=== PATIENT | female | born 1965 ===

== ENCOUNTER 2018-08-10 12:36 | Inpatient (IN) | payer OTHER ==
[2018-08-10 15:00] LABS: BASO # 0.04 K/mm3 (0.0-2.0); BASO % 0.5 % (0.0-3.0); EOS # 0.2 (0.0-0.7); EOS % 2.8 % (1.5-5.0); GRAN # 5.18 (1.4-6.5); GRAN % 65.6 % (50.0-68.0); HEMOGLOBIN 11.2 g/dL (12.0-16.0); LYMPH # 1.9 (1.2-3.4); LYMPH % 23.7 % (22.0-35.0); MEAN CELL VOLUME 90.5 fl (80.0-105.0); MEAN CORPUSCULAR HEMOGLOBIN 28.8 pg (25.0-35.0); MEAN CORPUSCULAR HGB CONC 31.8 g/dl (31.0-37.0); MEAN PLATELET VOLUME 10.2 fl (7.0-11.0); MONO # 0.6 (0.1-0.6); MONO % 7.4 % (1.0-6.0); RBC 3.89 10^6/uL (3.5-6.1); RED CELL DISTRIBUTION WIDTH 12.9 % (11.5-14.5); WHITE BLOOD COUNT 7.9 10^3/uL (4.5-11.0)
[2018-08-10 15:03] LABS: INR 0.95; PARTIAL THROMBOPLASTIN TIME 40.8 Seconds (25.1-36.5); PROTHROMBIN TIME 10.8 SECONDS (9.4-12.5)
--- NOTE | 2018-08-10 15:23 | RAD ---
Date of service: 08/10/2018 PROCEDURE: CHEST RADIOGRAPH, 1 VIEW HISTORY: possible admission COMPARISON: None available. FINDINGS: LUNGS: The lungs are well inflated and clear. PLEURA: No pneumothorax or pleural effusion. CARDIOVASCULAR: The heart is normal in size. No aortic atherosclerotic calcifications present. OSSEOUS STRUCTURES: Within normal limits for the patient's age. VISUALIZED UPPER ABDOMEN: Normal. OTHER FINDINGS: None. IMPRESSION: No active pulmonary disease.
[2018-08-10 15:39] LABS: ALB/GLOB RATIO 1.1 (1.1-1.8); ALBUMIN 4.3 g/dL (3.0-4.8); CALCIUM 9.4 mg/dL (8.4-10.5)
--- NOTE | 2018-08-10 15:42 | RAD ---
Date of service: 08/10/2018 PROCEDURE: Left Foot Radiographs. HISTORY: pain COMPARISON: None. FINDINGS: BONES: There has been previous amputation of the 5th metatarsal and 5th toe. There is bony fusion and deformity of the 4th and 5th metatarsals. JOINTS: Normal. SOFT TISSUES: There is a soft tissue defect on the plantar surface of the foot. There is no adjacent bony destruction to suggest osteomyelitis OTHER FINDINGS: None. IMPRESSION: Soft tissue ulcer on the plantar aspect of the foot with no evidence of osteomyelitis
--- NOTE | 2018-08-10 15:43 | CP.PCM.CON ---
History of Present Illness - History of Present Illness History of Present Illness: Podiatry Consult Note for Dr. Singleton: 52 yo female patient with PMHx of, seen and evaluated for L plantar ulceration. Pt states she is coming to the ED today due to complaints of fever/chills and a painful, draining wound to the left plantar foot. Patient states that she has had her foot ulcer for several months and it has not gotten any better; she notes she has chronic OM. Patient states she completed IV antibiotics and is currently on Cipro. Patient signed out AMA upon last admission at [facility]. Denies any new pedal complaints. Denies N/V/F/SOB. PMHx: DM PSHx: left foot 4h digit and 5th ray amputation ALL: Vancomycin Review of Systems - Review of Systems All systems: reviewed and no additional remarkable complaints except Review of Systems: As per HPI Past Patient History - Infectious Disease Hx of Infectious Diseases: None - Tetanus Immunizations Tetanus Immunization: Unknown - Past Medical History & Family History Past Medical History?: Yes - Past Social History Smoking Status: Former Smoker - CARDIAC Hx Hypercholesterolemia: Yes Hx Hypertension: No (denies) - PULMONARY Hx Asthma: Yes Hx Chronic Obstructive Pulmonary Disease (COPD): Yes Hx Sleep Apnea: Yes - NEUROLOGICAL Hx Neurological Disorder: No - HEENT Hx HEENT Problems: No - RENAL Hx Chronic Kidney Disease: No - ENDOCRINE/METABOLIC Hx Endocrine Disorders: Yes Hx Diabetes Mellitus Type 2: Yes - HEMATOLOGICAL/ONCOLOGICAL Hx Anemia: Yes - INTEGUMENTARY Hx Dermatological Problems: No - MUSCULOSKELETAL/RHEUMATOLOGICAL Hx Musculoskeletal Disorders: Yes Hx Falls: No Hx Herniated Disk: Yes Hx Osteomyelitis: Yes (left foot) - GASTROINTESTINAL Hx Gastrointestinal Disorders: Yes Hx Gastroesophageal Reflux: Yes (GERD) - GENITOURINARY/GYNECOLOGICAL Hx Genitourinary Disorders: No - PSYCHIATRIC Hx Anxiety: Yes Hx Substance Use: Yes - SURGICAL HISTORY Hx Surgeries: Yes Hx Section: Yes (x4) Other/Comment: Toe amputation left foot 5th digit. multiple debridements left foot ulcer - ANESTHESIA Hx Anesthesia: Yes Hx Anesthesia Reactions: No Hx Malignant Hyperthermia: No Meds Allergies/Adverse Reactions: Allergies Allergy/AdvReac Type Severity Reaction Status Date / Time vancomycin Allergy RASH Verified 02/25/18 12:06 Physical Exam - Constitutional Appears: Well, Non-toxic, No Acute Distress - Head Exam Head Exam: ATRAUMATIC, NORMOCEPHALIC - Extremities Exam Additional comments: Left Lower Extremity Exam: Vasc: DP and PT pulses 1/4 bilaterally, capillary refill <3 seconds to all remaining digits, temperature gradient warm to warm, no edema present Derm: 6 cm x 4 cm x 1.2 cm wound present on the lateral aspect of the left plantar midfoot, no drainage, undermining at the proximal aspect, negative probe to bone, hyperkeratotic wound margin, no streaking or periwound erythema present. Malodor appreciated Neuro: Gross sensation intact, diminished protective sensation Ortho: previous fifth ray and 4th digit amputation on the left foot, no pain upon palpation - Neurological Exam Neurological exam: Alert, Oriented x3 - Psychiatric Exam Psychiatric exam: Normal Affect, Normal Mood Results - Vital Signs Recent Vital Signs: Last Vital Signs Temp 98.3 F 08/10/18 12:38 Pulse 81 08/10/18 15:20 Resp 18 08/10/18 15:20 BP 118/79 08/10/18 15:20 Pulse Ox 98 08/10/18 15:20 - Labs Result Diagrams: 08/10/18 14:30 08/10/18 14:30 Labs: Laboratory Results - last 24 hr 08/10/18 08/10/18 08/10/18 14:30 14:30 14:30 WBC 7.9 RBC 3.89 Hgb 11.2 L Hct 35.2 L MCV 90.5 MCH 28.8 MCHC 31.8 RDW 12.9 Plt Count 345 MPV 10.2 Gran % 65.6 Lymph % (Auto) 23.7 [place] % (Auto) 7.4 H Eos % (Auto) 2.8 Baso % (Auto) 0.5 Gran # 5.18 Lymph # (Auto) 1.9 [place] # (Auto) 0.6 Eos # (Auto) 0.2 Baso # (Auto) 0.04 PT 10.8 INR 0.95 APTT 40.8 H Sodium 137 Potassium 5.0 Chloride 103 Carbon Dioxide 25 Anion Gap 15 BUN 24 H Creatinine 1.3 H Est GFR ( Amer) 52 Est GFR (Non-Af Amer) 43 Random Glucose 383 H* Calcium 9.4 Total Bilirubin 0.3 AST 20 ALT 19 Alkaline Phosphatase 143 H Total Protein 8.2 Albumin 4.3 Globulin 3.9 Albumin/Globulin Ratio 1.1 Assessment & Plan - Assessment and Plan (Free Text) Assessment: 52 year old female seen and evaluated in ED for left foot plantar ulceration w ith chronic osteomyelitis. Patient will be admitted for observation Plan: Patient seen and evaluated VSS, absent leukocytosis L foot x-rays taken: Post operative changes. Plantar soft tissue ulcer Continue Cipro at this time, no IV Abx Wound culture taken from L plantar ulceration Thank you for the consult - Date & Time Date: 08/10/18 Time: 15:44
--- NOTE | 2018-08-10 15:48 | ED PDOC ---
Arrival/HPI - General Chief Complaint: Abnormal Skin Integrity Time Seen by Provider: 08/10/18 12:50 Historian: Patient - History of Present Illness Narrative History of Present Illness (Text): 08/10/18 14:27 52 year old female with past medical history of IDDM, HLD, Asthma, and Migraines, presents to the Emergency department for evaluation of left plantar ulceration today. Patient informs chronic left foot ulceration, for which she was evaluated by Dr. Singleton in the wound care center 3 weeks ago. During her last visit, patient was advised to see a new rickshaw driver since Dr. Singleton is leaving and was told to come to the Emergency department to find a new rickshaw driver. Patent states she was on Levaquin for 20 days and is currently now on Cipro. Patient informs intermittent fever and chills, otherwise denies any other medical complaints. Patient denies any nausea, vomiting, diarrhea, abdominal pain, chest pain, shortness of breath, headache, dizziness, neck pain, back pain or any other complaints. Patient denies taking her diabetes medication today. Patient denies checking her blood sugar daily. Symptom Onset: Gradual Symptom Course: Unchanged Activities at Onset: Light Context: Home Past Medical History - Provider Review Nursing Documentation Reviewed: Yes - Infectious Disease Hx of Infectious Diseases: None - Tetanus Immunization Tetanus Immunization: Unknown - Cardiac Hx Hypertension: No (denies) - Pulmonary Hx Asthma: Yes Hx Chronic Obstructive Pulmonary Disease (COPD): Yes Hx Sleep Apnea: Yes - Neurological Hx Neurological Disorder: No - HEENT Hx HEENT Disorder: No - Renal Hx Renal Disorder: No - Endocrine/Metabolic Hx Endocrine Disorders: Yes Hx Diabetes Mellitus Type 2: Yes - Hematological/Oncological Hx Anemia: Yes - Integumentary Hx Dermatological Disorder: No - Musculoskeletal/Rheumatological Hx Musculoskeletal Disorders: Yes Hx Falls: No Hx Herniated Disk: Yes Hx Osteomyelitis: Yes (left foot) - Gastrointestinal Hx Gastrointestinal Disorders: Yes Hx Gastroesophageal Reflux: Yes (GERD) - Genitourinary/Gynecological Hx Genitourinary Disorders: No - Psychiatric Hx Anxiety: Yes Hx Substance Use: Yes - Surgical History Hx Section: Yes (x4) Other/Comment: Toe amputation left foot 5th digit. multiple debridements left foot ulcer - Anesthesia Hx Anesthesia: Yes Hx Anesthesia Reactions: No Hx Malignant Hyperthermia: No - Suicidal Assessment Feels Threatened In Home Enviroment: No Family/Social History - Physician Review Nursing Documentation Reviewed: Yes Family/Social History: Unknown Family HX Smoking Status: Former Smoker Hx Alcohol Use: No Hx Substance Use: Yes Allergies/Home Meds Allergies/Adverse Reactions: Allergies vancomycin Allergy (Verified 02/25/18 12:06) RASH Home Medications: Home Meds Medication Instructions Recorded Confirmed Alprazolam [Xanax] 0.5 mg PO Q12 06/07/16 08/10/18 metFORMIN [glucOPHAGE] 850 mg PO BID 06/07/16 08/10/18 Gemfibrozil [Lopid] 600 mg PO DAILY 03/07/17 08/10/18 Zolpidem [Ambien] 10 mg PO HS 04/24/17 08/10/18 Acetaminophen/Butalbital/Caf 1 tab PO Q12 PRN 02/26/18 08/10/18 [Fioricet] Albuterol Sulfate [Ventolin Hfa] 2 puff IH Q4 PRN 02/26/18 07/13/18 Omeprazole 40 mg PO DAILY 02/26/18 07/13/18 Insulin Lispro [humALOG] 45 unit SC BID 07/13/18 07/13/18 Atorvastatin [Lipitor] 1 tab PO HS 08/10/18 08/10/18 Baclofen [Lioresal] 1 tab PO TID 08/10/18 08/10/18 Empagliflozin [Jardiance] 1 tab PO DAILY 08/10/18 08/10/18 Fluticasone/Vilanterol 200/25 1 puff IH DAILY 08/10/18 08/10/18 [Breo Ellipta 200-25 Mcg INH] Insulin Lispro Mix 75/25 [HumaLOG 1 unit SC DAILY 08/10/18 08/10/18 Mix 75/25] Oxycodone HCl/Acetaminophen 1 tab PO PRN PRN 08/10/18 08/10/18 [Endocet 10-325 mg Tablet] Polyethylene Glycol 3350 [Miralax] 17 g PO PRN PRN 08/10/18 08/10/18 Review of Systems - Physician Review All systems were reviewed & negative as marked: Yes - Review of Systems Constitutional: Fevers Eyes: absent: Vision Changes Respiratory: absent: SOB, Cough Cardiovascular: absent: Chest Pain, HARRELL Gastrointestinal: absent: Abdominal Pain, Diarrhea, Nausea, Vomiting Genitourinary Female: absent: Dysuria, Urine Output Changes Musculoskeletal: absent: Back Pain, Neck Pain Skin: Other (left foot ulceration) Neurological: absent: Headache, Dizziness Endocrine: absent: Diaphoresis Psychiatric: absent: Anxiety Physical Exam Vital Signs Reviewed: Yes Vital Signs Temp Pulse Resp BP Pulse Ox 08/10/18 15:20 81 18 118/79 98 08/10/18 14:36 89 18 115/78 98 08/10/18 12:38 98.3 F 96 H 18 111/73 98 Temperature: Afebrile Blood Pressure: Normal Pulse: Regular Respiratory Rate: Normal Appearance: Positive for: Well-Appearing, Non-Toxic, Comfortable Pain Distress: None Mental Status: Positive for: Alert and Oriented X 3 - Systems Exam Head: Present: Atraumatic, Normocephalic Pupils: Present: PERRL Extroacular Muscles: Present: EOMI Conjunctiva: Present: Normal Neck: Present: Normal Range of Motion Respiratory/Chest: Present: Clear to Auscultation, Good Air Exchange. No: Respiratory Distress, Accessory Muscle Use Cardiovascular: Present: Regular Rate and Rhythm, Normal S1, S2. No: Murmurs Abdomen: No: Tenderness, Distention, Peritoneal Signs Upper Extremity: Present: Normal Inspection. No: Cyanosis, Edema Lower Extremity: Present: Normal ROM, Other (2-3 cm deep open wound noted to plantar aspect of left foot.). No: Edema Neurological: Present: GCS=15, CN II-XII Intact, Speech Normal Skin: Present: Warm, Dry, Normal Color. No: Rashes Psychiatric: Present: Alert, Oriented x 3, Normal Insight, Normal Concentration Medical Decision Making ED Course and Treatment: 08/10/18 14:27 Impression: 52 year old female presents to the Emergency department for evaluation of left foot ulceration. Plan: -- EKG -- Labs -- Chest X- Ray -- Wound Culture -- X-ray of Left foot -- Reassess and disposition Prior Visits: Notes and results from previous visits were reviewed. Progress Notes: X-ray left foot : Soft tissue ulcer on the plantar aspect of the foot with no evidence of osteomyelitis. CXR : NAD, as read by PA. Labs reviewed : wbc 7.9, glucose 383, bun 24 / creat 1.3 Patient seen and evaluated by podiatry resident Dr. John, recommends admission for IV antibiotics and wound debridement tomorrow. Cipro 400 mg IV, NS bolus IV and insulin 6 units SC ordered. Case d/w Dr. Rios, agrees with plan to admit to the hospitalist service. On re-evaluation, patient is resting in bed comfortably in no acute distress. Notified of plan for admission which she agrees to. Diagnostic results d/w the patient. - Lab Interpretations Lab Results: 08/10/18 14:30 08/10/18 14:30 Lab Results 08/10/18 14:30: Sodium 137, Potassium 5.0, Chloride 103, Carbon Dioxide 25, Anion Gap 15, BUN 24 H, Creatinine 1.3 H, Est GFR ( Amer) 52, Est GFR (Non-Af Amer) 43, Random Glucose 383 H*, Calcium 9.4, Total Bilirubin 0.3, AST 20, ALT 19, Alkaline Phosphatase 143 H, Total Protein 8.2, Albumin 4.3, Globulin 3.9, Albumin/Globulin Ratio 1.1 08/10/18 14:30: PT 10.8, INR 0.95, APTT 40.8 H 08/10/18 14:30: WBC 7.9, RBC 3.89, Hgb 11.2 L, Hct 35.2 L, MCV 90.5, MCH 28.8, MCHC 31.8, RDW 12.9, Plt Count 345, MPV 10.2, Gran % 65.6, Lymph % (Auto) 23.7, [place] % (Auto) 7.4 H, Eos % (Auto) 2.8, Baso % (Auto) 0.5, Gran # 5.18, Lymph # (Auto) 1.9, [place] # (Auto) 0.6, Eos # (Auto) 0.2, Baso # (Auto) 0.04 - RAD Interpretation Radiology Orders: 08/10/18 14:29 FOOT LEFT 3 VIEWS ROUTINE [RAD] Stat 08/10/18 14:30 CHEST ONE VIEW [RAD] Stat - PA / TELEPHONE AD TAKER / Resident Statement MD/DO has reviewed & agrees with the documentation as recorded. - Scribe Statement The provider has reviewed the documentation as recorded by the Scribe Arpan Hunter. All medical record entries made by the Scribe were at my direction and personally dictated by me. I have reviewed the chart and agree that the record accurately reflects my personal performance of the history, physical exam, medical decision making, and the department course for this patient. I have also personally directed, reviewed, and agree with the discharge instructions and disposition. Disposition/Present on Arrival - Present on Arrival Any Indicators Present on Arrival: No History of DVT/PE: No History of Uncontrolled Diabetes: No Urinary Catheter: No History of Decub. Ulcer: No History Surgical Site Infection Following: None - Disposition Have Diagnosis and Disposition been Completed?: Yes Diagnosis: Diabetic foot ulcer Disposition: HOSPITALIZED Disposition Time: 16:30 Patient Plan: Admission Condition: STABLE
[2018-08-10] MEDS ORDERED: Ciprofloxacin 400mg/200ml D5W 400 MG/200 ML BAG IVPB STA (16:03)
[2018-08-10] MEDS ORDERED: Insulin Regular 1 UNITS/0.01 ML ML SC STA (16:03)
[2018-08-10] MEDS ORDERED: Sodium Chloride 0.9% 1,000 ML IV STA ×2 (16:03→18:14)
--- NOTE | 2018-08-10 16:46 | CP.PCM.HP ---
History of Present Illness - History of Present Illness History of Present Illness: Resident History & Physical for Hospitalist Service Patient is a 52 year old female with past medical history of T2DM, HLD, asthma, migraines presenting with chief complaint of left lower extremity pain due to a wound on the plantar surface of her foot. She states this wound has been present for the past two years and she has chronic pain because of this. However the pain has worsened in severity over the past several months. Patient was in [place] recently for management of this wound and was unable to continue recommended antibiotics on discharge due to lack of insurance coverage. She has been taking ciprofloxacin for 2 days which was prescribed by Dr. Singleton. Pain is constant and described as sharp and stabbing in character. She rates the pain +10/10 in severity. She states keeping the foot wrapped and elevating it helps alleviate the pain. She also admits to chills. Denies fevers, nausea, vomiting, chest pain, shortness of breath, abdominal pain, dysuria. PMH: T2DM, HLD, asthma, migraines PSH: left foot 5th ray and 4th digit amputation SHx: denies alcohol and recreational drug use. 2 cigarettes a day for approximately 20 years. Allergies: vancomycin PMD: Dr. Vallejo 12 ROS was negative except as stated in HPI Present on Admission - Present on Admission Any Indicators Present on Admission: Yes History of Uncontrolled Diabetes: Yes Review of Systems - Constitutional Constitutional: Chills. absent: Fever, Headache - EENT Eyes: absent: Change in Vision Ears: absent: Abnormal Hearing - Cardiovascular Cardiovascular: absent: Chest Pain, Diaphoresis, Dyspnea - Respiratory Respiratory: absent: Cough - Gastrointestinal Gastrointestinal: absent: Abdominal Pain, Change in Bowel Habits - Genitourinary Genitourinary: absent: Dysuria - Integumentary Integumentary: Wounds Past Patient History - Infectious Disease Hx of Infectious Diseases: None - Tetanus Immunizations Tetanus Immunization: Unknown - Past Medical History & Family History Past Medical History?: Yes - Past Social History Smoking Status: Light Smoker < 10 Cigarettes Daily - CARDIAC Hx Hypertension: No (denies) - PULMONARY Hx Asthma: Yes Hx Chronic Obstructive Pulmonary Disease (COPD): Yes Hx Sleep Apnea: Yes - NEUROLOGICAL Hx Neurological Disorder: No - HEENT Hx HEENT Problems: No - RENAL Hx Chronic Kidney Disease: No - ENDOCRINE/METABOLIC Hx Endocrine Disorders: Yes Hx Diabetes Mellitus Type 2: Yes - HEMATOLOGICAL/ONCOLOGICAL Hx Anemia: Yes - INTEGUMENTARY Hx Dermatological Problems: No - MUSCULOSKELETAL/RHEUMATOLOGICAL Hx Musculoskeletal Disorders: Yes Hx Falls: No Hx Herniated Disk: Yes Hx Osteomyelitis: Yes (left foot) - GASTROINTESTINAL Hx Gastrointestinal Disorders: Yes Hx Gastroesophageal Reflux: Yes (GERD) - GENITOURINARY/GYNECOLOGICAL Hx Genitourinary Disorders: No - PSYCHIATRIC Hx Anxiety: Yes Hx Substance Use: Yes - SURGICAL HISTORY Hx Section: Yes (x4) Other/Comment: Toe amputation left foot 5th digit. multiple debridements left foot ulcer - ANESTHESIA Hx Anesthesia: Yes Hx Anesthesia Reactions: No Hx Malignant Hyperthermia: No Meds Allergies/Adverse Reactions: Allergies Allergy/AdvReac Type Severity Reaction Status Date / Time vancomycin Allergy RASH Verified 02/25/18 12:06 Physical Exam - Constitutional Appears: Non-toxic, No Acute Distress - Head Exam Head Exam: ATRAUMATIC, NORMOCEPHALIC - Eye Exam Eye Exam: EOMI, Normal appearance, PERRL - ENT Exam ENT Exam: Mucous Membranes Moist, Normal Exam - Neck Exam Neck exam: Positive for: Normal Inspection. Negative for: Lymphadenopathy, Tenderness - Respiratory Exam Respiratory Exam: Clear to Auscultation Bilateral, NORMAL BREATHING PATTERN. absent: Rales, Rhonchi, Wheezes, Respiratory Distress - Cardiovascular Exam Cardiovascular Exam: REGULAR RHYTHM, +S1, +S2 - GI/Abdominal Exam GI & Abdominal Exam: Normal Bowel Sounds, Soft. absent: Tenderness - Extremities Exam Extremities exam: Negative for: pedal edema Additional comments: 6 cm by 4 cm stage 3 wound on plantar surface of LLE Left 5th ray and 4th digit amputation Erythema surrounding wound No drainage +2/4 pulses - Neurological Exam Neurological exam: Alert, CN II-XII Intact, Oriented x3 - Skin Skin Exam: Intact, Normal Color, Warm Results - Vital Signs Recent Vital Signs: Last Vital Signs Temp 98.3 F 08/10/18 12:38 Pulse 81 08/10/18 15:20 Resp 18 08/10/18 15:20 BP 118/79 08/10/18 15:20 Pulse Ox 98 08/10/18 15:20 - Labs Result Diagrams: 08/10/18 14:30 08/10/18 14:30 Labs: Laboratory Results - last 24 hr 08/10/18 08/10/18 08/10/18 14:30 14:30 14:30 WBC 7.9 RBC 3.89 Hgb 11.2 L Hct 35.2 L MCV 90.5 MCH 28.8 MCHC 31.8 RDW 12.9 Plt Count 345 MPV 10.2 Gran % 65.6 Lymph % (Auto) 23.7 [place] % (Auto) 7.4 H Eos % (Auto) 2.8 Baso % (Auto) 0.5 Gran # 5.18 Lymph # (Auto) 1.9 [place] # (Auto) 0.6 Eos # (Auto) 0.2 Baso # (Auto) 0.04 PT 10.8 INR 0.95 APTT 40.8 H Sodium 137 Potassium 5.0 Chloride 103 Carbon Dioxide 25 Anion Gap 15 BUN 24 H Creatinine 1.3 H Est GFR ( Amer) 52 Est GFR (Non-Af Amer) 43 Random Glucose 383 H* Calcium 9.4 Total Bilirubin 0.3 AST 20 ALT 19 Alkaline Phosphatase 143 H Total Protein 8.2 Albumin 4.3 Globulin 3.9 Albumin/Globulin Ratio 1.1 Assessment & Plan - Assessment and Plan (Free Text) Assessment: Patient is a 52 year old female with past medical history of T2DM, HLD, asthma, migraines presenting with chief complaint of left lower extremity pain due to a wound on the plantar surface of her foot. Plan: LLE wound - Foot x-ray shows soft tissue defect on plantar surface, no adjacent bony sean truction to suggest osteomyelitis - Afebrile, no leukocytosis - Zosyn 3.375 gm IV Q8H - Zyvox 600 mg IV Q12 - NS @ 100 ccs/hr - Percocet 1 tab Q4H PRN - Followup wound and blood cultures - Podiatry consulted. Appreciate recs. - ID consulted. Appreciate recs. - PT eval T2DM - glucose on admission 383 - Hgba1c from 04/26 was 12.9 - Humalog 20 units SC BID - ISS HLD - Continue Lipitor 10 mg PO HS, Lopid 600 mg PO daily Asthma - Continue albuterol Case discussed with attending Dr. Padmini Claros PGY-1 - Date & Time Date: 08/10/18 Time: 18:00
[2018-08-10] MEDS ORDERED: Albuterol HFA 90 mcg/actuation (8 g) IH PRN (18:02)
[2018-08-10] MEDS ORDERED: Dextrose 50% SYRINGE Inj (50 ml) IV PRN (18:05)
[2018-08-10] MEDS ORDERED: Albuterol 0.083% Inhal Sol (2.5 mg/3 mL) UD IH PRN ×2 (18:28→18:29)
[2018-08-10] MEDS: Piperacillin/Tazobact 3.375 gm 100 ML IVPB SCH ×2 (20:13→21:59)
[2018-08-10] MEDS: Oxycodone/Acetaminophen 5/325 mg Tab PO PRN (20:13)
[2018-08-10] MEDS: Insulin Lispro 1 UNITS/0.01 ML SC SCH (20:45)
[2018-08-10] MEDS: Insulin Reg-LOW-Coverage SC SCH (21:45)
[2018-08-10] MEDS ORDERED: Linezolid 600 mg in D5W 300 ml 600 MG/300 ML BAG IVPB SCH (22:00)
[2018-08-10] MEDS ORDERED: Influenza Vaccine 60 mcg/0.5 mL SYR (4YR UP) IM ONE (22:44)
[2018-08-10] MEDS ORDERED: Pneumococcal 23-Valent Vaccine IM ONE (22:44)
[2018-08-11 00:12] VITALS: BMI 26.1
--- NOTE | 2018-08-11 03:31 | CP.PCM.PCO ---
Physician Communication Note - Physician Communication Note Physician Communication Note: Chart reviewed. Noted MRSA and E. coli (resist cipro) on Jun 2018 culture.
[2018-08-11 04:52] LABS: BASO # 0.01 K/mm3 (0.0-2.0); BASO % 0.2 % (0.0-3.0); EOS # 0.1 (0.0-0.7); GRAN # 5.36 (1.4-6.5); GRAN % 81.4 % (50.0-68.0); HEMOGLOBIN 10.5 g/dL (12.0-16.0); LYMPH # 0.5 (1.2-3.4); LYMPH % 8.2 % (22.0-35.0); MEAN CELL VOLUME 90.9 fl (80.0-105.0); MEAN CORPUSCULAR HEMOGLOBIN 28.9 pg (25.0-35.0); MEAN CORPUSCULAR HGB CONC 31.8 g/dl (31.0-37.0); MEAN PLATELET VOLUME 10.2 fl (7.0-11.0); MONO # 0.5 (0.1-0.6); MONO % 8.2 % (1.0-6.0); RBC 3.63 10^6/uL (3.5-6.1); RED CELL DISTRIBUTION WIDTH 12.8 % (11.5-14.5); WHITE BLOOD COUNT 6.6 10^3/uL (4.5-11.0)
[2018-08-11 05:35] LABS: ALBUMIN 3.5 g/dL (3.0-4.8); CALCIUM 9.1 mg/dL (8.4-10.5)
[2018-08-11] MEDS: Pantoprazole 40 mg EC Tab PO SCH (08:21)
[2018-08-11] MEDS: Insulin Reg-LOW-Coverage SC SCH (08:21)
--- NOTE | 2018-08-11 09:29 | CARD ---
APPROVED REPORT Date of service: 08/10/2018 EKG Measurement Heart [id number] <Conclusion> Normal sinus rhythm PRWP Septal infarct, age undetermined
[2018-08-11] MEDS: [UNRECOGNIZED DRUG - OTHER] IH SCH (09:46)
[2018-08-11] MEDS: Insulin Lispro 1 UNITS/0.01 ML SC SCH ×4 (09:46→18:08)
--- NOTE | 2018-08-11 09:55 | CP.PCM.PN ---
Subjective - Date & Time of Evaluation Date of Evaluation: 08/11/18 Time of Evaluation: 07:30 - Subjective Subjective: Resident Progress Note for Hospitalist Service Patient examined at bedside. No acute events overnight. Patient states that her LLE pain is well controlled. Denies any other complaints at this time. Objective - Vital Signs/Intake and Output Vital Signs (last 24 hours): Temp Pulse Resp BP Pulse Ox 97.8 F 78 18 126/81 99 08/11/18 06:00 08/11/18 06:00 08/11/18 06:00 08/11/18 06:00 08/11/18 06:00 Intake and Output: 08/11/18 08/11/18 06:59 18:59 Intake Total 850 Balance 850 - Medications Medications: Current Medications Acetaminophen (Tylenol 325mg Tab) 650 mg PO Q6H PRN PRN Reason: Fever >100.4 F Albuterol Sulfate (Albuterol 0.083% Inhal Loly (2.5 Mg/3 Ml) Ud) 2.5 mg IH [id number] PRN PRN Reason: Shortness of Breath Alprazolam (Xanax) 0.5 mg PO Q12 [facility]; Protocol Last Admin: 08/11/18 09:47 Dose: 0.5 mg Atorvastatin Calcium (Lipitor) 10 mg PO HS [facility] Last Admin: 08/10/18 21:47 Dose: Not Given Dextrose (Dextrose 50% Inj) 0 ml IV STAT PRN; Protocol PRN Reason: Hypoglycemia Protocol Gemfibrozil (Lopid) 600 mg PO DAILY [facility] Last Admin: 08/11/18 09:47 Dose: 600 mg Heparin Sodium (Porcine) (Heparin) 5,000 units SC Q12 [facility]; Protocol Last Admin: 08/11/18 09:46 Dose: Not Given Dextrose (Dextrose 5% In Water 1000 Ml) 1,000 mls @ 0 mls/hr IV .Q0M PRN; Protocol PRN Reason: Hypoglycemia Protocol Insulin Human Lispro (Humalog) 25 units SC BID [facility] Insulin Human Regular (Humulin R High) 0 units SC ACHS [facility]; Protocol Non-Formulary Medication (Fluticasone/Vilanterol 200/25 [Breo Ellipta 200-25 Mcg Inh]) 1 puff IH DAILY [facility] Last Admin: 08/11/18 09:46 Dose: Not Given Oxycodone/Acetaminophen (Percocet 5/325 Mg Tab) 1 tab PO Q4H PRN PRN Reason: Pain, severe (8-10) Stop: 08/13/18 18:16 Last Admin: 08/10/18 20:13 Dose: 1 tab Pantoprazole Sodium (Protonix Ec Tab) 40 mg PO ACB [facility] Last Admin: 08/11/18 08:21 Dose: 40 mg Zolpidem Tartrate (Ambien) 5 mg PO HS [facility] Last Admin: 08/10/18 21:52 Dose: 5 mg - Labs Labs: 08/11/18 04:20 08/11/18 04:20 PT 10.8 SECONDS (9.4-12.5) 08/10/18 14:30 INR 0.95 08/10/18 14:30 APTT 40.8 Seconds (25.1-36.5) H 08/10/18 14:30 - Additional Findings Additional findings: - Constitutional Appears: Non-toxic, No Acute Distress - Head Exam Head Exam: ATRAUMATIC, NORMOCEPHALIC - Eye Exam Eye Exam: EOMI, Normal appearance, PERRL - ENT Exam ENT Exam: Mucous Membranes Moist, Normal Exam - Neck Exam Neck exam: Positive for: Normal Inspection. Negative for: Lymphadenopathy, Tenderness - Respiratory Exam Respiratory Exam: Clear to Auscultation Bilateral, NORMAL BREATHING PATTERN. absent: Rales, Rhonchi, Wheezes, Respiratory Distress - Cardiovascular Exam Cardiovascular Exam: REGULAR RHYTHM, +S1, +S2 - GI/Abdominal Exam GI & Abdominal Exam: Normal Bowel Sounds, Soft. absent: Tenderness - Extremities Exam Extremities exam: Negative for: pedal edema Additional comments: 6 cm by 4 cm stage 3 wound on plantar surface of LLE Left 5th ray and 4th digit amputation Erythema surrounding wound No drainage +1/4 pulses - Neurological Exam Neurological exam: Alert, CN II-XII Intact, Oriented x3 - Skin Skin Exam: Intact, Normal Color, Warm Assessment and Plan - Assessment and Plan (Free Text) Assessment: Patient is a 52 year old female with past medical history of T2DM, HLD, asthma, migraines presenting with chief complaint of left lower extremity pain due to a wound on the plantar surface of her foot. Plan: LLE wound - s/p wound debridement - Foot x-ray shows soft tissue defect on plantar surface, no adjacent bony destruction to suggest osteomyelitis - ESR 114, CRP 15.90 - Afebrile, no leukocytosis - Zosyn 3.375 gm IV Q8H - Zyvox 600 mg IV Q12 - NS @ 100 ccs/hr - Percocet 1 tab Q4H PRN - Followup wound and blood cultures - Podiatry consulted. Appreciate recs. - ID consulted. Appreciate recs. - PT eval T2DM - Hgba1c 11.7 - Humalog 9 units SC TID - Levemir 26 units SC HS - ISS HLD - Continue Lipitor 10 mg PO HS, Lopid 600 mg PO daily Asthma - Continue albuterol Case discussed with attending Dr. Padmini Claros PGY-1
[2018-08-11] MEDS: Insulin Reg-HIGH-Coverage SC SCH ×3 (11:51→22:41)
[2018-08-11] MEDS: Oxycodone/Acetaminophen 5/325 mg Tab PO PRN ×2 (12:42→18:40)
--- NOTE | 2018-08-11 14:15 | CP.PCM.PN ---
Subjective - Date & Time of Evaluation Date of Evaluation: 08/11/18 Time of Evaluation: 14:01 - Subjective Subjective: Podiatry Consult Note for Dr. Singleton: 52 yo female patient with PMHx of, seen and evaluated for L plantar ulceration. Patient is seen resting comfortably, and states her chills have resolved. Patient denies any complaints of pain at this time. Patient denies any F/N/V/SOB/chills Objective - Vital Signs/Intake and Output Vital Signs (last 24 hours): Temp Pulse Resp BP Pulse Ox 97.8 F 78 18 126/81 99 08/11/18 06:00 08/11/18 06:00 08/11/18 06:00 08/11/18 06:00 08/11/18 06:00 Intake and Output: 08/11/18 08/11/18 06:59 18:59 Intake Total 850 Balance 850 - Medications Medications: Current Medications Acetaminophen (Tylenol 325mg Tab) 650 mg PO Q6H PRN PRN Reason: Fever >100.4 F Albuterol Sulfate (Albuterol 0.083% Inhal Loly (2.5 Mg/3 Ml) Ud) 2.5 mg IH [id number] PRN PRN Reason: Shortness of Breath Alprazolam (Xanax) 0.5 mg PO Q12 [facility]; Protocol Last Admin: 08/11/18 09:47 Dose: 0.5 mg Atorvastatin Calcium (Lipitor) 10 mg PO HS [facility] Last Admin: 08/10/18 21:47 Dose: Not Given Dextrose (Dextrose 50% Inj) 0 ml IV STAT PRN; Protocol PRN Reason: Hypoglycemia Protocol Gemfibrozil (Lopid) 600 mg PO DAILY [facility] Last Admin: 08/11/18 09:47 Dose: 600 mg Heparin Sodium (Porcine) (Heparin) 5,000 units SC Q12 [facility]; Protocol Last Admin: 08/11/18 09:46 Dose: Not Given Dextrose (Dextrose 5% In Water 1000 Ml) 1,000 mls @ 0 mls/hr IV .Q0M PRN; Protocol PRN Reason: Hypoglycemia Protocol Insulin Human Lispro (Humalog) 25 units SC BID [facility] Last Admin: 08/11/18 11:50 Dose: Not Given Insulin Human Regular (Humulin R High) 0 units SC ACHS [facility]; Protocol Last Admin: 08/11/18 11:51 Dose: Not Given Non-Formulary Medication (Fluticasone/Vilanterol 200/25 [Breo Ellipta 200-25 Mcg Inh]) 1 puff IH DAILY [facility] Last Admin: 08/11/18 09:46 Dose: Not Given Oxycodone/Acetaminophen (Percocet 5/325 Mg Tab) 1 tab PO Q4H PRN PRN Reason: Pain, severe (8-10) Stop: 08/13/18 18:16 Last Admin: 08/11/18 12:42 Dose: 1 tab Pantoprazole Sodium (Protonix Ec Tab) 40 mg PO ACB [facility] Last Admin: 08/11/18 08:21 Dose: 40 mg Zolpidem Tartrate (Ambien) 5 mg PO HS [facility] Last Admin: 08/10/18 21:52 Dose: 5 mg - Labs Labs: 08/11/18 04:20 08/11/18 04:20 PT 10.8 SECONDS (9.4-12.5) 08/10/18 14:30 INR 0.95 08/10/18 14:30 APTT 40.8 Seconds (25.1-36.5) H 08/10/18 14:30 - Constitutional Appears: Well, Non-toxic, No Acute Distress - Head Exam Head Exam: ATRAUMATIC, NORMOCEPHALIC - Extremities Exam Additional comments: Left Lower Extremity Exam: Vasc: DP and PT pulses 1/4 bilaterally, capillary refill <3 seconds to all remaining digits, temperature gradient warm to warm, no edema present Derm: 6 cm x 4 cm x 1.2 cm wound present on the lateral aspect of the left plantar midfoot, no drainage, undermining at the proximal aspect, negative probe to bone, hyperkeratotic wound margin, no streaking or periwound erythema present. Malodor appreciated Neuro: Gross sensation intact, diminished protective sensation Ortho: 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 Plan: Patient seen and evaluated Chart, labs and vitals were reviewed- afebrile, absent leukocytosis ESR- 114 L foot x-rays taken: Post operative changes. Plantar soft tissue ulcer Continue IV Abx Wound Culture- Pending Wound debrided with a #15 sterile blade, patient tolerated well Wound cleased with saline and dressed with xeroform, [facility]ry will continue to follow the patient while in house
--- NOTE | 2018-08-11 19:04 | CP.PCM.CON ---
History of Present Illness - History of Present Illness History of Present Illness: Infectious Disease Consultation: August 11, 2018 52 year old female with past medical history of T2DM, HLD, asthma, migraines presenting with chief complaint of left lower extremity pain due to a wound on the plantar surface of her foot. She states this wound has been present for the past two years and she has chronic pain because of this. However the pain has worsened in severity over the past several months. Patient was in [place] recently for management of this wound and was unable to continue recommended antibiotics on discharge due to lack of insurance coverage. She has been taking ciprofloxacin for 2 days which was prescribed by Dr. Singleton. Pain is constant and described as sharp and stabbing in character. She rates the pain +10/10 in severity. She states keeping the foot wrapped and elevating it helps alleviate the pain. She also admits to chills. Denies fevers, nausea, vomiting, chest pain, shortness of breath, abdominal pain, dysuria. Cultures showing Gram negative rods and gram positive cocci. E. Coli and MRSA in June 2018 cultures. The patient has a Vancomycin allergy. PMHx: DM, HLD, asthma, migraines, left foot ulceration PSHx: left foot 5th ray and 4th digit amputation Allergies: Vancomycin Social Hx: No tobacco, EtOH, or illicit drug use Active Medications Acetaminophen (Tylenol 325mg Tab) 650 mg PO Q6H PRN PRN Reason: Fever >100.4 F Albuterol Sulfate (Albuterol 0.083% Inhal Loly (2.5 Mg/3 Ml) Ud) 2.5 mg IH Q4HRE SP PRN PRN Reason: Shortness of Breath Alprazolam (Xanax) 0.5 mg PO Q12 [facility]; Protocol Last Admin: 08/11/18 09:47 Dose: 0.5 mg Atorvastatin Calcium (Lipitor) 10 mg PO HS [facility] Last Admin: 08/10/18 21:47 Dose: Not Given Dextrose (Dextrose 50% Inj) 0 ml IV STAT PRN; Protocol PRN Reason: Hypoglycemia Protocol Gemfibrozil (Lopid) 600 mg PO DAILY [facility] Last Admin: 08/11/18 09:47 Dose: 600 mg Heparin Sodium (Porcine) (Heparin) 5,000 units SC Q12 [facility]; Protocol Last Admin: 08/11/18 09:46 Dose: Not Given Dextrose (Dextrose 5% In Water 1000 Ml) 1,000 mls @ 0 mls/hr IV .Q0M PRN; Protocol PRN Reason: Hypoglycemia Protocol Piperacillin Sod/Tazobactam Sod (Zosyn 3.375 In Ns 100ml) 100 mls @ 25 mls/hr IVPB Q8 [facility]; Protocol Linezolid (Zyvox 600mg/300ml D5w) 600 mg in 300 mls @ 200 mls/hr IVPB Q12 [facility]; Protocol Stop: 08/11/18 23:29 Insulin Detemir (Levemir) 26 unit SC HS [facility] Insulin Human Lispro (Humalog) 9 units SC TID [facility] Last Admin: 08/11/18 18:08 Dose: Not Given Insulin Human Regular (Humulin R High) 0 units SC ACHS [facility]; Protocol Last Admin: 08/11/18 16:45 Dose: Not Given Non-Formulary Medication (Fluticasone/Vilanterol 200/25 [Breo Ellipta 200-25 Mcg Inh]) 1 puff IH DAILY [facility] Last Admin: 08/11/18 09:46 Dose: Not Given Oxycodone/Acetaminophen (Percocet 5/325 Mg Tab) 1 tab PO Q4H PRN PRN Reason: Pain, severe (8-10) Stop: 08/13/18 18:16 Last Admin: 08/11/18 18:40 Dose: 1 tab Pantoprazole Sodium (Protonix Ec Tab) 40 mg PO ACB [facility] Last Admin: 08/11/18 08:21 Dose: 40 mg Zolpidem Tartrate (Ambien) 5 mg PO HS [facility] Last Admin: 08/10/18 21:52 Dose: 5 mg Family Hx: No given history ROS: No fevers, chills, nausea, vomiting, diarrhea, headaches, dizziness, chest pain, abdominal pain, melena, hematuria, hematemesis, hematochezia, depression, anxiety Past Patient History - Infectious Disease Hx of Infectious Diseases: None - Tetanus Immunizations Tetanus Immunization: Unknown - Past Medical History & Family History Past Medical History?: Yes - Past Social History Smoking Status: Light Smoker < 10 Cigarettes Daily - CARDIAC Hx Cardiac Disorders: Yes Hx Hypercholesterolemia: Yes Hx Hypertension: No (denies) - PULMONARY Hx Chronic Obstructive Pulmonary Disease (COPD): Yes - NEUROLOGICAL Hx Neurological Disorder: No - HEENT Hx HEENT Problems: No - RENAL Hx Chronic Kidney Disease: No - ENDOCRINE/METABOLIC Hx Diabetes Mellitus Type 1: Yes (dx 20 yrs go) Hx Diabetes Mellitus Type 2: Yes - HEMATOLOGICAL/ONCOLOGICAL Hx Blood Disorders: Yes Hx Anemia: Yes (blood transfusions x 3) - INTEGUMENTARY Hx Dermatological Problems: Yes Other/Comment: callous to bunyon of left foot, dry skin left foot, 5th toe amputated dry brown skin to site, thick toenails, calloused x2 to ball of right foot, dry skin to foot and thick hard nails, 2cm x 3cm deep draining wound to bottom of left foot - MUSCULOSKELETAL/RHEUMATOLOGICAL Hx Falls: No - GASTROINTESTINAL Hx Gastrointestinal Disorders: Yes Hx Gastroesophageal Reflux: Yes (GERD) - GENITOURINARY/GYNECOLOGICAL Hx Genitourinary Disorders: No - PSYCHIATRIC Hx Substance Use: No - SURGICAL HISTORY Hx Surgeries: Yes Other/Comment: Toe amputation left foot 5th digit. multiple debridements left foot ulcer, picc line x 3, c sections x4 - ANESTHESIA Hx Anesthesia: Yes Hx Anesthesia Reactions: No Hx Malignant Hyperthermia: No Meds Allergies/Adverse Reactions: Allergies Allergy/AdvReac Type Severity Reaction Status Date / Time vancomycin Allergy RASH Verified 02/25/18 12:06 - Medications Medications: Current Medications Acetaminophen (Tylenol 325mg Tab) 650 mg PO Q6H PRN PRN Reason: Fever >100.4 F Albuterol Sulfate (Albuterol 0.083% Inhal Loly (2.5 Mg/3 Ml) Ud) 2.5 mg IH [id number] PRN PRN Reason: Shortness of Breath Alprazolam (Xanax) 0.5 mg PO Q12 [facility]; Protocol Last Admin: 08/11/18 09:47 Dose: 0.5 mg Atorvastatin Calcium (Lipitor) 10 mg PO HS [facility] Last Admin: 08/10/18 21:47 Dose: Not Given Dextrose (Dextrose 50% Inj) 0 ml IV STAT PRN; Protocol PRN Reason: Hypoglycemia Protocol Gemfibrozil (Lopid) 600 mg PO DAILY [facility] Last Admin: 08/11/18 09:47 Dose: 600 mg Heparin Sodium (Porcine) (Heparin) 5,000 units SC Q12 [facility]; Protocol Last Admin: 08/11/18 09:46 Dose: Not Given Dextrose (Dextrose 5% In Water 1000 Ml) 1,000 mls @ 0 mls/hr IV .Q0M PRN; Protocol PRN Reason: Hypoglycemia Protocol Piperacillin Sod/Tazobactam Sod (Zosyn 3.375 In Ns 100ml) 100 mls @ 25 mls/hr IVPB Q8 [facility]; Protocol Linezolid (Zyvox 600mg/300ml D5w) 600 mg in 300 mls @ 200 mls/hr IVPB Q12 [facility]; Protocol Stop: 08/11/18 23:29 Insulin Detemir (Levemir) 26 unit SC HS [facility] Insulin Human Lispro (Humalog) 9 units SC TID [facility] Last Admin: 08/11/18 18:08 Dose: Not Given Insulin Human Regular (Humulin R High) 0 units SC ACHS [facility]; Protocol Last Admin: 08/11/18 16:45 Dose: Not Given Non-Formulary Medication (Fluticasone/Vilanterol 200/25 [Breo Ellipta 200-25 Mcg Inh]) 1 puff IH DAILY [facility] Last Admin: 08/11/18 09:46 Dose: Not Given Oxycodone/Acetaminophen (Percocet 5/325 Mg Tab) 1 tab PO Q4H PRN PRN Reason: Pain, severe (8-10) Stop: 08/13/18 18:16 Last Admin: 08/11/18 18:40 Dose: 1 tab Pantoprazole Sodium (Protonix Ec Tab) 40 mg PO ACB [facility] Last Admin: 08/11/18 08:21 Dose: 40 mg Zolpidem Tartrate (Ambien) 5 mg PO [facility] Last Admin: 08/10/18 21:52 Dose: 5 mg Physical Exam - Constitutional Appears: Non-toxic, No Acute Distress - Head Exam Head Exam: ATRAUMATIC, NORMOCEPHALIC - Eye Exam Eye Exam: EOMI, PERRL Pupil Exam: NORMAL ACCOMODATION, PERRL - ENT Exam ENT Exam: Mucous Membranes Moist, Normal External Ear Exam, TM's Normal Bilaterally - Neck Exam Neck exam: Positive for: Full Rom, Normal Inspection - Respiratory Exam Respiratory Exam: Clear to Auscultation Bilateral, NORMAL BREATHING PATTERN. absent: Rales, Rhonchi, Wheezes - Cardiovascular Exam Cardiovascular Exam: REGULAR RHYTHM, RRR, +S1, +S2 - GI/Abdominal Exam GI & Abdominal Exam: Normal Bowel Sounds, Soft. absent: Distended, Tenderness - Extremities Exam Additional comments: 6 cm by 4 cm stage 3 wound on plantar surface of LLE Left 5th ray and 4th digit amputation Erythema surrounding wound No drainage +2/4 pulses - Neurological Exam Neurological exam: Alert, CN II-XII Intact, Oriented x3 - Psychiatric Exam Psychiatric exam: Normal Affect, Normal Mood - Skin Skin Exam: Intact, Normal Color Results - Vital Signs Recent Vital Signs: Last Vital Signs Temp 98 F 08/11/18 14:00 Pulse 79 08/11/18 14:00 Resp 18 08/11/18 14:00 BP 136/77 08/11/18 14:00 Pulse Ox 100 08/11/18 14:00 - Labs Result Diagrams: 08/11/18 04:20 08/11/18 04:20 Labs: Laboratory Results - last 24 hr 08/10/18 08/10/18 08/10/18 20:39 21:52 21:52 WBC RBC Hgb Hct MCV MCH MCHC RDW Plt Count MPV Gran % Lymph % (Auto) Jones % (Auto) Eos % (Auto) Baso % (Auto) Gran # Lymph # (Auto) Jones # (Auto) Eos # (Auto) Baso # (Auto) ESR 114 H Sodium Potassium Chloride Carbon Dioxide Anion Gap BUN Creatinine Est GFR ( Amer) Est GFR (Non-Af Amer) POC Glucose (mg/dL) 232 H Random Glucose Hemoglobin A1c Calcium Phosphorus Magnesium Total Bilirubin AST ALT Alkaline Phosphatase C-Reactive Protein 15.90 H Total Protein Albumin Globulin Albumin/Globulin Ratio 08/11/18 08/11/18 08/11/18 04:00 04:20 04:20 WBC 6.6 RBC 3.63 Hgb 10.5 L Hct 33.0 L MCV 90.9 MCH 28.9 MCHC 31.8 RDW 12.8 Plt Count 273 MPV 10.2 Gran % 81.4 H Lymph % (Auto) 8.2 L Jones % (Auto) 8.2 H Eos % (Auto) 2.0 Baso % (Auto) 0.2 Gran # 5.36 Lymph # (Auto) 0.5 L Jones # (Auto) 0.5 Eos # (Auto) 0.1 Baso # (Auto) 0.01 ESR Sodium 137 Potassium 4.7 Chloride 104 Carbon Dioxide 26 Anion Gap 12 BUN 21 Creatinine 1.2 Est GFR ( Amer) 57 Est GFR (Non-Af Amer) 47 POC Glucose (mg/dL) Random Glucose 401 H* Hemoglobin A1c 11.7 H Calcium 9.1 Phosphorus 4.2 Magnesium 2.1 Total Bilirubin 0.3 AST 13 L D ALT 18 Alkaline Phosphatase 129 H C-Reactive Protein Total Protein 7.0 Albumin 3.5 Globulin 3.5 Albumin/Globulin Ratio 1.0 L 08/11/18 08/11/18 08/11/18 06:00 11:07 16:01 WBC RBC Hgb Hct MCV MCH MCHC RDW Plt Count MPV Gran % Lymph % (Auto) Jones % (Auto) Eos % (Auto) Baso % (Auto) Gran # Lymph # (Auto) Jones # (Auto) Eos # (Auto) Baso # (Auto) ESR Sodium Potassium Chloride Carbon Dioxide Anion Gap BUN Creatinine Est GFR ( Amer) Est GFR (Non-Af Amer) POC Glucose (mg/dL) 343 H 143 H 138 H Random Glucose Hemoglobin A1c Calcium Phosphorus Magnesium Total Bilirubin AST ALT Alkaline Phosphatase C-Reactive Protein Total Protein Albumin Globulin Albumin/Globulin Ratio Assessment & Plan - Assessment and Plan (Free Text) Assessment: 52 yo female with left lower extremity pain on plantar service of her foot. History of E. coli and MRSA. Started on Zosyn and Zyvox due to Vancomycin allergies. Wound care as per Podiatry. Check ESR. Supportive care Thank you for allowing me to participate in the care of the patient, we will follow with you.
[2018-08-11] MEDS ORDERED: Insulin Detemir 100 units/ml Vial (Levemir) SC SCH (22:00)
[2018-08-11] MEDS ORDERED: Linezolid 600 mg in D5W 300 ml 600 MG/300 ML BAG IVPB SCH (22:00)
--- NOTE | 2018-08-11 22:11 | US ---
PROCEDURE: Lower extremity ROBERTO CARLOS exam HISTORY: Peripheral vascular disease with pain and ulceration. Diabetes. Previous smoker PHYSICIAN(S): Gerardo Law MD. FINDINGS: The resting ROBERTO CARLOS's are normal: right, 1.01and left, 1.10 The brachial systolic pressures are symmetric. The high thigh pressures and waveforms are relatively normal. The calf PVR waveforms augment normally. No significant gradients are noted across the thighs. The ankle and metatarsal waveforms are relatively normal and symmetric. No significant pressure gradients are noted across the lower legs. IMPRESSION: 1. Normal ROBERTO CARLOS and PVR examination at rest.
[2018-08-11] MEDS: Piperacillin/Tazobact 3.375 gm 100 ML IVPB SCH (22:31)
[2018-08-12 04:50] LABS: BASO # 0.02 K/mm3 (0.0-2.0); BASO % 0.5 % (0.0-3.0); EOS # 0.3 (0.0-0.7); EOS % 6.7 % (1.5-5.0); GRAN # 1.77 (1.4-6.5); GRAN % 45.5 % (50.0-68.0); HEMOGLOBIN 9.6 g/dL (12.0-16.0); LYMPH # 1.5 (1.2-3.4); LYMPH % 38.3 % (22.0-35.0); MEAN CELL VOLUME 90.4 fl (80.0-105.0); MEAN CORPUSCULAR HEMOGLOBIN 28.8 pg (25.0-35.0); MEAN CORPUSCULAR HGB CONC 31.9 g/dl (31.0-37.0); MEAN PLATELET VOLUME 9.9 fl (7.0-11.0); MONO # 0.4 (0.1-0.6); RBC 3.33 10^6/uL (3.5-6.1)
[2018-08-12 05:16] LABS: WHITE BLOOD COUNT 3.9 10^3/uL (4.5-11.0)
[2018-08-12] MEDS: Piperacillin/Tazobact 3.375 gm 100 ML IVPB SCH ×2 (05:48→15:00)
[2018-08-12 05:54] LABS: ALBUMIN 3.5 g/dL (3.0-4.8); ALT/SGPT 20 U/L (7-56); AST/SGOT 17 U/L (14-36); BLOOD UREA NITROGEN 26 mg/dL (7-21); GFR NON-AFRICAN AMERICAN 52
[2018-08-12] MEDS: Insulin Reg-HIGH-Coverage SC SCH ×4 (08:00→23:34)
[2018-08-12] MEDS: Pantoprazole 40 mg EC Tab PO SCH (09:55)
[2018-08-12] MEDS ORDERED: Linezolid 600 mg in D5W 300 ml 600 MG/300 ML BAG IVPB SCH ×2 (10:00→22:00)
[2018-08-12] MEDS: Insulin Lispro 1 UNITS/0.01 ML SC SCH (10:31)
[2018-08-12] MEDS: [UNRECOGNIZED DRUG - OTHER] IH SCH (10:32)
--- NOTE | 2018-08-12 11:11 | CP.PCM.PN ---
<Chrissie Johnevgeny - Last Filed: 08/12/18 11:08> Subjective - Date & Time of Evaluation Date of Evaluation: 08/12/18 Time of Evaluation: 11:08 - Subjective Subjective: Podiatry Consult Note for Dr. Singleton: 52 yo female patient with PMHx of, seen and evaluated for L plantar ulceration. Patient is seen resting comfortably, and states her chills have resolved. Patient denies any complaints of pain at this time. Patient denies any F/N/ V/SOB/chills Objective - Vital Signs/Intake and Output Vital Signs (last 24 hours): Temp Pulse Resp BP Pulse Ox 98.2 F 69 20 103/68 97 08/12/18 06:00 08/12/18 06:00 08/12/18 06:00 08/12/18 06:00 08/12/18 06:00 Intake and Output: 08/12/18 08/12/18 06:59 18:59 Intake Total 360 Balance 360 - Medications Medications: Current Medications Acetaminophen (Tylenol 325mg Tab) 650 mg PO Q6H PRN PRN Reason: Fever >100.4 F Albuterol Sulfate (Albuterol 0.083% Inhal Loly (2.5 Mg/3 Ml) Ud) 2.5 mg IH [id number] PRN PRN Reason: Shortness of Breath Alprazolam (Xanax) 0.5 mg PO Q12 [facility]; Protocol Last Admin: 08/12/18 10:28 Dose: 0.5 mg Atorvastatin Calcium (Lipitor) 10 mg PO HS [facility] Last Admin: 08/11/18 22:33 Dose: 10 mg Dextrose (Dextrose 50% Inj) 0 ml IV STAT PRN; Protocol PRN Reason: Hypoglycemia Protocol Gemfibrozil (Lopid) 600 mg PO DAILY [facility] Last Admin: 08/12/18 10:27 Dose: 600 mg Heparin Sodium (Porcine) (Heparin) 5,000 units SC Q12 [facility]; Protocol Last Admin: 08/12/18 10:28 Dose: 5,000 units Dextrose (Dextrose 5% In Water 1000 Ml) 1,000 mls @ 0 mls/hr IV .Q0M PRN; Protocol PRN Reason: Hypoglycemia Protocol Piperacillin Sod/Tazobactam Sod (Zosyn 3.375 In Ns 100ml) 100 mls @ 25 mls/hr IVPB Q8 [facility]; Protocol Last Admin: 08/12/18 05:48 Dose: 25 mls/hr Linezolid (Zyvox 600mg/300ml D5w) 600 mg in 300 mls @ 200 mls/hr IVPB Q12 [facility]; Protocol Stop: 08/12/18 11:29 Last Admin: 08/12/18 10:28 Dose: 200 mls/hr Insulin Detemir (Levemir) 26 unit SC HS [facility] Last Admin: 08/11/18 22:46 Dose: 26 unit Insulin Human Lispro (Humalog) 9 units SC TID [facility] Last Admin: 08/12/18 10:31 Dose: 9 u Insulin Human Regular (Humulin R High) 0 units SC ACHS [facility]; Protocol Last Admin: 08/12/18 08:00 Dose: 4 u Non-Formulary Medication (Fluticasone/Vilanterol 200/25 [Breo Ellipta 200-25 Mcg Inh]) 1 puff IH DAILY [facility] Last Admin: 08/12/18 10:32 Dose: Not Given Oxycodone/Acetaminophen (Percocet 5/325 Mg Tab) 1 tab PO Q4H PRN PRN Reason: Pain, severe (8-10) Stop: 08/13/18 18:16 Last Admin: 08/11/18 18:40 Dose: 1 tab Pantoprazole Sodium (Protonix Ec Tab) 40 mg PO ACB [facility] Last Admin: 08/12/18 09:55 Dose: 40 mg Zolpidem Tartrate (Ambien) 5 mg PO [facility] Last Admin: 08/11/18 22:34 Dose: 5 mg - Labs Labs: 08/12/18 04:15 08/12/18 04:15 PT 10.8 SECONDS (9.4-12.5) 08/10/18 14:30 INR 0.95 08/10/18 14:30 APTT 40.8 Seconds (25.1-36.5) H 08/10/18 14:30 - Constitutional Appears: Well, Non-toxic, No Acute Distress - Head Exam Head Exam: ATRAUMATIC, NORMOCEPHALIC - Extremities Exam Additional comments: Left Lower Extremity Exam: Sanguinous Strike-through present to dressing Vasc: DP and PT pulses 1/4 bilaterally, capillary refill <3 seconds to all remaining digits, temperature gradient warm to warm, no edema present Derm: 6 cm x 4 cm x 1.2 cm wound present on the lateral aspect of the left plantar midfoot, no drainage, undermining at the proximal aspect, negative probe to bone, no streaking or periwound erythema present, no malodor Neuro: Gross sensation intact, diminished protective sensation Ortho: 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 Plan: Patient seen and evaluated Chart, labs and vitals were reviewed- afebrile, absent leukocytosis ESR- 88 () from 114 upon arrival, CRP Pending L foot x-rays taken: Post operative changes. Plantar soft tissue ulcer Continue IV Abx as per Infectious Disease Wound Culture- Gram Neg Rods, Gram Positive Cocci Wound cleased with saline and dressed with xeroform, DSD Podiatry will continue to follow the patient while in house <Dmitriy Singleton - Last Filed: 08/13/18 09:35> Objective - Vital Signs/Intake and Output Vital Signs (last 24 hours): Temp Pulse Resp BP Pulse Ox 98.2 F 66 20 107/73 99 08/13/18 06:00 08/13/18 06:00 08/13/18 06:00 08/13/18 06:00 08/13/18 06:00 Intake and Output: 08/13/18 08/13/18 06:59 18:59 Intake Total 800 Balance 800 - Medications Medications: Current Medications Acetaminophen (Tylenol 325mg Tab) 650 mg PO Q6H PRN PRN Reason: Fever >100.4 F Albuterol Sulfate (Albuterol 0.083% Inhal Loly (2.5 Mg/3 Ml) Ud) 2.5 mg IH [id number] PRN PRN Reason: Shortness of Breath Alprazolam (Xanax) 0.5 mg PO Q12 [facility]; Protocol Last Admin: 08/12/18 22:51 Dose: 0.5 mg Atorvastatin Calcium (Lipitor) 10 mg PO HS [facility] Last Admin: 08/11/18 22:33 Dose: 10 mg Dextrose (Dextrose 50% Inj) 0 ml IV STAT PRN; Protocol PRN Reason: Hypoglycemia Protocol Gemfibrozil (Lopid) 600 mg PO DAILY [facility] Last Admin: 08/12/18 10:27 Dose: 600 mg Heparin Sodium (Porcine) (Heparin) 5,000 units SC Q12 [facility]; Protocol Last Admin: 08/12/18 22:50 Dose: Not Given Dextrose (Dextrose 5% In Water 1000 Ml) 1,000 mls @ 0 mls/hr IV .Q0M PRN; Protocol PRN Reason: Hypoglycemia Protocol Piperacillin Sod/Tazobactam Sod (Zosyn 3.375 In Ns 100ml) 100 mls @ 25 mls/hr IVPB Q8 [facility]; Protocol Last Admin: 08/13/18 04:59 Dose: 25 mls/hr Insulin Human Lispro (Humalog) 26 units SC BID [facility] Insulin Human Regular (Humulin R High) 0 units SC ACHS [facility]; Protocol Last Admin: 08/13/18 08:19 Dose: 10 u Non-Formulary Medication (Fluticasone/Vilanterol 200/25 [Breo Ellipta 200-25 Mcg Inh]) 1 puff IH DAILY [facility] Last Admin: 08/12/18 10:32 Dose: Not Given Oxycodone/Acetaminophen (Percocet 5/325 Mg Tab) 1 tab PO Q4H PRN PRN Reason: Pain, severe (8-10) Stop: 08/13/18 18:16 Last Admin: 08/12/18 21:20 Dose: 1 tab Pantoprazole Sodium (Protonix Ec Tab) 40 mg PO ACB [facility] Last Admin: 08/13/18 08:19 Dose: 40 mg Zolpidem Tartrate (Ambien) 5 mg PO HS [facility] Last Admin: 08/12/18 22:50 Dose: 5 mg - Labs Labs: 08/13/18 05:30 08/13/18 05:30 PT 10.8 SECONDS (9.4-12.5) 08/10/18 14:30 INR 0.95 08/10/18 14:30 APTT 40.8 Seconds (25.1-36.5) H 08/10/18 14:30 Assessment and Plan - Assessment and Plan (Free Text) Plan: patient seen at bedside . Patient has history of Om diagnosed by MRI which she declined iv antibiotics by refusing sub acute care and amd out patient infusion . She was treated with 6 weeks of oral Cipro . Agree with a darrin findings and apprecite consult I&D Dr Oakley /Dr Dmitriy Singleton 08/12/18
--- NOTE | 2018-08-12 14:10 | CP.PCM.PN ---
Subjective - Date & Time of Evaluation Date of Evaluation: 08/12/18 Time of Evaluation: 13:30 - Subjective Subjective: Infectious Disease Follow Up: August 12, 2018 52 year old female with past medical history of T2DM, HLD, asthma, migraines presenting with chief complaint of left lower extremity pain due to a wound on the plantar surface of her foot. She states this wound has been present for the past two years and she has chronic pain because of this. However the pain has worsened in severity over the past several months. Patient was in [place] recently for management of this wound and was unable to continue recommended antibiotics on discharge due to lack of insurance coverage. She has been taking ciprofloxacin for 2 days which was prescribed by Dr. Singleton. Pain is constant and described as sharp and stabbing in character. She rates the pain +10/10 in severity. She states keeping the foot wrapped and elevating it helps alleviate the pain. She also admits to chills. Denies fevers, nausea, vomiting, chest pain , shortness of breath, abdominal pain, dysuria. Cultures showing Gram negative rods and gram positive cocci. E. Coli and MRSA in June 2018 cultures. Current cultures growing the same organisms of E. Coli and MRSA. The patient has a Vancomycin allergy. Objective - Vital Signs/Intake and Output Vital Signs (last 24 hours): Temp Pulse Resp BP Pulse Ox 98.2 F 69 20 103/68 97 08/12/18 06:00 08/12/18 06:00 08/12/18 06:00 08/12/18 06:00 08/12/18 06:00 Intake and Output: 08/12/18 08/12/18 06:59 18:59 Intake Total 360 Balance 360 - Medications Medications: Current Medications Acetaminophen (Tylenol 325mg Tab) 650 mg PO Q6H PRN PRN Reason: Fever >100.4 F Albuterol Sulfate (Albuterol 0.083% Inhal Loly (2.5 Mg/3 Ml) Ud) 2.5 mg IH [id number] PRN PRN Reason: Shortness of Breath Alprazolam (Xanax) 0.5 mg PO Q12 [facility]; Protocol Last Admin: 08/12/18 10:28 Dose: 0.5 mg Atorvastatin Calcium (Lipitor) 10 mg PO HS [facility] Last Admin: 08/11/18 22:33 Dose: 10 mg Dextrose (Dextrose 50% Inj) 0 ml IV STAT PRN; Protocol PRN Reason: Hypoglycemia Protocol Gemfibrozil (Lopid) 600 mg PO DAILY [facility] Last Admin: 08/12/18 10:27 Dose: 600 mg Heparin Sodium (Porcine) (Heparin) 5,000 units SC Q12 [facility]; Protocol Last Admin: 08/12/18 10:28 Dose: 5,000 units Dextrose (Dextrose 5% In Water 1000 Ml) 1,000 mls @ 0 mls/hr IV .Q0M PRN; Protocol PRN Reason: Hypoglycemia Protocol Piperacillin Sod/Tazobactam Sod (Zosyn 3.375 In Ns 100ml) 100 mls @ 25 mls/hr IVPB Q8 [facility]; Protocol Last Admin: 08/12/18 05:48 Dose: 25 mls/hr Insulin Human Regular (Humulin R High) 0 units SC ACHS [facility]; Protocol Last Admin: 08/12/18 13:33 Dose: 10 u Non-Formulary Medication (Fluticasone/Vilanterol 200/25 [Breo Ellipta 200-25 Mcg Inh]) 1 puff IH DAILY [facility] Last Admin: 08/12/18 10:32 Dose: Not Given Oxycodone/Acetaminophen (Percocet 5/325 Mg Tab) 1 tab PO Q4H PRN PRN Reason: Pain, severe (8-10) Stop: 08/13/18 18:16 Last Admin: 08/11/18 18:40 Dose: 1 tab Pantoprazole Sodium (Protonix Ec Tab) 40 mg PO ACB [facility] Last Admin: 08/12/18 09:55 Dose: 40 mg Zolpidem Tartrate (Ambien) 5 mg PO HS [facility] Last Admin: 08/11/18 22:34 Dose: 5 mg - Labs Labs: 08/12/18 04:15 08/12/18 04:15 PT 10.8 SECONDS (9.4-12.5) 08/10/18 14:30 INR 0.95 08/10/18 14:30 APTT 40.8 Seconds (25.1-36.5) H 08/10/18 14:30 - Constitutional Appears: Non-toxic, No Acute Distress, Chronically Ill - Head Exam Head Exam: ATRAUMATIC, NORMOCEPHALIC - Eye Exam Eye Exam: EOMI, PERRL Pupil Exam: NORMAL ACCOMODATION, PERRL - ENT Exam ENT Exam: Mucous Membranes Moist, Normal External Ear Exam, TM's Normal Bilaterally - Neck Exam Neck Exam: Full ROM, Normal Inspection - Respiratory Exam Respiratory Exam: Clear to Ausculation Bilateral, NORMAL BREATHING PATTERN. absent: Rales, Rhonchi, Wheezes - Cardiovascular Exam Cardiovascular Exam: REGULAR RHYTHM, RRR, +S1, +S2 - GI/Abdominal Exam GI & Abdominal Exam: Soft, Normal Bowel Sounds. absent: Distended, Tenderness - Extremities Exam Additional comments: 6 cm by 4 cm stage 3 wound on plantar surface of LLE Left 5th ray and 4th digit amputation Erythema surrounding wound No drainage +2/4 pulses - Neurological Exam Neurological Exam: Alert, Awake, CN II-XII Intact, Oriented x3 - Psychiatric Exam Psychiatric exam: Normal Affect, Normal Mood - Skin Skin Exam: Intact, Normal Color Assessment and Plan - Assessment and Plan (Free Text) Assessment: 52 yo female with left lower extremity pain on plantar service of her foot. History of E. coli and MRSA. Started on Zosyn and Zyvox due to Vancomycin allergies. Wound care as per Podiatry. Check ESR. Cultures again showing E. coli and MRSA. Patient states that she is feeling better now. ESR of 111 and now to 88. She will need a minimum of 2 weeks equivalent of IV antibiotic unless Podiatry feels it is osteomyelitis. If podiatry feels the patient has an active osteomyelitis, the patient would need a 6 week equivalent. Supportive care Thank you for allowing me to participate in the care of the patient, we will follow with you.
[2018-08-12] MEDS: Oxycodone/Acetaminophen 5/325 mg Tab PO PRN ×2 (14:28→21:20)
--- NOTE | 2018-08-12 15:18 | CP.PCM.PN ---
Subjective - Date & Time of Evaluation Date of Evaluation: 08/12/18 Time of Evaluation: 07:30 - Subjective Subjective: Resident Progress Note for Hospitalist Service Patient examined at bedside. States that her foot pain is well managed after debridement. Rates the severity level +0/10. Denies fever, chills, chest pain, shortness of breath, abdominal pain, dysuria. Objective - Vital Signs/Intake and Output Vital Signs (last 24 hours): Temp Pulse Resp BP Pulse Ox 97.9 F 69 18 158/78 H 100 08/12/18 14:00 08/12/18 14:00 08/12/18 14:00 08/12/18 14:00 08/12/18 14:00 Intake and Output: 08/12/18 08/12/18 06:59 18:59 Intake Total 360 Balance 360 - Medications Medications: Current Medications Acetaminophen (Tylenol 325mg Tab) 650 mg PO Q6H PRN PRN Reason: Fever >100.4 F Albuterol Sulfate (Albuterol 0.083% Inhal Loly (2.5 Mg/3 Ml) Ud) 2.5 mg IH Q4 [facility] PRN PRN Reason: Shortness of Breath Alprazolam (Xanax) 0.5 mg PO Q12 [facility]; Protocol Last Admin: 08/12/18 10:28 Dose: 0.5 mg Atorvastatin Calcium (Lipitor) 10 mg PO HS [facility] Last Admin: 08/11/18 22:33 Dose: 10 mg Dextrose (Dextrose 50% Inj) 0 ml IV STAT PRN; Protocol PRN Reason: Hypoglycemia Protocol Gemfibrozil (Lopid) 600 mg PO DAILY [facility] Last Admin: 08/12/18 10:27 Dose: 600 mg Heparin Sodium (Porcine) (Heparin) 5,000 units SC Q12 [facility]; Protocol Last Admin: 08/12/18 10:28 Dose: 5,000 units Dextrose (Dextrose 5% In Water 1000 Ml) 1,000 mls @ 0 mls/hr IV .Q0M PRN; Protocol PRN Reason: Hypoglycemia Protocol Piperacillin Sod/Tazobactam Sod (Zosyn 3.375 In Ns 100ml) 100 mls @ 25 mls/hr IVPB Q8 [facility]; Protocol Last Admin: 08/12/18 05:48 Dose: 25 mls/hr Insulin Human Regular (Humulin R High) 0 units SC ACHS [facility]; Protocol Last Admin: 08/12/18 13:33 Dose: 10 u Non-Formulary Medication (Fluticasone/Vilanterol 200/25 [Breo Ellipta 200-25 Mcg Inh]) 1 puff IH DAILY [facility] Last Admin: 08/12/18 10:32 Dose: Not Given Oxycodone/Acetaminophen (Percocet 5/325 Mg Tab) 1 tab PO Q4H PRN PRN Reason: Pain, severe (8-10) Stop: 08/13/18 18:16 Last Admin: 08/12/18 14:28 Dose: 1 tab Pantoprazole Sodium (Protonix Ec Tab) 40 mg PO ACB [facility] Last Admin: 08/12/18 09:55 Dose: 40 mg Zolpidem Tartrate (Ambien) 5 mg PO HS [facility] Last Admin: 08/11/18 22:34 Dose: 5 mg - Labs Labs: 08/12/18 04:15 08/12/18 04:15 PT 10.8 SECONDS (9.4-12.5) 08/10/18 14:30 INR 0.95 08/10/18 14:30 APTT 40.8 Seconds (25.1-36.5) H 08/10/18 14:30 - Additional Findings Additional findings: - Constitutional Appears: Non-toxic, No Acute Distress - Head Exam Head Exam: ATRAUMATIC, NORMOCEPHALIC - Eye Exam Eye Exam: EOMI, Normal appearance - ENT Exam ENT Exam: Mucous Membranes Moist, Normal Exam - Neck Exam Neck exam: Positive for: Normal Inspection. Negative for: Lymphadenopathy, Tenderness - Respiratory Exam Respiratory Exam: Clear to Auscultation Bilateral, NORMAL BREATHING PATTERN. absent: Rales, Rhonchi, Wheezes, Respiratory Distress - Cardiovascular Exam Cardiovascular Exam: REGULAR RHYTHM, +S1, +S2 - GI/Abdominal Exam GI & Abdominal Exam: Normal Bowel Sounds, Soft. absent: Tenderness - Extremities Exam Extremities exam: Negative for: pedal edema Additional comments: 6 cm by 4 cm stage 3 wound on plantar surface of LLE Left 5th ray and 4th digit amputation Erythema surrounding wound No drainage +1/4 pulses - Neurological Exam Neurological exam: Alert, CN II-XII Intact, Oriented x3 - Skin Skin Exam: Intact, Normal Color, Warm Assessment and Plan - Assessment and Plan (Free Text) Assessment: Patient is a 52 year old female with past medical history of T2DM, HLD, asthma, migraines presenting with chief complaint of left lower extremity pain due to a wound on the plantar surface of her foot. Plan: LLE wound - s/p wound debridement - Foot x-ray shows soft tissue defect on plantar surface, no adjacent bony destruction to suggest osteomyelitis - ESR 114, CRP 15.90 - Afebrile, no leukocytosis - Zosyn 3.375 gm IV Q8H - Zyvox 600 mg IV Q12 - NS @ 100 ccs/hr - Percocet 1 tab Q4H PRN - Followup wound and blood cultures - Podiatry consulted. Appreciate recs. - ID consulted. Appreciate recs. - PT eval T2DM - Hgba1c 11.7 - Humalog 26 units SC BID - ISS HLD - Continue Lipitor 10 mg PO HS, Lopid 600 mg PO daily Asthma - Continue albuterol Case discussed with attending Dr. Padmini Claros PGY-1
[2018-08-13] MEDS: Piperacillin/Tazobact 3.375 gm 100 ML IVPB SCH ×4 (00:47→22:02)
[2018-08-13 06:58] LABS: BASO # 0.05 K/mm3 (0.0-2.0); BASO % 1.2 % (0.0-3.0); EOS # 0.3 (0.0-0.7); EOS % 6.4 % (1.5-5.0); GRAN # 1.82 (1.4-6.5); GRAN % 44.8 % (50.0-68.0); HEMOGLOBIN 9.9 g/dL (12.0-16.0); LYMPH # 1.5 (1.2-3.4); LYMPH % 36.1 % (22.0-35.0); MEAN CELL VOLUME 89.9 fl (80.0-105.0); MEAN CORPUSCULAR HEMOGLOBIN 28.4 pg (25.0-35.0); MEAN CORPUSCULAR HGB CONC 31.6 g/dl (31.0-37.0); MEAN PLATELET VOLUME 10.3 fl (7.0-11.0); MONO # 0.5 (0.1-0.6); MONO % 11.5 % (1.0-6.0); RBC 3.48 10^6/uL (3.5-6.1); RED CELL DISTRIBUTION WIDTH 12.9 % (11.5-14.5); WHITE BLOOD COUNT 4.1 10^3/uL (4.5-11.0)
[2018-08-13 07:27] LABS: ALBUMIN 3.5 g/dL (3.0-4.8); ALT/SGPT 17 U/L (7-56); AST/SGOT 20 U/L (14-36); BLOOD UREA NITROGEN 26 mg/dL (7-21); CALCIUM 8.9 mg/dL (8.4-10.5); GFR NON-AFRICAN AMERICAN 52
[2018-08-13] MEDS: Insulin Reg-HIGH-Coverage SC SCH (08:19)
[2018-08-13] MEDS: Pantoprazole 40 mg EC Tab PO SCH (08:19)
[2018-08-13] MEDS ORDERED: Insulin Lispro 1 UNITS/0.01 ML SC SCH (10:00)
[2018-08-13] MEDS: [UNRECOGNIZED DRUG - OTHER] IH SCH (10:43)
[2018-08-13] MEDS: Oxycodone/Acetaminophen 5/325 mg Tab PO PRN ×2 (10:50→16:03)
[2018-08-13] MEDS ORDERED: Insulin Reg-MEDIUM-Coverage SC SCH (11:30)
--- NOTE | 2018-08-13 12:21 | CP.PCM.PN ---
<Valentin Rojas - Last Filed: 08/13/18 13:24> Subjective - Date & Time of Evaluation Date of Evaluation: 08/13/18 Time of Evaluation: 07:45 - Subjective Subjective: Valentin Rojas PGY-1 Progress Note for Hospitalist Service Patient seen and evaluated at bedside. No acute events reported overnight. Patient denies foot pain, headaches, chest pain, palpitations, blurry vision. Lunch fasting sugars were in 50's. Objective - Vital Signs/Intake and Output Vital Signs (last 24 hours): Temp Pulse Resp BP Pulse Ox 98.2 F 66 20 107/73 99 08/13/18 06:00 08/13/18 06:00 08/13/18 06:00 08/13/18 06:00 08/13/18 06:00 Intake and Output: 08/13/18 08/13/18 06:59 18:59 Intake Total 800 Balance 800 - Medications Medications: Current Medications Acetaminophen (Tylenol 325mg Tab) 650 mg PO Q6H PRN PRN Reason: Fever >100.4 F Albuterol Sulfate (Albuterol 0.083% Inhal Loly (2.5 Mg/3 Ml) Ud) 2.5 mg IH [id number] PRN PRN Reason: Shortness of Breath Alprazolam (Xanax) 0.5 mg PO Q12 [facility]; Protocol Last Admin: 08/13/18 10:41 Dose: 0.5 mg Atorvastatin Calcium (Lipitor) 10 mg PO HS [facility] Last Admin: 08/11/18 22:33 Dose: 10 mg Dextrose (Dextrose 50% Inj) 0 ml IV STAT PRN; Protocol PRN Reason: Hypoglycemia Protocol Gemfibrozil (Lopid) 600 mg PO DAILY [facility] Last Admin: 08/13/18 10:41 Dose: 600 mg Heparin Sodium (Porcine) (Heparin) 5,000 units SC Q12 [facility]; Protocol Last Admin: 08/13/18 10:41 Dose: 5,000 units Dextrose (Dextrose 5% In Water 1000 Ml) 1,000 mls @ 0 mls/hr IV .Q0M PRN; Protocol PRN Reason: Hypoglycemia Protocol Piperacillin Sod/Tazobactam Sod (Zosyn 3.375 In Ns 100ml) 100 mls @ 25 mls/hr IVPB Q8 [facility]; Protocol Last Admin: 08/13/18 04:59 Dose: 25 mls/hr Insulin Human Regular (Humulin R Med) 0 units SC ACHS [facility]; Protocol Non-Formulary Medication (Fluticasone/Vilanterol 200/25 [Breo Ellipta 200-25 Mcg Inh]) 1 puff IH DAILY [facility] Last Admin: 08/13/18 10:43 Dose: Not Given Oxycodone/Acetaminophen (Percocet 5/325 Mg Tab) 1 tab PO Q4H PRN PRN Reason: Pain, severe (8-10) Stop: 08/13/18 18:16 Last Admin: 08/13/18 10:50 Dose: 1 tab Pantoprazole Sodium (Protonix Ec Tab) 40 mg PO ACB [facility] Last Admin: 08/13/18 08:19 Dose: 40 mg Zolpidem Tartrate (Ambien) 5 mg PO HS [facility] Last Admin: 08/12/18 22:50 Dose: 5 mg - Labs Labs: 08/13/18 05:30 08/13/18 05:30 PT 10.8 SECONDS (9.4-12.5) 08/10/18 14:30 INR 0.95 08/10/18 14:30 APTT 40.8 Seconds (25.1-36.5) H 08/10/18 14:30 - Additional Findings Additional findings: - Constitutional Appears: Non-toxic, No Acute Distress - Head Exam Head Exam: ATRAUMATIC, NORMOCEPHALIC - Eye Exam Eye Exam: EOMI, Normal appearance - ENT Exam ENT Exam: Mucous Membranes Moist, Normal Exam - Neck Exam Neck exam: Positive for: Normal Inspection. Negative for: Lymphadenopathy, Tenderness - Respiratory Exam Respiratory Exam: Clear to Auscultation Bilateral, NORMAL BREATHING PATTERN. absent: Rales, Rhonchi, Wheezes, Respiratory Distress - Cardiovascular Exam Cardiovascular Exam: REGULAR RHYTHM, +S1, +S2 - GI/Abdominal Exam GI & Abdominal Exam: Normal Bowel Sounds, Soft. absent: Tenderness - Extremities Exam Extremities exam: Negative for: pedal edema Additional comments: 6 cm by 4 cm stage 3 wound on plantar surface of LLE. 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 Plan: LLE wound - s/p wound debridement - Foot x-ray shows soft tissue defect on plantar surface, no adjacent bony destruction to suggest osteomyelitis - ESR 114, CRP 15.90 - Afebrile, no leukocytosis - Zosyn 3.375 gm IV Q8H - Zyvox 600 mg IV Q12 - NS @ 100 ccs/hr - Percocet 1 tab Q4H PRN - Final wound culture + for E coli and MRSA - Prelim blood cultures neg x2 after 48 hours - Podiatry consulted Dr. Singleton: Patient has history of OM diagnosed by MRI which she declined iv antibiotics by refusing sub acute care and out-patient infusion. - ID consulted- Dr. Oakley: patient will need a minimum of 2 weeks equivalent of IV antibiotic unless Podiatry feels it is osteomyelitis. If podiatry feels the patient has an active osteomyelitis, the patient would need a 6 week equivalent. Awaiting ID approval of continued Zyvox. L foot x-rays taken: Post operative changes. Plantar soft tissue ulcer - PT eval T2DM - Hgba1c 11.7 - Humalog moderate ISS - Humulin 70/30 30 mg BID held due to low FS at lunchtime. Will consider restarting tomorrow AM depending on POC glucose levels rest of day HLD - Continue Lipitor 10 mg PO HS, Lopid 600 mg PO daily Asthma - Continue albuterol DVT ppx: Heparin SC Patient seen, case reviewed and plan approved by Dr. Naylor. Valentin Rojas, PGY-1 <Maricarmen Naylor - Last Filed: 08/13/18 15:00> Objective - Vital Signs/Intake and Output Vital Signs (last 24 hours): Temp Pulse Resp BP Pulse Ox 98.2 F 66 20 107/73 99 08/13/18 06:00 08/13/18 06:00 08/13/18 06:00 08/13/18 06:00 08/13/18 06:00 Intake and Output: 08/13/18 08/13/18 06:59 18:59 Intake Total 800 Balance 800 - Medications Medications: Current Medications Albuterol Sulfate (Albuterol 0.083% Inhal Loly (2.5 Mg/3 Ml) Ud) 2.5 mg IH Q4H RESP PRN PRN Reason: Shortness of Breath Alprazolam (Xanax) 0.5 mg PO Q12 [facility]; Protocol Last Admin: 08/13/18 10:41 Dose: 0.5 mg Atorvastatin Calcium (Lipitor) 10 mg PO HS [facility] Last Admin: 08/11/18 22:33 Dose: 10 mg Dextrose (Dextrose 50% Inj) 0 ml IV STAT PRN; Protocol PRN Reason: Hypoglycemia Protocol Gemfibrozil (Lopid) 600 mg PO DAILY [facility] Last Admin: 08/13/18 10:41 Dose: 600 mg Heparin Sodium (Porcine) (Heparin) 5,000 units SC Q12 [facility]; Protocol Last Admin: 08/13/18 10:41 Dose: 5,000 units Dextrose (Dextrose 5% In Water 1000 Ml) 1,000 mls @ 0 mls/hr IV .Q0M PRN; Protocol PRN Reason: Hypoglycemia Protocol Piperacillin Sod/Tazobactam Sod (Zosyn 3.375 In Ns 100ml) 100 mls @ 25 mls/hr IVPB Q8 [facility]; Protocol Last Admin: 08/13/18 04:59 Dose: 25 mls/hr Linezolid (Zyvox 600mg/300ml D5w) 600 mg in 300 mls @ 200 mls/hr IVPB Q12 [facility]; Protocol Stop: 08/13/18 15:14 Last Admin: 08/13/18 14:16 Dose: 200 mls/hr Insulin Human Lispro (Humalog Med) 0 units SC ACHS [facility]; Protocol Non-Formulary Medication (Fluticasone/Vilanterol 200/25 [Breo Ellipta 200-25 Mcg Inh]) 1 puff IH DAILY [facility] Last Admin: 08/13/18 10:43 Dose: Not Given Oxycodone/Acetaminophen (Percocet 5/325 Mg Tab) 1 tab PO Q4H PRN PRN Reason: Pain, severe (8-10) Stop: 08/13/18 18:16 Last Admin: 08/13/18 10:50 Dose: 1 tab Pantoprazole Sodium (Protonix Ec Tab) 40 mg PO ACB [facility] Last Admin: 08/13/18 08:19 Dose: 40 mg Zolpidem Tartrate (Ambien) 5 mg PO HS [facility] Last Admin: 08/12/18 22:50 Dose: 5 mg - Labs Labs: 08/13/18 05:30 08/13/18 05:30 PT 10.8 SECONDS (9.4-12.5) 08/10/18 14:30 INR 0.95 08/10/18 14:30 APTT 40.8 Seconds (25.1-36.5) H 08/10/18 14:30 Attending/Attestation - Attestation I have personally seen and examined this patient.: Yes I have fully participated in the care of the patient.: Yes I have reviewed all pertinent clinical information, including history, physical exam and plan: Yes Notes (Text): 08/13/18 14:52 52 year old female with past medical history of diabetes and dyslipidemia who presented with complaint of left foot pain and wound. She was seen by podiatry and is s/p debridement. Wound culture is growing E Coli and MRSA. She is on on zosyn and zyvox (has vancomycin allergy). ID and podiatry are following. Patient may need at least 2-6 weeks of antibiotics as per ID. Patient is on insulin ss and humulin 70/30 bid for diabetes. Will hold pm dose due to hypoglycemia this afternoon. Maricarmen Naylor MD Hospitalist.
--- NOTE | 2018-08-13 12:46 | CP.PCM.PN ---
Subjective - Date & Time of Evaluation Date of Evaluation: 08/13/18 Time of Evaluation: 12:00 - Subjective Subjective: Infectious Disease Follow Up: August 13, 2018 52 year old female with past medical history of T2DM, HLD, asthma, migraines presenting with chief complaint of left lower extremity pain due to a wound on the plantar surface of her foot. She states this wound has been present for the past two years and she has chronic pain because of this. However the pain has worsened in severity over the past several months. Patient was in [place] recently for management of this wound and was unable to continue recommended antibiotics on discharge due to lack of insurance coverage. She has been taking ciprofloxacin for 2 days which was prescribed by Dr. Singleton. Pain is constant and described as sharp and stabbing in character. She rates the pain +10/10 in severity. She states keeping the foot wrapped and elevating it helps alleviate the pain. She also admits to chills. Denies fevers, nausea, vomiting, chest pain , shortness of breath, abdominal pain, dysuria. Cultures showing Gram negative rods and gram positive cocci. E. Coli and MRSA in June 2018 cultures. Current cultures growing the same organisms of E. Coli and MRSA. The patient has a Vancomycin allergy. Patient is stating that she is homeless. Clinically she is not stating any pain or distress. She appears comfortable. Objective - Vital Signs/Intake and Output Vital Signs (last 24 hours): Temp Pulse Resp BP Pulse Ox 98.2 F 66 20 107/73 99 08/13/18 06:00 08/13/18 06:00 08/13/18 06:00 08/13/18 06:00 08/13/18 06:00 Intake and Output: 08/13/18 08/13/18 06:59 18:59 Intake Total 800 Balance 800 - Medications Medications: Current Medications Acetaminophen (Tylenol 325mg Tab) 650 mg PO Q6H PRN PRN Reason: Fever >100.4 F Albuterol Sulfate (Albuterol 0.083% Inhal Loly (2.5 Mg/3 Ml) Ud) 2.5 mg IH [id number] PRN PRN Reason: Shortness of Breath Alprazolam (Xanax) 0.5 mg PO Q12 [facility]; Protocol Last Admin: 08/13/18 10:41 Dose: 0.5 mg Atorvastatin Calcium (Lipitor) 10 mg PO HS [facility] Last Admin: 08/11/18 22:33 Dose: 10 mg Dextrose (Dextrose 50% Inj) 0 ml IV STAT PRN; Protocol PRN Reason: Hypoglycemia Protocol Gemfibrozil (Lopid) 600 mg PO DAILY [facility] Last Admin: 08/13/18 10:41 Dose: 600 mg Heparin Sodium (Porcine) (Heparin) 5,000 units SC Q12 [facility]; Protocol Last Admin: 08/13/18 10:41 Dose: 5,000 units Dextrose (Dextrose 5% In Water 1000 Ml) 1,000 mls @ 0 mls/hr IV .Q0M PRN; Protocol PRN Reason: Hypoglycemia Protocol Piperacillin Sod/Tazobactam Sod (Zosyn 3.375 In Ns 100ml) 100 mls @ 25 mls/hr IVPB Q8 [facility]; Protocol Last Admin: 08/13/18 04:59 Dose: 25 mls/hr Insulin Human Lispro (Humalog Med) 0 units SC ACHS [facility]; Protocol Non-Formulary Medication (Fluticasone/Vilanterol 200/25 [Breo Ellipta 200-25 Mcg Inh]) 1 puff IH DAILY [facility] Last Admin: 08/13/18 10:43 Dose: Not Given Oxycodone/Acetaminophen (Percocet 5/325 Mg Tab) 1 tab PO Q4H PRN PRN Reason: Pain, severe (8-10) Stop: 08/13/18 18:16 Last Admin: 08/13/18 10:50 Dose: 1 tab Pantoprazole Sodium (Protonix Ec Tab) 40 mg PO ACB [facility] Last Admin: 08/13/18 08:19 Dose: 40 mg Zolpidem Tartrate (Ambien) 5 mg PO HS [facility] Last Admin: 08/12/18 22:50 Dose: 5 mg - Labs Labs: 08/13/18 05:30 08/13/18 05:30 PT 10.8 SECONDS (9.4-12.5) 08/10/18 14:30 INR 0.95 08/10/18 14:30 APTT 40.8 Seconds (25.1-36.5) H 08/10/18 14:30 - Constitutional Appears: Non-toxic, No Acute Distress, Chronically Ill - Head Exam Head Exam: ATRAUMATIC, NORMOCEPHALIC - Eye Exam Eye Exam: EOMI, PERRL Pupil Exam: NORMAL ACCOMODATION, PERRL - ENT Exam ENT Exam: Mucous Membranes Moist, Normal External Ear Exam, TM's Normal Bilaterally - Neck Exam Neck Exam: Full ROM, Normal Inspection - Respiratory Exam Respiratory Exam: Clear to Ausculation Bilateral, NORMAL BREATHING PATTERN. absent: Rales, Rhonchi, Wheezes - Cardiovascular Exam Cardiovascular Exam: REGULAR RHYTHM, RRR, +S1, +S2 - GI/Abdominal Exam GI & Abdominal Exam: Soft, Normal Bowel Sounds. 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 Assessment and Plan - Assessment and Plan (Free Text) Assessment: 52 yo female with left lower extremity pain on plantar service of her foot. History of E. coli and MRSA. Started on Zosyn and Zyvox due to Vancomycin allergies. Wound care as per Podiatry. Check ESR. Cultures again showing E. coli and MRSA. Patient making no complaint currently. ESR of 111 and now to 88. She will need a minimum of 2 weeks equivalent of IV antibiotic unless Podiatry feels it is osteomyelitis. If podiatry feels the patient has an active osteomyelitis, the p atient would need a 6 week equivalent. Supportive care Thank you for allowing me to participate in the care of the patient, we will follow with you.
[2018-08-13] MEDS ORDERED: Linezolid 600 mg in D5W 300 ml 600 MG/300 ML BAG IVPB SCH (13:45)
[2018-08-13] MEDS: Insulin Lispro (humaLOG) MEDIUM Coverage SC SCH ×2 (17:31→22:29)
[2018-08-13] MEDS ORDERED: Insulin Human NPH/Reg 70/30 Vial(3 ml) SC SCH (18:00)
[2018-08-14] MEDS: Piperacillin/Tazobact 3.375 gm 100 ML IVPB SCH ×3 (05:55→23:17)
[2018-08-14] MEDS ORDERED: Insulin Human NPH/Reg 70/30 Vial(3 ml) SC SCH (06:00)
[2018-08-14 07:02] LABS: BASO # 0.04 K/mm3 (0.0-2.0); BASO % 0.9 % (0.0-3.0); EOS # 0.3 (0.0-0.7); EOS % 5.7 % (1.5-5.0); GRAN # 2.22 (1.4-6.5); GRAN % 49.1 % (50.0-68.0); LYMPH # 1.4 (1.2-3.4); LYMPH % 31.1 % (22.0-35.0); MEAN CELL VOLUME 89.4 fl (80.0-105.0); MEAN CORPUSCULAR HEMOGLOBIN 28.5 pg (25.0-35.0); MEAN CORPUSCULAR HGB CONC 31.9 g/dl (31.0-37.0); MEAN PLATELET VOLUME 10.1 fl (7.0-11.0); MONO # 0.6 (0.1-0.6); MONO % 13.2 % (1.0-6.0); RBC 4.17 10^6/uL (3.5-6.1); RED CELL DISTRIBUTION WIDTH 12.9 % (11.5-14.5); WHITE BLOOD COUNT 4.5 10^3/uL (4.5-11.0)
[2018-08-14 07:19] LABS: HEMOGLOBIN 11.9 g/dL (12.0-16.0)
[2018-08-14 07:27] LABS: ALBUMIN 4.1 g/dL (3.0-4.8); ALT/SGPT 22 U/L (7-56); AST/SGOT 22 U/L (14-36); BLOOD UREA NITROGEN 22 mg/dL (7-21); CALCIUM 9.7 mg/dL (8.4-10.5); GFR NON-AFRICAN AMERICAN 52
[2018-08-14] MEDS ORDERED: Insulin Lispro (humaLOG) MIX 75/25(10 ml) SC SCH (08:00)
[2018-08-14] MEDS ORDERED: Sod Polystyrene Sulf 15 gm/60 ml Susp PO ONE (08:15)
[2018-08-14] MEDS: Insulin Lispro (humaLOG) MEDIUM Coverage SC SCH ×4 (08:30→22:30)
[2018-08-14] MEDS: Pantoprazole 40 mg EC Tab PO SCH (08:30)
[2018-08-14] MEDS: [UNRECOGNIZED DRUG - OTHER] IH SCH (10:00)
[2018-08-14] MEDS ORDERED: Linezolid 600 mg in D5W 300 ml 600 MG/300 ML BAG IVPB SCH (10:00)
[2018-08-14] MEDS: Oxycodone/Acetaminophen 5/325 mg Tab PO PRN ×2 (11:38→23:09)
--- NOTE | 2018-08-14 13:51 | CP.PCM.PN ---
<Valentin Rojas - Last Filed: 08/14/18 13:48> Subjective - Date & Time of Evaluation Date of Evaluation: 08/14/18 Time of Evaluation: 08:15 - Subjective Subjective: Valentin Rojas PGY-1 Progress Note for Hospitalist Service Patient seen and evaluated at bedside. Patient sitting comfortably in chair. Reports minor headaches. Denies chest pain, palpitations, shortness of breath, blurry vision and leg pain. Objective - Vital Signs/Intake and Output Vital Signs (last 24 hours): Temp Pulse Resp BP Pulse Ox 97.6 F 64 20 124/70 100 08/14/18 06:00 08/14/18 06:00 08/14/18 06:00 08/14/18 06:00 08/14/18 06:00 Intake and Output: 08/14/18 08/14/18 06:59 18:59 Intake Total 660 Balance 660 - Medications Medications: Current Medications Albuterol Sulfate (Albuterol 0.083% Inhal Loly (2.5 Mg/3 Ml) Ud) 2.5 mg IH [id number] PRN PRN Reason: Shortness of Breath Alprazolam (Xanax) 0.5 mg PO Q12 [facility]; Protocol Last Admin: 08/14/18 09:57 Dose: 0.5 mg Atorvastatin Calcium (Lipitor) 10 mg PO HS [facility] Last Admin: 08/13/18 22:30 Dose: Not Given Dextrose (Dextrose 50% Inj) 0 ml IV STAT PRN; Protocol PRN Reason: Hypoglycemia Protocol Gemfibrozil (Lopid) 600 mg PO DAILY [facility] Last Admin: 08/14/18 09:53 Dose: 600 mg Heparin Sodium (Porcine) (Heparin) 5,000 units SC Q12 [facility]; Protocol Last Admin: 08/14/18 09:52 Dose: 5,000 units Dextrose (Dextrose 5% In Water 1000 Ml) 1,000 mls @ 0 mls/hr IV .Q0M PRN; Protocol PRN Reason: Hypoglycemia Protocol Piperacillin Sod/Tazobactam Sod (Zosyn 3.375 In Ns 100ml) 100 mls @ 25 mls/hr IVPB Q8 [facility]; Protocol Last Admin: 08/14/18 05:55 Dose: 25 mls/hr Insulin Human Lispro (Humalog Med) 0 units SC ACHS [facility]; Protocol Last Admin: 08/14/18 12:31 Dose: 7 units Insulin Lispro Protam/Lispro Human (Humalog Mix 75/25) 15 units SC BIDWM [facility] Non-Formulary Medication (Fluticasone/Vilanterol 200/25 [Breo Ellipta 200-25 Mcg Inh]) 1 puff IH DAILY [facility] Last Admin: 08/13/18 10:43 Dose: Not Given Oxycodone/Acetaminophen (Percocet 5/325 Mg Tab) 1 tab PO Q6H PRN PRN Reason: Pain, severe (8-10) Stop: 08/17/18 11:12 Last Admin: 08/14/18 11:38 Dose: 1 tab Pantoprazole Sodium (Protonix Ec Tab) 40 mg PO ACB [facility] Last Admin: 08/14/18 08:30 Dose: 40 mg Zolpidem Tartrate (Ambien) 5 mg PO HS [facility] Last Admin: 08/13/18 21:46 Dose: 5 mg - Labs Labs: 08/14/18 06:20 08/14/18 06:20 PT 10.8 SECONDS (9.4-12.5) 08/10/18 14:30 INR 0.95 08/10/18 14:30 APTT 40.8 Seconds (25.1-36.5) H 08/10/18 14:30 - Additional Findings Additional findings: - Constitutional Appears: Non-toxic, No Acute Distress - Head Exam Head Exam: ATRAUMATIC, NORMOCEPHALIC - Eye Exam Eye Exam: EOMI, Normal appearance - ENT Exam ENT Exam: Mucous Membranes Moist, Normal Exam - Neck Exam Neck exam: Positive for: Normal Inspection. Negative for: Lymphadenopathy, Tenderness - Respiratory Exam Respiratory Exam: Clear to Auscultation Bilateral, NORMAL BREATHING PATTERN. absent: Rales, Rhonchi, Wheezes, Respiratory Distress - Cardiovascular Exam Cardiovascular Exam: REGULAR RHYTHM, +S1, +S2 - GI/Abdominal Exam GI & Abdominal Exam: Normal Bowel Sounds, Soft. absent: Tenderness - Extremities Exam Extremities exam: Negative for: pedal edema Additional comments: 6 cm by 4 cm stage 3 wound on plantar surface of LLE. 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 Plan: LLE wound - s/p wound debridement - Foot x-ray shows soft tissue defect on plantar surface, no adjacent bony destruction to suggest osteomyelitis - ESR 114, CRP 15.90 - Afebrile, no leukocytosis - Zosyn 3.375 gm IV Q8H , Zyvox 600 mg IV Q12 currently, but will await podiatry input before proceeding to oral ABx - NS @ 100 ccs/hr - Percocet 1 tab Q6H PRN - Final wound culture + for E coli and MRSA - Prelim blood cultures neg x2 after 3 days - Podiatry consulted Dr. Singleton: Patient has ? history of OM diagnosed by MRI which she declined iv antibiotics by refusing sub acute care and out-patient infusion. Last MRI was performed 03/09 that was inconclusive. - ID consulted- Dr. Oakley: patient will need a minimum of 2 weeks equivalent of IV antibiotic unless Podiatry feels it is osteomyelitis. If not, can change Zyvox to PO formulation along with Keflex 500 mg TID. L foot x-rays taken: Post operative changes. Plantar soft tissue ulcer - PT eval T2DM - Hgba1c 11.7 - Humalog moderate ISS - Increased Humulin 75/25 to 15 units BID due to sugars in 300s. Continue to monitor Hyperkalemia -5.3 - Kayexalate 15 gm given - continue to monitor in AM lab HLD - Continue Lipitor 10 mg PO HS, Lopid 600 mg PO daily Asthma - Continue albuterol DVT ppx: Heparin SC Dispo: Patient is essentially homeless. SW input and recs appreciated in light of possible change to PO ABx. Patient seen, case reviewed and plan approved by Dr. Naylor. Valentin Rojas, PGY-1 <Maricarmen Naylor - Last Filed: 08/14/18 14:43> Objective - Vital Signs/Intake and Output Vital Signs (last 24 hours): Temp Pulse Resp BP Pulse Ox 97.6 F 64 20 124/70 100 08/14/18 06:00 08/14/18 06:00 08/14/18 06:00 08/14/18 06:00 08/14/18 06:00 Intake and Output: 08/14/18 08/14/18 06:59 18:59 Intake Total 660 Balance 660 - Medications Medications: Current Medications Albuterol Sulfate (Albuterol 0.083% Inhal Loly (2.5 Mg/3 Ml) Ud) 2.5 mg IH [id number] PRN PRN Reason: Shortness of Breath Alprazolam (Xanax) 0.5 mg PO Q12 [facility]; Protocol Last Admin: 08/14/18 09:57 Dose: 0.5 mg Atorvastatin Calcium (Lipitor) 10 mg PO HS [facility] Last Admin: 08/13/18 22:30 Dose: Not Given Dextrose (Dextrose 50% Inj) 0 ml IV STAT PRN; Protocol PRN Reason: Hypoglycemia Protocol Gemfibrozil (Lopid) 600 mg PO DAILY [facility] Last Admin: 08/14/18 09:53 Dose: 600 mg Heparin Sodium (Porcine) (Heparin) 5,000 units SC Q12 [facility]; Protocol Last Admin: 08/14/18 09:52 Dose: 5,000 units Dextrose (Dextrose 5% In Water 1000 Ml) 1,000 mls @ 0 mls/hr IV .Q0M PRN; Protocol PRN Reason: Hypoglycemia Protocol Piperacillin Sod/Tazobactam Sod (Zosyn 3.375 In Ns 100ml) 100 mls @ 25 mls/hr IVPB Q8 [facility]; Protocol Last Admin: 08/14/18 05:55 Dose: 25 mls/hr Insulin Human Lispro (Humalog Med) 0 units SC ACHS [facility]; Protocol Last Admin: 08/14/18 12:31 Dose: 7 units Insulin Lispro Protam/Lispro Human (Humalog Mix 75/25) 15 units SC BIDWM [facility] Non-Formulary Medication (Fluticasone/Vilanterol 200/25 [Breo Ellipta 200-25 Mcg Inh]) 1 puff IH DAILY [facility] Last Admin: 08/14/18 10:00 Dose: Not Given Oxycodone/Acetaminophen (Percocet 5/325 Mg Tab) 1 tab PO Q6H PRN PRN Reason: Pain, severe (8-10) Stop: 08/17/18 11:12 Last Admin: 08/14/18 11:38 Dose: 1 tab Pantoprazole Sodium (Protonix Ec Tab) 40 mg PO ACB [facility] Last Admin: 08/14/18 08:30 Dose: 40 mg Zolpidem Tartrate (Ambien) 5 mg PO HS [facility] Last Admin: 08/13/18 21:46 Dose: 5 mg - Labs Labs: 08/14/18 06:20 08/14/18 06:20 PT 10.8 SECONDS (9.4-12.5) 08/10/18 14:30 INR 0.95 08/10/18 14:30 APTT 40.8 Seconds (25.1-36.5) H 08/10/18 14:30 Attending/Attestation - Attestation I have personally seen and examined this patient.: Yes I have fully participated in the care of the patient.: Yes I have reviewed all pertinent clinical information, including history, physical exam and plan: Yes Notes (Text): 08/14/18 14:42 52 year old female with past medical history of diabetes and dyslipidemia who presented with complaint of left foot pain and wound. She was seen by podiatry and is s/p debridement. Wound culture is growing E Coli and MRSA. She is on on zosyn and zyvox (has vancomycin allergy). ID and podiatry are following. Will clarify with ID and podiatry regarding duration of iv antibiotics needed vs transitioning to po as patient is essentially homeless. structural steel worker apprentice input appreciated as well. Patient is on insulin ss and humulog 75/25 bid for diabetes. Maricarmen Naylor MD Hospitalist.
--- NOTE | 2018-08-14 14:39 | CP.PCM.PN ---
Subjective - Date & Time of Evaluation Date of Evaluation: 08/14/18 Time of Evaluation: 14:32 - Subjective Subjective: Podiatry Consult Note for Dr. Singleton: 52 yo female patient seen and evaluated for L plantar ulceration. Patient is seen resting comfortably in bed, NAD, Patient states that she have pressure pain with ambulation at the ulcer site. Patient denies any other pedal complaint at this time. Patient denies any overnight F/N/V/SOB/chills Objective - Vital Signs/Intake and Output Vital Signs (last 24 hours): Temp Pulse Resp BP Pulse Ox 97.6 F 64 20 124/70 100 08/14/18 06:00 08/14/18 06:00 08/14/18 06:00 08/14/18 06:00 08/14/18 06:00 Intake and Output: 08/14/18 08/14/18 06:59 18:59 Intake Total 660 Balance 660 - Medications Medications: Current Medications Albuterol Sulfate (Albuterol 0.083% Inhal Loly (2.5 Mg/3 Ml) Ud) 2.5 mg IH [id number] PRN PRN Reason: Shortness of Breath Alprazolam (Xanax) 0.5 mg PO Q12 [facility]; Protocol Last Admin: 08/14/18 09:57 Dose: 0.5 mg Atorvastatin Calcium (Lipitor) 10 mg PO HS [facility] Last Admin: 08/13/18 22:30 Dose: Not Given Dextrose (Dextrose 50% Inj) 0 ml IV STAT PRN; Protocol PRN Reason: Hypoglycemia Protocol Gemfibrozil (Lopid) 600 mg PO DAILY [facility] Last Admin: 08/14/18 09:53 Dose: 600 mg Heparin Sodium (Porcine) (Heparin) 5,000 units SC Q12 [facility]; Protocol Last Admin: 08/14/18 09:52 Dose: 5,000 units Dextrose (Dextrose 5% In Water 1000 Ml) 1,000 mls @ 0 mls/hr IV .Q0M PRN; Protocol PRN Reason: Hypoglycemia Protocol Piperacillin Sod/Tazobactam Sod (Zosyn 3.375 In Ns 100ml) 100 mls @ 25 mls/hr IVPB Q8 [facility]; Protocol Last Admin: 08/14/18 05:55 Dose: 25 mls/hr Insulin Human Lispro (Humalog Med) 0 units SC ACHS [facility]; Protocol Last Admin: 08/14/18 12:31 Dose: 7 units Insulin Lispro Protam/Lispro Human (Humalog Mix 75/25) 15 units SC BIDWM [facility] Non-Formulary Medication (Fluticasone/Vilanterol 200/25 [Breo Ellipta 200-25 Mcg Inh]) 1 puff IH DAILY [facility] Last Admin: 08/14/18 10:00 Dose: Not Given Oxycodone/Acetaminophen (Percocet 5/325 Mg Tab) 1 tab PO Q6H PRN PRN Reason: Pain, severe (8-10) Stop: 08/17/18 11:12 Last Admin: 08/14/18 11:38 Dose: 1 tab Pantoprazole Sodium (Protonix Ec Tab) 40 mg PO ACB [facility] Last Admin: 08/14/18 08:30 Dose: 40 mg Zolpidem Tartrate (Ambien) 5 mg PO HS [facility] Last Admin: 08/13/18 21:46 Dose: 5 mg - Labs Labs: 08/14/18 06:20 08/14/18 06:20 PT 10.8 SECONDS (9.4-12.5) 08/10/18 14:30 INR 0.95 08/10/18 14:30 APTT 40.8 Seconds (25.1-36.5) H 08/10/18 14:30 - Constitutional Appears: Well, Non-toxic, No Acute Distress - Head Exam Head Exam: ATRAUMATIC, NORMOCEPHALIC - Extremities Exam Additional comments: Left Lower Extremity Exam: Sanguinous Strike-through present to dressing Vasc: DP/PT pulses 1/4 , capillary refill <3 seconds to all remaining digits, temperature gradient warm to cool, no edema present Neuro: Gross sensation intact, diminished protective sensation Derm: 5 cm x 3 cm x 0.8 cm wound present on the lateral aspect of the left plantar midfoot, no drainage, undermining at the proximal aspect, negative probe to bone, no streaking or periwound erythema present, no malodor. 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 Plan: Patient seen and evaluated at the Bed side Plan reviewed with attending Dr. Singleton Chart, labs and vitals were reviewed- afebrile, absent leukocytosis ESR- 88 () from 114 upon arrival, CRP Pending L foot x-rays taken: Post operative changes. Plantar soft tissue ulcer ID consult: Patient will need a minimum of 2 weeks equivalent of IV antibiotic unless Podiatry feels it is osteomyelitis. If podiatry feels the patient has an active osteomyelitis, the patient would need a 6 week equivalent. Continue IV Abx as per Infectious Disease Wound Culture- Eschrechia Coli and MRSA ROBERTO CARLOS/PVR: WNL Wound cleased with saline and dressed with xeroform, DSD Podiatry will continue to follow up the patient while in house
--- NOTE | 2018-08-14 16:08 | CP.PCM.PN ---
Subjective - Date & Time of Evaluation Date of Evaluation: 08/14/18 Time of Evaluation: 14:15 - Subjective Subjective: Infectious Disease Follow Up: August 14, 2018 52 year old female with past medical history of T2DM, HLD, asthma, migraines presenting with chief complaint of left lower extremity pain due to a wound on the plantar surface of her foot. She states this wound has been present for the past two years and she has chronic pain because of this. However the pain has worsened in severity over the past several months. Patient was in [place] recently for management of this wound and was unable to continue recommended antibiotics on discharge due to lack of insurance coverage. She has been taking ciprofloxacin for 2 days which was prescribed by Dr. Singleton. Pain is constant and described as sharp and stabbing in character. She rates the pain +10/10 in severity. She states keeping the foot wrapped and elevating it helps alleviate the pain. She also admits to chills. Denies fevers, nausea, vomiting, chest pain , shortness of breath, abdominal pain, dysuria. Cultures showing Gram negative rods and gram positive cocci. E. Coli and MRSA in June 2018 cultures. Current cultures growing the same organisms of E. Coli and MRSA. The patient has a Vancomycin allergy. Patient is stating that she is homeless. Clinically she is not stating any pain or distress. She appears comfortable. Objective - Vital Signs/Intake and Output Vital Signs (last 24 hours): Temp Pulse Resp BP Pulse Ox 98.0 F 75 20 135/81 100 08/14/18 14:00 08/14/18 14:00 08/14/18 14:00 08/14/18 14:00 08/14/18 14:00 Intake and Output: 08/14/18 08/14/18 06:59 18:59 Intake Total 660 Balance 660 - Medications Medications: Current Medications Albuterol Sulfate (Albuterol 0.083% Inhal Loly (2.5 Mg/3 Ml) Ud) 2.5 mg IH [id number] PRN PRN Reason: Shortness of Breath Alprazolam (Xanax) 0.5 mg PO Q12 [facility]; Protocol Last Admin: 08/14/18 09:57 Dose: 0.5 mg Atorvastatin Calcium (Lipitor) 10 mg PO HS [facility] Last Admin: 08/13/18 22:30 Dose: Not Given Dextrose (Dextrose 50% Inj) 0 ml IV STAT PRN; Protocol PRN Reason: Hypoglycemia Protocol Gemfibrozil (Lopid) 600 mg PO DAILY [facility] Last Admin: 08/14/18 09:53 Dose: 600 mg Heparin Sodium (Porcine) (Heparin) 5,000 units SC Q12 [facility]; Protocol Last Admin: 08/14/18 09:52 Dose: 5,000 units Dextrose (Dextrose 5% In Water 1000 Ml) 1,000 mls @ 0 mls/hr IV .Q0M PRN; Protocol PRN Reason: Hypoglycemia Protocol Piperacillin Sod/Tazobactam Sod (Zosyn 3.375 In Ns 100ml) 100 mls @ 25 mls/hr IVPB Q8 [facility]; Protocol Last Admin: 08/14/18 05:55 Dose: 25 mls/hr Insulin Human Lispro (Humalog Med) 0 units SC ACHS [facility]; Protocol Last Admin: 08/14/18 12:31 Dose: 7 units Insulin Lispro Protam/Lispro Human (Humalog Mix 75/25) 15 units SC BIDWM [facility] Non-Formulary Medication (Fluticasone/Vilanterol 200/25 [Breo Ellipta 200-25 Mcg Inh]) 1 puff IH DAILY [facility] Last Admin: 08/14/18 10:00 Dose: Not Given Oxycodone/Acetaminophen (Percocet 5/325 Mg Tab) 1 tab PO Q6H PRN PRN Reason: Pain, severe (8-10) Stop: 08/17/18 11:12 Last Admin: 08/14/18 11:38 Dose: 1 tab Pantoprazole Sodium (Protonix Ec Tab) 40 mg PO ACB [facility] Last Admin: 08/14/18 08:30 Dose: 40 mg Zolpidem Tartrate (Ambien) 5 mg PO HS [facility] Last Admin: 08/13/18 21:46 Dose: 5 mg - Labs Labs: 08/14/18 06:20 08/14/18 06:20 PT 10.8 SECONDS (9.4-12.5) 08/10/18 14:30 INR 0.95 08/10/18 14:30 APTT 40.8 Seconds (25.1-36.5) H 08/10/18 14:30 - Constitutional Appears: Non-toxic, No Acute Distress, Chronically Ill - Head Exam Head Exam: ATRAUMATIC, NORMOCEPHALIC - Eye Exam Eye Exam: EOMI, PERRL Pupil Exam: NORMAL ACCOMODATION, PERRL - ENT Exam ENT Exam: Mucous Membranes Moist, Normal External Ear Exam, TM's Normal Bilaterally - Neck Exam Neck Exam: Full ROM, Normal Inspection - Respiratory Exam Respiratory Exam: Clear to Ausculation Bilateral, NORMAL BREATHING PATTERN. absent: Rales, Rhonchi, Wheezes - Cardiovascular Exam Cardiovascular Exam: REGULAR RHYTHM, RRR, +S1, +S2 - GI/Abdominal Exam GI & Abdominal Exam: Soft, Normal Bowel Sounds. absent: Distended, Tenderness - Extremities Exam Additional comments: 6 cm by 4 cm stage 3 wound on plantar surface of LLE Left 5th ray and 4th digit amputation Erythema surrounding wound No drainage +2/4 pulses - Neurological Exam Neurological Exam: Alert, Awake, CN II-XII Intact, Oriented x3 - Psychiatric Exam Psychiatric exam: Normal Affect, Normal Mood - Skin Additional comments: As above Assessment and Plan - Assessment and Plan (Free Text) Assessment: 52 yo female with left lower extremity pain on plantar service of her foot. History of E. coli and MRSA. Started on Zosyn and Zyvox due to Vancomycin allergies. Wound care as per Podiatry. Check ESR. Cultures again showing E. coli and MRSA. Patient making no complaint currently. ESR of 111 and now to 88. She will need a minimum of 2 weeks equivalent of IV antibiotic unless Podiatry feels it is osteomyelitis. If podiatry feels the patient has an active osteomyelitis, the patient would need a 6 week equivalent. Supportive care. Podiatry stating that the patient does not fulfull criteria for osteomyelitis. However, there are concerns given an ESR of 111 to start with. While Zyvox has good bioavailability IV or PO and can be given up to 6 weeks for the possibility of osteomyelitis. Oral treatment with Keflex 500mg QID for treatment of the E. coli for proper treatment. Thank you for allowing me to participate in the care of the patient, we will follow with you.
[2018-08-14] MEDS: Insulin Lispro (humaLOG) MIX 75/25(10 ml) SC SCH (17:14)
[2018-08-14] MEDS: Linezolid 600 mg in D5W 300 ml 600 MG/300 ML BAG IVPB SCH (23:10)
[2018-08-15] MEDS ORDERED: Piperacillin/Tazobact 3.375 gm 100 ML IVPB SCH (06:00)
[2018-08-15] MEDS: Pantoprazole 40 mg EC Tab PO SCH (06:36)
--- NOTE | 2018-08-15 06:50 | CP.PCM.PN ---
<ClarosTejalamparo L - Last Filed: 08/15/18 17:29> Subjective - Date & Time of Evaluation Date of Evaluation: 08/15/18 Time of Evaluation: 06:50 - Subjective Subjective: Resident Progress Note for Hospitalist Service Patient examined at bedside. No acute events overnight. States that her pain is well controlled at this time. Denies headache, dizziness, chest pain, shortness of breath, abdominal pain, changes in bowel movements, dysuria. Objective - Vital Signs/Intake and Output Vital Signs (last 24 hours): Temp Pulse Resp BP Pulse Ox 98.0 F 75 20 135/81 100 08/14/18 14:00 08/14/18 14:00 08/14/18 14:00 08/14/18 14:00 08/14/18 14:00 Intake and Output: 08/14/18 08/15/18 18:59 06:59 Intake Total 620 Balance 620 - Medications Medications: Current Medications Albuterol Sulfate (Albuterol 0.083% Inhal Loly (2.5 Mg/3 Ml) Ud) 2.5 mg IH [id number] PRN PRN Reason: Shortness of Breath Alprazolam (Xanax) 0.5 mg PO Q12 [facility]; Protocol Last Admin: 08/14/18 23:08 Dose: 0.5 mg Atorvastatin Calcium (Lipitor) 10 mg PO HS [facility] Last Admin: 08/14/18 23:08 Dose: 10 mg Dextrose (Dextrose 50% Inj) 0 ml IV STAT PRN; Protocol PRN Reason: Hypoglycemia Protocol Gemfibrozil (Lopid) 600 mg PO DAILY [facility] Last Admin: 08/14/18 09:53 Dose: 600 mg Heparin Sodium (Porcine) (Heparin) 5,000 units SC Q12 [facility]; Protocol Last Admin: 08/14/18 22:42 Dose: Not Given Dextrose (Dextrose 5% In Water 1000 Ml) 1,000 mls @ 0 mls/hr IV .Q0M PRN; Prot ocol PRN Reason: Hypoglycemia Protocol Linezolid (Zyvox 600mg/300ml D5w) 600 mg in 300 mls @ 200 mls/hr IVPB Q12 [facility]; Protocol Last Admin: 08/14/18 23:10 Dose: 200 mls/hr Piperacillin Sod/Tazobactam Sod (Zosyn 3.375 In Ns 100ml) 100 mls @ 25 mls/hr IVPB Q8 [facility]; Protocol Last Admin: 08/15/18 06:27 Dose: 25 mls/hr Insulin Human Lispro (Humalog Med) 0 units SC ACHS [facility]; Protocol Last Admin: 08/14/18 22:30 Dose: Not Given Insulin Lispro Protam/Lispro Human (Humalog Mix 75/25) 15 units SC BIDWM [facility] Last Admin: 08/14/18 17:14 Dose: 15 u Non-Formulary Medication (Fluticasone/Vilanterol 200/25 [Breo Ellipta 200-25 Mcg Inh]) 1 puff IH DAILY [facility] Last Admin: 08/14/18 10:00 Dose: Not Given Oxycodone/Acetaminophen (Percocet 5/325 Mg Tab) 1 tab PO Q6H PRN PRN Reason: Pain, severe (8-10) Stop: 08/17/18 11:12 Last Admin: 08/14/18 23:09 Dose: 1 tab Pantoprazole Sodium (Protonix Ec Tab) 40 mg PO ACB [facility] Last Admin: 08/15/18 06:36 Dose: 40 mg Zolpidem Tartrate (Ambien) 5 mg PO HS [facility] Last Admin: 08/14/18 23:08 Dose: 5 mg - Labs Labs: 08/14/18 06:20 08/14/18 06:20 PT 10.8 SECONDS (9.4-12.5) 08/10/18 14:30 INR 0.95 08/10/18 14:30 APTT 40.8 Seconds (25.1-36.5) H 08/10/18 14:30 - Additional Findings Additional findings: - Constitutional Appears: Non-toxic, No Acute Distress - Head Exam Head Exam: ATRAUMATIC, NORMOCEPHALIC - Eye Exam Eye Exam: EOMI, Normal appearance - ENT Exam ENT Exam: Mucous Membranes Moist, Normal Exam - Neck Exam Neck exam: Positive for: Normal Inspection. Negative for: Lymphadenopathy, Tenderness - Respiratory Exam Respiratory Exam: Clear to Auscultation Bilateral, NORMAL BREATHING PATTERN. absent: Rales, Rhonchi, Wheezes, Respiratory Distress - Cardiovascular Exam Cardiovascular Exam: REGULAR RHYTHM, +S1, +S2 - GI/Abdominal Exam GI & Abdominal Exam: Normal Bowel Sounds, Soft. absent: Tenderness - Extremities Exam Extremities exam: Negative for: pedal edema Additional comments: 6 cm by 4 cm stage 3 wound on plantar surface of LLE. Loose wrapping of surrounding bandage Left 5th ray and 4th digit amputation Erythema surrounding wound No drainage appreciated +2/4 pulses - Neurological Exam Neurological exam: Alert, Oriented x3 - Skin Skin Exam: Normal Color, Warm Assessment and Plan - Assessment and Plan (Free Text) Assessment: Patient is a 52 year old female with past medical history of T2DM, HLD, asthma, migraines presenting with chief complaint of left lower extremity pain due to a chronic wound on the plantar surface of her L foot. Plan: LLE wound - s/p wound debridement - Foot x-ray shows soft tissue defect on plantar surface, no adjacent bony destruction to suggest osteomyelitis - ESR 114, CRP 15.90 - Afebrile, no leukocytosis - Zosyn 3.375 gm IV Q8H , Zyvox 600 mg IV Q12 currently, but will await podiatry input before proceeding to oral ABx - NS @ 100 ccs/hr - Percocet 1 tab Q6H PRN - Final wound culture + for E coli and MRSA - Prelim blood cultures neg x2 after 4 days - Podiatry consulted Dr. Singleton: Patient has ? history of OM diagnosed by MRI which she declined iv antibiotics by refusing sub acute care and out-patient infusion. Last MRI was performed 03/09 that was inconclusive. - ID consulted- Dr. Oakley: patient will need a minimum of 2 weeks equivalent of IV antibiotic unless Podiatry feels it is osteomyelitis. If not, can change Zyvox to PO formulation along with Keflex 500 mg TID. L foot x-rays taken: Post operative changes. Plantar soft tissue ulcer - PT eval T2DM - Hgba1c 11.7 - Humalog moderate ISS - Increased Humulin 75/25 to 18 units BID due to sugars in 200s. Continue to monitor. Hyperkalemia- resolved - Kayexalate 15 gm given - continue to monitor in AM lab HLD - Continue Lipitor 10 mg PO HS, Lopid 600 mg PO daily Asthma - Continue albuterol DVT ppx - Heparin SC Dispo: Patient is essentially homeless. SW input and recs appreciated in light of possible change to PO abx. Patient seen, case reviewed and plan approved by Dr. Cyndy Claros, PGY-1 <Maricarmen Naylor - Last Filed: 08/15/18 17:36> Objective - Vital Signs/Intake and Output Vital Signs (last 24 hours): Temp Pulse Resp BP Pulse Ox 97.9 F 67 20 139/93 H 100 08/15/18 14:00 08/15/18 14:00 08/15/18 14:00 08/15/18 14:00 08/15/18 14:00 - Medications Medications: Current Medications Albuterol Sulfate (Albuterol 0.083% Inhal Loly (2.5 Mg/3 Ml) Ud) 2.5 mg IH [id number] PRN PRN Reason: Shortness of Breath Alprazolam (Xanax) 0.5 mg PO Q12 [facility]; Protocol Last Admin: 08/15/18 11:18 Dose: 0.5 mg Atorvastatin Calcium (Lipitor) 10 mg PO HS [facility] Last Admin: 08/14/18 23:08 Dose: 10 mg Dextrose (Dextrose 50% Inj) 0 ml IV STAT PRN; Protocol PRN Reason: Hypoglycemia Protocol Gemfibrozil (Lopid) 600 mg PO DAILY [facility] Last Admin: 08/15/18 11:19 Dose: 600 mg Heparin Sodium (Porcine) (Heparin) 5,000 units SC Q12 [facility]; Protocol Last Admin: 08/15/18 11:13 Dose: Not Given Dextrose (Dextrose 5% In Water 1000 Ml) 1,000 mls @ 0 mls/hr IV .Q0M PRN; Protocol PRN Reason: Hypoglycemia Protocol Linezolid (Zyvox 600mg/300ml D5w) 600 mg in 300 mls @ 200 mls/hr IVPB Q12 [facility]; Protocol Last Admin: 08/15/18 11:17 Dose: 200 mls/hr Piperacillin Sod/Tazobactam Sod (Zosyn 3.375 In Ns 100ml) 100 mls @ 25 mls/hr IVPB Q8 [facility]; Protocol Last Admin: 08/15/18 14:59 Dose: 25 mls/hr Insulin Human Lispro (Humalog Med) 0 units SC ACHS [facility]; Protocol Last Admin: 08/15/18 17:12 Dose: 3 units Insulin Lispro Protam/Lispro Human (Humalog Mix 75/25) 18 units SC BIDWM [facility] Non-Formulary Medication (Fluticasone/Vilanterol 200/25 [Breo Ellipta 200-25 Mcg Inh]) 1 puff IH DAILY [facility] Last Admin: 08/15/18 11:13 Dose: Not Given Oxycodone/Acetaminophen (Percocet 5/325 Mg Tab) 1 tab PO Q6H PRN PRN Reason: Pain, severe (8-10) Stop: 08/17/18 11:12 Last Admin: 08/15/18 15:18 Dose: 1 tab Pantoprazole Sodium (Protonix Ec Tab) 40 mg PO ACB [facility] Last Admin: 08/15/18 06:36 Dose: 40 mg Zolpidem Tartrate (Ambien) 5 mg PO HS [facility] Last Admin: 08/14/18 23:08 Dose: 5 mg - Labs Labs: 08/15/18 06:00 08/15/18 06:00 PT 10.8 SECONDS (9.4-12.5) 08/10/18 14:30 INR 0.95 08/10/18 14:30 APTT 40.8 Seconds (25.1-36.5) H 08/10/18 14:30 Attending/Attestation - Attestation I have personally seen and examined this patient.: Yes I have fully participated in the care of the patient.: Yes I have reviewed all pertinent clinical information, including history, physical exam and plan: Yes Notes (Text): 08/15/18 17:34 52 year old female with past medical history of diabetes, chronic osteomyelitis and dyslipidemia who presented with complaint of left foot pain and wound. She was seen by podiatry and is s/p debridement. Wound culture is growing E Coli and MRSA. She is on on zosyn and zyvox (has vancomycin allergy). ID and podiatry are following. Will clarify with ID and podiatry regarding duration of iv antibiotics needed vs transitioning to po as patient is essentially homeless. MRI is ordered by podiatry however patient is insistent this was done earlier this week. I am unable to find recent study done. Will clarify with radiology and podiatry. Patient is on insulin ss and humulog 75/25 bid for diabetes. Maricarmen Naylor MD Hospitalist.
[2018-08-15 07:04] LABS: BASO # 0.09 K/mm3 (0.0-2.0); BASO % 1.7 % (0.0-3.0); EOS # 0.3 (0.0-0.7); EOS % 5.4 % (1.5-5.0); GRAN # 2.39 (1.4-6.5); GRAN % 44.5 % (50.0-68.0); HEMOGLOBIN 11.8 g/dL (12.0-16.0); LYMPH % 36.8 % (22.0-35.0); MEAN CORPUSCULAR HEMOGLOBIN 28.8 pg (25.0-35.0); MEAN CORPUSCULAR HGB CONC 31.6 g/dl (31.0-37.0); MEAN PLATELET VOLUME 10.1 fl (7.0-11.0); MONO # 0.6 (0.1-0.6); MONO % 11.6 % (1.0-6.0); RBC 4.1 10^6/uL (3.5-6.1); RED CELL DISTRIBUTION WIDTH 12.7 % (11.5-14.5); WHITE BLOOD COUNT 5.4 10^3/uL (4.5-11.0)
[2018-08-15 07:41] LABS: CALCIUM 9.4 mg/dL (8.4-10.5)
[2018-08-15] MEDS: Insulin Lispro (humaLOG) MEDIUM Coverage SC SCH ×3 (08:48→17:12)
[2018-08-15] MEDS: Insulin Lispro (humaLOG) MIX 75/25(10 ml) SC SCH ×2 (08:48→17:13)
--- NOTE | 2018-08-15 11:07 | CP.PCM.PN ---
Subjective - Date & Time of Evaluation Date of Evaluation: 08/15/18 Time of Evaluation: 11:03 - Subjective Subjective: Podiatry Consult Note for Dr. Singleton: 52 y/o female patient seen and evaluated for L plantar ulceration. Patient is seen resting comfortably in bed, NAD, Patient states that she have pressure pain with ambulation at the ulcer site. Patient denies any other pedal complaint at this time. Patient denies any overnight F/N/V/SOB/chills Objective - Vital Signs/Intake and Output Vital Signs (last 24 hours): Temp Pulse Resp BP Pulse Ox 97.6 F 61 18 111/66 99 08/15/18 06:00 08/15/18 06:00 08/15/18 06:00 08/15/18 06:00 08/15/18 06:00 - Medications Medications: Current Medications Albuterol Sulfate (Albuterol 0.083% Inhal Loly (2.5 Mg/3 Ml) Ud) 2.5 mg IH [id number] PRN PRN Reason: Shortness of Breath Alprazolam (Xanax) 0.5 mg PO Q12 [facility]; Protocol Last Admin: 08/14/18 23:08 Dose: 0.5 mg Atorvastatin Calcium (Lipitor) 10 mg PO HS [facility] Last Admin: 08/14/18 23:08 Dose: 10 mg Dextrose (Dextrose 50% Inj) 0 ml IV STAT PRN; Protocol PRN Reason: Hypoglycemia Protocol Gemfibrozil (Lopid) 600 mg PO DAILY [facility] Last Admin: 08/14/18 09:53 Dose: 600 mg Heparin Sodium (Porcine) (Heparin) 5,000 units SC Q12 [facility]; Protocol Last Admin: 08/14/18 22:42 Dose: Not Given Dextrose (Dextrose 5% In Water 1000 Ml) 1,000 mls @ 0 mls/hr IV .Q0M PRN; Protocol PRN Reason: Hypoglycemia Protocol Linezolid (Zyvox 600mg/300ml D5w) 600 mg in 300 mls @ 200 mls/hr IVPB Q12 [facility]; Protocol Last Admin: 08/14/18 23:10 Dose: 200 mls/hr Piperacillin Sod/Tazobactam Sod (Zosyn 3.375 In Ns 100ml) 100 mls @ 25 mls/hr IVPB Q8 [facility]; Protocol Last Admin: 08/15/18 06:27 Dose: 25 mls/hr Insulin Human Lispro (Humalog Med) 0 units SC ACHS [facility]; Protocol Last Admin: 08/15/18 08:48 Dose: 3 units Insulin Lispro Protam/Lispro Human (Humalog Mix 75/25) 15 units SC BIDWM [facility] Last Admin: 08/15/18 08:48 Dose: 15 u Non-Formulary Medication (Fluticasone/Vilanterol 200/25 [Breo Ellipta 200-25 Mcg Inh]) 1 puff IH DAILY [facility] Last Admin: 08/14/18 10:00 Dose: Not Given Oxycodone/Acetaminophen (Percocet 5/325 Mg Tab) 1 tab PO Q6H PRN PRN Reason: Pain, severe (8-10) Stop: 08/17/18 11:12 Last Admin: 08/14/18 23:09 Dose: 1 tab Pantoprazole Sodium (Protonix Ec Tab) 40 mg PO ACB [facility] Last Admin: 08/15/18 06:36 Dose: 40 mg Zolpidem Tartrate (Ambien) 5 mg PO HS [facility] Last Admin: 08/14/18 23:08 Dose: 5 mg - Labs Labs: 08/15/18 06:00 08/15/18 06:00 PT 10.8 SECONDS (9.4-12.5) 08/10/18 14:30 INR 0.95 08/10/18 14:30 APTT 40.8 Seconds (25.1-36.5) H 08/10/18 14:30 - Constitutional Appears: Well, Non-toxic, No Acute Distress - Head Exam Head Exam: ATRAUMATIC, NORMOCEPHALIC - Extremities Exam Additional comments: Left Lower Extremity Exam: Sanguinous Strike-through present to dressing Vasc: DP/PT pulses 1/4 , capillary refill <3 seconds to all remaining digits, temperature gradient warm to cool, no edema present Neuro: Gross sensation intact, diminished protective sensation Derm: 5 cm x 3 cm x 0.8 cm wound present on the lateral aspect of the left plantar midfoot, no drainage, undermining at the proximal aspect, negative probe to bone, no streaking or periwound erythema present, no malodor. 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 Plan: Patient seen and evaluated at the Bed side Plan reviewed with attending Dr. Singleton Chart, labs and vitals were reviewed- afebrile, absent leukocytosis ESR- 88 () from 114 upon arrival, CRP Pending L foot x-rays taken: Post operative changes. Plantar soft tissue ulcer ID consult: Patient will need a minimum of 2 weeks equivalent of IV antibiotic unless Podiatry feels it is osteomyelitis. If podiatry feels the patient has an active osteomyelitis, the patient would need a 6 week equivalent. Continue IV Abx as per Infectious Disease Wound Culture- Eschrechia Coli and MRSA ROBERTO CARLOS/PVR: WNL Ordered surgical shoe for the left foot. Patient to ambulates all the times in the surgical shoe. Wound dressed with xeroform, DSD Podiatry will continue to follow up the patient while in house
[2018-08-15] MEDS: [UNRECOGNIZED DRUG - OTHER] IH SCH (11:13)
[2018-08-15] MEDS: Linezolid 600 mg in D5W 300 ml 600 MG/300 ML BAG IVPB SCH ×2 (11:17→22:32)
--- NOTE | 2018-08-15 13:53 | CP.PCM.PN ---
Subjective - Date & Time of Evaluation Date of Evaluation: 08/15/18 Time of Evaluation: 11:45 - Subjective Subjective: Infectious Disease Follow Up: August 15, 2018 52 year old female with past medical history of T2DM, HLD, asthma, migraines presenting with chief complaint of left lower extremity pain due to a wound on the plantar surface of her foot. She states this wound has been present for the past two years and she has chronic pain because of this. However the pain has worsened in severity over the past several months. Patient was in [place] recently for management of this wound and was unable to continue recommended antibiotics on discharge due to lack of insurance coverage. She has been taking ciprofloxacin for 2 days which was prescribed by Dr. Singleton. Pain is constant and described as sharp and stabbing in character. She rates the pain +10/10 in severity. She states keeping the foot wrapped and elevating it helps alleviate the pain. She also admits to chills. Denies fevers, nausea, vomiting, chest pain , shortness of breath, abdominal pain, dysuria. Cultures showing Gram negative rods and gram positive cocci. E. Coli and MRSA in June 2018 cultures. Current cultures growing the same organisms of E. Coli and MRSA. The patient has a Vancomycin allergy. Patient is stating that she is homeless. Clinically she is not stating any pain or distress. She appears comfortable. Objective - Vital Signs/Intake and Output Vital Signs (last 24 hours): Temp Pulse Resp BP Pulse Ox 97.6 F 61 18 111/66 99 08/15/18 06:00 08/15/18 06:00 08/15/18 06:00 08/15/18 06:00 08/15/18 06:00 - Medications Medications: Current Medications Albuterol Sulfate (Albuterol 0.083% Inhal Loly (2.5 Mg/3 Ml) Ud) 2.5 mg IH [id number] PRN PRN Reason: Shortness of Breath Alprazolam (Xanax) 0.5 mg PO Q12 [facility]; Protocol Last Admin: 08/15/18 11:18 Dose: 0.5 mg Atorvastatin Calcium (Lipitor) 10 mg PO HS [facility] Last Admin: 08/14/18 23:08 Dose: 10 mg Dextrose (Dextrose 50% Inj) 0 ml IV STAT PRN; Protocol PRN Reason: Hypoglycemia Protocol Gemfibrozil (Lopid) 600 mg PO DAILY [facility] Last Admin: 08/15/18 11:19 Dose: 600 mg Heparin Sodium (Porcine) (Heparin) 5,000 units SC Q12 [facility]; Protocol Last Admin: 08/15/18 11:13 Dose: Not Given Dextrose (Dextrose 5% In Water 1000 Ml) 1,000 mls @ 0 mls/hr IV .Q0M PRN; Protocol PRN Reason: Hypoglycemia Protocol Linezolid (Zyvox 600mg/300ml D5w) 600 mg in 300 mls @ 200 mls/hr IVPB Q12 [facility]; Protocol Last Admin: 08/15/18 11:17 Dose: 200 mls/hr Piperacillin Sod/Tazobactam Sod (Zosyn 3.375 In Ns 100ml) 100 mls @ 25 mls/hr IVPB Q8 [facility]; Protocol Last Admin: 08/15/18 06:27 Dose: 25 mls/hr Piperacillin Sod/Tazobactam Sod (Zosyn 3.375 In Ns 100ml) 100 mls @ 25 mls/hr IVPB Q8 [facility]; Protocol Insulin Human Lispro (Humalog Med) 0 units SC ACHS [facility]; Protocol Last Admin: 08/15/18 12:31 Dose: 7 units Insulin Lispro Protam/Lispro Human (Humalog Mix 75/25) 15 units SC BIDWM [facility] Last Admin: 08/15/18 08:48 Dose: 15 u Non-Formulary Medication (Fluticasone/Vilanterol 200/25 [Breo Ellipta 200-25 Mcg Inh]) 1 puff IH DAILY [facility] Last Admin: 08/15/18 11:13 Dose: Not Given Oxycodone/Acetaminophen (Percocet 5/325 Mg Tab) 1 tab PO Q6H PRN PRN Reason: Pain, severe (8-10) Stop: 08/17/18 11:12 Last Admin: 08/14/18 23:09 Dose: 1 tab Pantoprazole Sodium (Protonix Ec Tab) 40 mg PO ACB [facility] Last Admin: 08/15/18 06:36 Dose: 40 mg Zolpidem Tartrate (Ambien) 5 mg PO HS [facility] Last Admin: 08/14/18 23:08 Dose: 5 mg - Labs Labs: 08/15/18 06:00 08/15/18 06:00 PT 10.8 SECONDS (9.4-12.5) 08/10/18 14:30 INR 0.95 08/10/18 14:30 APTT 40.8 Seconds (25.1-36.5) H 08/10/18 14:30 - Constitutional Appears: Non-toxic, No Acute Distress, Chronically Ill - Head Exam Head Exam: ATRAUMATIC, NORMOCEPHALIC - Eye Exam Eye Exam: EOMI, PERRL Pupil Exam: NORMAL ACCOMODATION, PERRL - ENT Exam ENT Exam: Mucous Membranes Moist, Normal External Ear Exam, TM's Normal Bilaterally - Neck Exam Neck Exam: Full ROM, Normal Inspection - Respiratory Exam Respiratory Exam: Clear to Ausculation Bilateral, NORMAL BREATHING PATTERN. absent: Rales, Rhonchi, Wheezes - Cardiovascular Exam Cardiovascular Exam: REGULAR RHYTHM, RRR, +S1, +S2 - GI/Abdominal Exam GI & Abdominal Exam: Soft, Normal Bowel Sounds. absent: Distended, Tenderness - Extremities Exam Additional comments: 6 cm by 4 cm stage 3 wound on plantar surface of LLE Left 5th ray and 4th digit amputation Erythema surrounding wound No drainage +2/4 pulses - Neurological Exam Neurological Exam: Alert, Awake, CN II-XII Intact, Oriented x3 - Psychiatric Exam Psychiatric exam: Normal Affect, Normal Mood - Skin Additional comments: As above Assessment and Plan - Assessment and Plan (Free Text) Assessment: 52 yo female with left lower extremity pain on plantar service of her foot. History of E. coli and MRSA. Started on Zosyn and Zyvox due to Vancomycin allergies. Wound care as per Podiatry. Check ESR. Cultures again showing E. coli and MRSA. Patient making no complaint currently. ESR of 111 and now to 88. She will need a minimum of 2 weeks equivalent of IV antibiotic unless Podiatry feels it is osteomyelitis. If podiatry feels the patient has an active osteomyelitis, the patient would need a 6 week equivalent. Supportive care. Podiatry stating that the patient does not fulfull criteria for osteomyelitis. However, there are concerns given an ESR of 111 to start with. While Zyvox has good bioavailability IV or PO and can be given up to 6 weeks for the possibility of osteomyelitis. Oral treatment with Keflex 500mg QID for treatment of the E. coli for proper treatment. Maintain on Zosyn and Zyvox while in hospital. Thank you for allowing me to participate in the care of the patient, we will follow with you.
[2018-08-15] MEDS: Piperacillin/Tazobact 3.375 gm 100 ML IVPB SCH ×2 (14:59→22:31)
[2018-08-15] MEDS: Oxycodone/Acetaminophen 5/325 mg Tab PO PRN ×2 (15:18→22:18)
[2018-08-15] MEDS ORDERED: Insulin Lispro (humaLOG) MIX 75/25(10 ml) SC SCH (17:27)
[2018-08-16] MEDS: Insulin Lispro (humaLOG) MEDIUM Coverage SC SCH ×5 (00:19→23:10)
[2018-08-16] MEDS: Piperacillin/Tazobact 3.375 gm 100 ML IVPB SCH ×3 (06:04→22:06)
--- NOTE | 2018-08-16 07:19 | CP.PCM.PN ---
<Valeria Claros L - Last Filed: 08/16/18 15:14> Subjective - Date & Time of Evaluation Date of Evaluation: 08/16/18 Time of Evaluation: 08:00 - Subjective Subjective: Resident Progress Note for Hospitalist Service Patient examined at bedside. No acute events overnight. States she has had several episodes of loose watery bowel movements overnight. Patient states her pain is well managed. Denies headache, dizziness, chest pain, shortness of breath, abdominal pain, hematochezia. Objective - Vital Signs/Intake and Output Vital Signs (last 24 hours): Temp Pulse Resp BP Pulse Ox 98.8 F 65 18 110/72 99 08/16/18 06:00 08/16/18 06:00 08/16/18 06:00 08/16/18 06:00 08/16/18 06:00 Intake and Output: 08/16/18 08/16/18 06:59 18:59 Intake Total 840 Output Total 0 Balance 840 - Medications Medications: Current Medications Albuterol Sulfate (Albuterol 0.083% Inhal Loly (2.5 Mg/3 Ml) Ud) 2.5 mg IH [id number] PRN PRN Reason: Shortness of Breath Alprazolam (Xanax) 0.5 mg PO Q12 [facility]; Protocol Last Admin: 08/15/18 22:18 Dose: 0.5 mg Atorvastatin Calcium (Lipitor) 10 mg PO HS [facility] Last Admin: 08/15/18 22:20 Dose: 10 mg Dextrose (Dextrose 50% Inj) 0 ml IV STAT PRN; Protocol PRN Reason: Hypoglycemia Protocol Gemfibrozil (Lopid) 600 mg PO DAILY [facility] Last Admin: 08/15/18 11:19 Dose: 600 mg Heparin Sodium (Porcine) (Heparin) 5,000 units SC Q12 [facility]; Protocol Last Admin: 08/15/18 22:30 Dose: Not Given Dextrose (Dextrose 5% In Water 1000 Ml) 1,000 mls @ 0 mls/hr IV .Q0M PRN; Protocol PRN Reason: Hypoglycemia Protocol Linezolid (Zyvox 600mg/300ml D5w) 600 mg in 300 mls @ 200 mls/hr IVPB Q12 [facility]; Protocol Last Admin: 08/15/18 22:32 Dose: 200 mls/hr Piperacillin Sod/Tazobactam Sod (Zosyn 3.375 In Ns 100ml) 100 mls @ 25 mls/hr IVPB Q8 [facility]; Protocol Last Admin: 08/16/18 06:04 Dose: 25 mls/hr Insulin Human Lispro (Humalog Med) 0 units SC ACHS [facility]; Protocol Last Admin: 08/16/18 00:19 Dose: Not Given Insulin Lispro Protam/Lispro Human (Humalog Mix 75/25) 18 units SC BIDWM [facility] Non-Formulary Medication (Fluticasone/Vilanterol 200/25 [Breo Ellipta 200-25 Mcg Inh]) 1 puff IH DAILY [facility] Last Admin: 08/15/18 11:13 Dose: Not Given Oxycodone/Acetaminophen (Percocet 5/325 Mg Tab) 1 tab PO Q6H PRN PRN Reason: Pain, severe (8-10) Stop: 08/17/18 11:12 Last Admin: 08/15/18 22:18 Dose: 1 tab Pantoprazole Sodium (Protonix Ec Tab) 40 mg PO ACB [facility] Last Admin: 08/15/18 06:36 Dose: 40 mg Zolpidem Tartrate (Ambien) 5 mg PO HS [facility] Last Admin: 08/15/18 22:18 Dose: 5 mg - Labs Labs: 08/15/18 06:00 08/15/18 06:00 PT 10.8 SECONDS (9.4-12.5) 08/10/18 14:30 INR 0.95 08/10/18 14:30 APTT 40.8 Seconds (25.1-36.5) H 08/10/18 14:30 - Additional Findings Additional findings: - Constitutional Appears: Non-toxic, No Acute Distress - Head Exam Head Exam: ATRAUMATIC, NORMOCEPHALIC - Eye Exam Eye Exam: EOMI, Normal appearance - ENT Exam ENT Exam: Mucous Membranes Moist, Normal Exam - Neck Exam Neck exam: Positive for: Normal Inspection. Negative for: Lymphadenopathy, Tenderness - Respiratory Exam Respiratory Exam: Clear to Auscultation Bilateral, NORMAL BREATHING PATTERN. absent: Rales, Rhonchi, Wheezes, Respiratory Distress - Cardiovascular Exam Cardiovascular Exam: REGULAR RHYTHM, +S1, +S2 - GI/Abdominal Exam GI & Abdominal Exam: Normal Bowel Sounds, Soft. absent: Tenderness - Extremities Exam Extremities exam: Negative for: pedal edema Additional comments: 6 cm by 4 cm stage 3 wound on plantar surface of LLE. Loose wrapping of surround ing bandage Left 5th ray and 4th digit amputation Erythema surrounding wound No drainage appreciated +2/4 pulses - Neurological Exam Neurological exam: Alert, Oriented x3 - Skin Skin Exam: Normal Color, Warm Assessment and Plan - Assessment and Plan (Free Text) Assessment: Patient is a 52 year old female with past medical history of T2DM, HLD, asthma, migraines presenting with chief complaint of left lower extremity pain due to a chronic wound on the plantar surface of her L foot. Plan: LLE wound - s/p wound debridement - Foot x-ray shows soft tissue defect on plantar surface, no adjacent bony destruction to suggest osteomyelitis - ESR 114, CRP 15.90 - Afebrile, no leukocytosis - Zosyn 3.375 gm IV Q8H , Zyvox 600 mg IV Q12 currently - Percocet 1 tab Q6H PRN - Final wound culture + for E coli and MRSA - Prelim blood cultures neg x2 after 4 days - Podiatry consulted. Patient has ? history of OM diagnosed by MRI which she declined iv antibiotics by refusing sub acute care and out-patient infusion. Last MRI was performed 03/09 that was inconclusive. - ID consulted. Patient will need a minimum of 2 weeks equivalent of IV antibiotic unless Podiatry feels it is osteomyelitis. If not, can change Zyvox to PO formulation along with Keflex 500 mg TID. - PT eval - followup MRI Diarrhea - likely due to antibiotics - followup c.diff T2DM - Hgba1c 11.7 - Humalog moderate ISS - Increased Humulin 75/25 to 21 units BID due to sugars in 200s. Continue to monitor. Hyperkalemia- resolved - Kayexalate 15 gm given - continue to monitor in AM lab HLD - Continue Lipitor 10 mg PO HS, Lopid 600 mg PO daily Asthma - Continue albuterol DVT ppx - Heparin SC Dispo: Patient is essentially homeless. SW input and recs appreciated in light of possible change to PO abx. Patient seen, case reviewed and plan approved by Dr. Cyndy Claros, PGY-1 <Maricarmen Naylor - Last Filed: 08/16/18 16:14> Objective - Vital Signs/Intake and Output Vital Signs (last 24 hours): Temp Pulse Resp BP Pulse Ox 97.4 F L 69 18 105/69 99 08/16/18 14:00 08/16/18 14:00 08/16/18 14:00 08/16/18 14:00 08/16/18 14:00 Intake and Output: 08/16/18 08/16/18 06:59 18:59 Intake Total 840 Output Total 0 Balance 840 - Medications Medications: Current Medications Albuterol Sulfate (Albuterol 0.083% Inhal Loly (2.5 Mg/3 Ml) Ud) 2.5 mg IH [id number] PRN PRN Reason: Shortness of Breath Alprazolam (Xanax) 0.5 mg PO Q12 [facility]; Protocol Last Admin: 08/16/18 09:13 Dose: 0.5 mg Atorvastatin Calcium (Lipitor) 10 mg PO HS [facility] Last Admin: 08/15/18 22:20 Dose: 10 mg Dextrose (Dextrose 50% Inj) 0 ml IV STAT PRN; Protocol PRN Reason: Hypoglycemia Protocol Gemfibrozil (Lopid) 600 mg PO DAILY [facility] Last Admin: 08/16/18 09:13 Dose: 600 mg Heparin Sodium (Porcine) (Heparin) 5,000 units SC Q12 [facility]; Protocol Last Admin: 08/16/18 10:20 Dose: Not Given Dextrose (Dextrose 5% In Water 1000 Ml) 1,000 mls @ 0 mls/hr IV .Q0M PRN; Protocol PRN Reason: Hypoglycemia Protocol Linezolid (Zyvox 600mg/300ml D5w) 600 mg in 300 mls @ 200 mls/hr IVPB Q12 [facility]; Protocol Last Admin: 08/16/18 11:21 Dose: 200 mls/hr Piperacillin Sod/Tazobactam Sod (Zosyn 3.375 In Ns 100ml) 100 mls @ 25 mls/hr IVPB Q8 [facility]; Protocol Last Admin: 08/16/18 14:58 Dose: 25 mls/hr Insulin Human Lispro (Humalog Med) 0 units SC ACHS [facility]; Protocol Last Admin: 08/16/18 12:27 Dose: 8 units Insulin Lispro Protam/Lispro Human (Humalog Mix 75/25) 21 units SC BIDWM [facility] Non-Formulary Medication (Fluticasone/Vilanterol 200/25 [Breo Ellipta 200-25 Mcg Inh]) 1 puff IH DAILY [facility] Last Admin: 08/16/18 11:20 Dose: Not Given Oxycodone/Acetaminophen (Percocet 5/325 Mg Tab) 1 tab PO Q6H PRN PRN Reason: Pain, severe (8-10) Stop: 08/17/18 11:12 Last Admin: 08/15/18 22:18 Dose: 1 tab Pantoprazole Sodium (Protonix Ec Tab) 40 mg PO ACB [facility] Last Admin: 08/16/18 08:03 Dose: 40 mg Zolpidem Tartrate (Ambien) 5 mg PO HS [facility] Last Admin: 08/15/18 22:18 Dose: 5 mg - Labs Labs: 08/16/18 07:00 08/16/18 07:00 PT 10.8 SECONDS (9.4-12.5) 08/10/18 14:30 INR 0.95 08/10/18 14:30 APTT 40.8 Seconds (25.1-36.5) H 08/10/18 14:30 Attending/Attestation - Attestation I have personally seen and examined this patient.: Yes I have fully participated in the care of the patient.: Yes I have reviewed all pertinent clinical information, including history, physical exam and plan: Yes Notes (Text): 08/16/18 16:13 52 year old female with past medical history of diabetes, chronic osteomyelitis and dyslipidemia who presented with complaint of left foot pain and wound. She was seen by podiatry and is s/p debridement. Wound culture is growing E Coli and MRSA. She is on on zosyn and zyvox (has vancomycin allergy). ID and podiatry are following. She had MRI study today; will follow up report and follow up with ID/podiatry recommendations. Today is complaining of diarrhea; stool for cdif is ordered. Patient is on insulin ss and humulog 75/25 bid for diabetes. Maricarmen Naylor MD Hospitalist.
[2018-08-16 08:01] LABS: BASO # 0.05 K/mm3 (0.0-2.0); EOS # 0.3 (0.0-0.7); EOS % 5.3 % (1.5-5.0); GRAN # 2.55 (1.4-6.5); GRAN % 49.8 % (50.0-68.0); HEMOGLOBIN 12.3 g/dL (12.0-16.0); LYMPH # 1.7 (1.2-3.4); LYMPH % 34.1 % (22.0-35.0); MEAN CELL VOLUME 89.1 fl (80.0-105.0); MEAN CORPUSCULAR HEMOGLOBIN 29.1 pg (25.0-35.0); MEAN CORPUSCULAR HGB CONC 32.7 g/dl (31.0-37.0); MEAN PLATELET VOLUME 10.2 fl (7.0-11.0); MONO # 0.5 (0.1-0.6); MONO % 9.8 % (1.0-6.0); RBC 4.22 10^6/uL (3.5-6.1); RED CELL DISTRIBUTION WIDTH 12.7 % (11.5-14.5); WHITE BLOOD COUNT 5.1 10^3/uL (4.5-11.0)
[2018-08-16] MEDS: Pantoprazole 40 mg EC Tab PO SCH (08:03)
[2018-08-16 08:23] LABS: ALB/GLOB RATIO 1.1 (1.1-1.8); ALBUMIN 4.1 g/dL (3.0-4.8); ALT/SGPT 23 U/L (7-56); AST/SGOT 28 U/L (14-36); BLOOD UREA NITROGEN 27 mg/dL (7-21); CALCIUM 9.4 mg/dL (8.4-10.5); GFR NON-AFRICAN AMERICAN 52
[2018-08-16] MEDS: [UNRECOGNIZED DRUG - OTHER] IH SCH (11:20)
[2018-08-16] MEDS: Linezolid 600 mg in D5W 300 ml 600 MG/300 ML BAG IVPB SCH ×2 (11:21→22:08)
--- NOTE | 2018-08-16 17:38 | CP.PCM.PN ---
Subjective - Date & Time of Evaluation Date of Evaluation: 08/16/18 Time of Evaluation: 15:00 - Subjective Subjective: Infectious Disease Follow Up: August 16, 2018 52 year old female with past medical history of T2DM, HLD, asthma, migraines presenting with chief complaint of left lower extremity pain due to a wound on the plantar surface of her foot. She states this wound has been present for the past two years and she has chronic pain because of this. However the pain has worsened in severity over the past several months. Patient was in [place] recently for management of this wound and was unable to continue recommended antibiotics on discharge due to lack of insurance coverage. She has been taking ciprofloxacin for 2 days which was prescribed by Dr. Singleton. Pain is constant and described as sharp and stabbing in character. She rates the pain +10/10 in severity. She states keeping the foot wrapped and elevating it helps alleviate the pain. She also admits to chills. Denies fevers, nausea, vomiting, chest pain , shortness of breath, abdominal pain, dysuria. Cultures showing Gram negative rods and gram positive cocci. E. Coli and MRSA in June 2018 cultures. Current cultures growing the same organisms of E. Coli and MRSA. The patient has a Vancomycin allergy. Patient is stating that she is homeless. Clinically she is not stating any pain or distress. She appears comfortable. Spoke to Dr. Singleton and Dr. Naylor. Objective - Vital Signs/Intake and Output Vital Signs (last 24 hours): Temp Pulse Resp BP Pulse Ox 97.4 F L 69 18 105/69 99 08/16/18 14:00 08/16/18 14:00 08/16/18 14:00 08/16/18 14:00 08/16/18 14:00 Intake and Output: 08/16/18 08/16/18 06:59 18:59 Intake Total 840 Output Total 0 Balance 840 - Medications Medications: Current Medications Albuterol Sulfate (Albuterol 0.083% Inhal Loly (2.5 Mg/3 Ml) Ud) 2.5 mg IH [id number] PRN PRN Reason: Shortness of Breath Alprazolam (Xanax) 0.5 mg PO Q12 [facility]; Protocol Last Admin: 08/16/18 09:13 Dose: 0.5 mg Atorvastatin Calcium (Lipitor) 10 mg PO HS [facility] Last Admin: 08/15/18 22:20 Dose: 10 mg Dextrose (Dextrose 50% Inj) 0 ml IV STAT PRN; Protocol PRN Reason: Hypoglycemia Protocol Gemfibrozil (Lopid) 600 mg PO DAILY [facility] Last Admin: 08/16/18 09:13 Dose: 600 mg Heparin Sodium (Porcine) (Heparin) 5,000 units SC Q12 [facility]; Protocol Last Admin: 08/16/18 10:20 Dose: Not Given Dextrose (Dextrose 5% In Water 1000 Ml) 1,000 mls @ 0 mls/hr IV .Q0M PRN; Prot ocol PRN Reason: Hypoglycemia Protocol Linezolid (Zyvox 600mg/300ml D5w) 600 mg in 300 mls @ 200 mls/hr IVPB Q12 [facility]; Protocol Last Admin: 08/16/18 11:21 Dose: 200 mls/hr Piperacillin Sod/Tazobactam Sod (Zosyn 3.375 In Ns 100ml) 100 mls @ 25 mls/hr IVPB Q8 [facility]; Protocol Last Admin: 08/16/18 14:58 Dose: 25 mls/hr Insulin Human Lispro (Humalog Med) 0 units SC ACHS [facility]; Protocol Last Admin: 08/16/18 12:27 Dose: 8 units Insulin Lispro Protam/Lispro Human (Humalog Mix 75/25) 21 units SC BIDWM [facility] Non-Formulary Medication (Fluticasone/Vilanterol 200/25 [Breo Ellipta 200-25 Mcg Inh]) 1 puff IH DAILY [facility] Last Admin: 08/16/18 11:20 Dose: Not Given Oxycodone/Acetaminophen (Percocet 5/325 Mg Tab) 1 tab PO Q6H PRN PRN Reason: Pain, severe (8-10) Stop: 08/17/18 11:12 Last Admin: 08/15/18 22:18 Dose: 1 tab Pantoprazole Sodium (Protonix Ec Tab) 40 mg PO ACB [facility] Last Admin: 08/16/18 08:03 Dose: 40 mg Zolpidem Tartrate (Ambien) 5 mg PO HS [facility] Last Admin: 08/15/18 22:18 Dose: 5 mg - Labs Labs: 08/16/18 07:00 08/16/18 07:00 PT 10.8 SECONDS (9.4-12.5) 08/10/18 14:30 INR 0.95 08/10/18 14:30 APTT 40.8 Seconds (25.1-36.5) H 08/10/18 14:30 - Constitutional Appears: Non-toxic, No Acute Distress, Chronically Ill - Head Exam Head Exam: ATRAUMATIC, NORMOCEPHALIC - Eye Exam Eye Exam: EOMI, PERRL Pupil Exam: NORMAL ACCOMODATION, PERRL - ENT Exam ENT Exam: Mucous Membranes Moist, Normal External Ear Exam, TM's Normal Bilaterally - Neck Exam Neck Exam: Full ROM, Normal Inspection - Respiratory Exam Respiratory Exam: Clear to Ausculation Bilateral, NORMAL BREATHING PATTERN. absent: Rales, Rhonchi, Wheezes - Cardiovascular Exam Cardiovascular Exam: REGULAR RHYTHM, RRR, +S1, +S2 - GI/Abdominal Exam GI & Abdominal Exam: Soft, Normal Bowel Sounds. 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 Assessment and Plan - Assessment and Plan (Free Text) Assessment: 52 yo female with left lower extremity pain on plantar service of her foot. History of E. coli and MRSA. Started on Zosyn and Zyvox due to Vancomycin allergies. Wound care as per Podiatry. Check ESR. Cultures again showing E. coli and MRSA. Patient making no complaint currently. ESR of 111 and now to 88. She will need a minimum of 2 weeks equivalent of IV antibiotic unless Podiatry feels it is osteomyelitis. If podiatry feels the patient has an active osteomyelitis, the patient would need a 6 week equivalent. Supportive care. Podiatry stating that the patient does not fulfull criteria for osteomyelitis. However, there are concerns given an ESR of 111 to start with. While Zyvox has good bioavailability IV or PO and can be given up to 6 weeks for the possibility of osteomyelitis. Oral treatment with Keflex 500mg QID for treatment of the E. coli for proper treatment. Maintain on Zosyn and Zyvox while in hospital. Spoke with Dr. Singleton who feels strongly about osteomyelitis in this patient. MRI pending. Thank you for allowing me to participate in the care of the patient, we will follow with you.
[2018-08-16] MEDS: Insulin Lispro (humaLOG) MIX 75/25(10 ml) SC SCH (18:00)
[2018-08-16] MEDS: Oxycodone/Acetaminophen 5/325 mg Tab PO PRN (18:06)
[2018-08-17] MEDS: Oxycodone/Acetaminophen 5/325 mg Tab PO PRN ×3 (05:44→21:45)
[2018-08-17] MEDS: Piperacillin/Tazobact 3.375 gm 100 ML IVPB SCH ×3 (05:45→21:31)
[2018-08-17 07:07] LABS: BASO # 0.06 K/mm3 (0.0-2.0); BASO % 1.2 % (0.0-3.0); EOS # 0.3 (0.0-0.7); EOS % 5.3 % (1.5-5.0); GRAN # 2.41 (1.4-6.5); GRAN % 48.7 % (50.0-68.0); HEMOGLOBIN 11.6 g/dL (12.0-16.0); LYMPH # 1.7 (1.2-3.4); LYMPH % 34.5 % (22.0-35.0); MEAN CELL VOLUME 89.3 fl (80.0-105.0); MEAN CORPUSCULAR HEMOGLOBIN 28.9 pg (25.0-35.0); MEAN CORPUSCULAR HGB CONC 32.4 g/dl (31.0-37.0); MONO # 0.5 (0.1-0.6); MONO % 10.3 % (1.0-6.0); RBC 4.01 10^6/uL (3.5-6.1); RED CELL DISTRIBUTION WIDTH 12.6 % (11.5-14.5)
[2018-08-17 07:32] LABS: ALB/GLOB RATIO 1.1 (1.1-1.8); ALBUMIN 3.9 g/dL (3.0-4.8); ALT/SGPT 19 U/L (7-56); AST/SGOT 29 U/L (14-36); BLOOD UREA NITROGEN 27 mg/dL (7-21); CALCIUM 9.3 mg/dL (8.4-10.5); GFR NON-AFRICAN AMERICAN 58
[2018-08-17] MEDS: Insulin Lispro (humaLOG) MEDIUM Coverage SC SCH (08:27)
[2018-08-17] MEDS: Insulin Lispro (humaLOG) MIX 75/25(10 ml) SC SCH ×2 (08:28→17:00)
[2018-08-17] MEDS: Pantoprazole 40 mg EC Tab PO SCH (08:29)
--- NOTE | 2018-08-17 09:11 | CP.PCM.PN ---
Objective - Vital Signs/Intake and Output Vital Signs (last 24 hours): Temp Pulse Resp BP Pulse Ox 97.3 F L 71 20 106/71 100 08/17/18 06:00 08/17/18 06:00 08/17/18 06:00 08/17/18 06:00 08/17/18 06:00 Intake and Output: 08/17/18 08/17/18 06:59 18:59 Intake Total 780 Balance 780 - Medications Medications: Current Medications Albuterol Sulfate (Albuterol 0.083% Inhal Loly (2.5 Mg/3 Ml) Ud) 2.5 mg IH [id number] PRN PRN Reason: Shortness of Breath Alprazolam (Xanax) 0.5 mg PO Q12 [facility]; Protocol Last Admin: 08/16/18 22:18 Dose: 0.5 mg Atorvastatin Calcium (Lipitor) 10 mg PO HS [facility] Last Admin: 08/16/18 22:14 Dose: 10 mg Dextrose (Dextrose 50% Inj) 0 ml IV STAT PRN; Protocol PRN Reason: Hypoglycemia Protocol Gemfibrozil (Lopid) 600 mg PO DAILY [facility] Last Admin: 08/16/18 09:13 Dose: 600 mg Heparin Sodium (Porcine) (Heparin) 5,000 units SC Q12 [facility]; Protocol Last Admin: 08/16/18 23:09 Dose: Not Given Dextrose (Dextrose 5% In Water 1000 Ml) 1,000 mls @ 0 mls/hr IV .Q0M PRN; Protocol PRN Reason: Hypoglycemia Protocol Linezolid (Zyvox 600mg/300ml D5w) 600 mg in 300 mls @ 200 mls/hr IVPB Q12 [facility]; Protocol Last Admin: 08/16/18 22:08 Dose: 200 mls/hr Piperacillin Sod/Tazobactam Sod (Zosyn 3.375 In Ns 100ml) 100 mls @ 25 mls/hr IVPB Q8 [facility]; Protocol Last Admin: 08/17/18 05:45 Dose: 25 mls/hr Insulin Human Regular (Humulin R High) 0 units SC ACHS [facility]; Protocol Insulin Lispro Protam/Lispro Human (Humalog Mix 75/25) 21 units SC BIDWM [facility] Last Admin: 08/17/18 08:28 Dose: 21 unit Non-Formulary Medication (Fluticasone/Vilanterol 200/25 [Breo Ellipta 200-25 Mcg Inh]) 1 puff IH DAILY [facility] Last Admin: 08/16/18 11:20 Dose: Not Given Oxycodone/Acetaminophen (Percocet 5/325 Mg Tab) 1 tab PO Q6H PRN PRN Reason: Pain, severe (8-10) Stop: 08/17/18 11:12 Last Admin: 08/17/18 05:44 Dose: 1 tab Pantoprazole Sodium (Protonix Ec Tab) 40 mg PO ACB [facility] Last Admin: 08/17/18 08:29 Dose: 40 mg Zolpidem Tartrate (Ambien) 5 mg PO HS [facility] Last Admin: 08/16/18 22:14 Dose: 5 mg - Labs Labs: 08/17/18 06:20 08/17/18 06:20 PT 10.8 SECONDS (9.4-12.5) 08/10/18 14:30 INR 0.95 08/10/18 14:30 APTT 40.8 Seconds (25.1-36.5) H 08/10/18 14:30
[2018-08-17] MEDS: [UNRECOGNIZED DRUG - OTHER] IH SCH (10:35)
[2018-08-17] MEDS: Linezolid 600 mg in D5W 300 ml 600 MG/300 ML BAG IVPB SCH ×2 (10:37→22:19)
[2018-08-17] MEDS: Insulin Reg-HIGH-Coverage SC SCH ×2 (12:00→17:00)
--- NOTE | 2018-08-17 13:55 | CP.PCM.PN ---
<Valeria Claros L - Last Filed: 08/17/18 13:55> Subjective - Date & Time of Evaluation Date of Evaluation: 08/17/18 Time of Evaluation: 07:30 - Subjective Subjective: Resident Progress Note for Hospitalist Service Patient examined at bedside. Patient admits to continuous diarrhea, states she had several episodes overnight. However, she states they have lessened in severity. Patient states her pain is well controlled. Has no other complaints at this time. Denies fevers, chills, shortness of breath, chest pain, abdominal pain, dysuria. Objective - Vital Signs/Intake and Output Vital Signs (last 24 hours): Temp Pulse Resp BP Pulse Ox 97.3 F L 71 20 106/71 100 08/17/18 06:00 08/17/18 06:00 08/17/18 06:00 08/17/18 06:00 08/17/18 06:00 Intake and Output: 08/17/18 08/17/18 06:59 18:59 Intake Total 780 Balance 780 - Medications Medications: Current Medications Albuterol Sulfate (Albuterol 0.083% Inhal Loly (2.5 Mg/3 Ml) Ud) 2.5 mg IH [id number] PRN PRN Reason: Shortness of Breath Alprazolam (Xanax) 0.5 mg PO Q12 [facility]; Protocol Last Admin: 08/17/18 10:41 Dose: 0.5 mg Atorvastatin Calcium (Lipitor) 10 mg PO HS [facility] Last Admin: 08/16/18 22:14 Dose: 10 mg Dextrose (Dextrose 50% Inj) 0 ml IV STAT PRN; Protocol PRN Reason: Hypoglycemia Protocol Gemfibrozil (Lopid) 600 mg PO DAILY [facility] Last Admin: 08/17/18 10:35 Dose: 600 mg Heparin Sodium (Porcine) (Heparin) 5,000 units SC Q8 [facility]; Protocol Last Admin: 08/17/18 13:14 Dose: 5,000 units Dextrose (Dextrose 5% In Water 1000 Ml) 1,000 mls @ 0 mls/hr IV .Q0M PRN; P rotocol PRN Reason: Hypoglycemia Protocol Linezolid (Zyvox 600mg/300ml D5w) 600 mg in 300 mls @ 200 mls/hr IVPB Q12 [facility]; Protocol Last Admin: 08/17/18 10:37 Dose: 200 mls/hr Piperacillin Sod/Tazobactam Sod (Zosyn 3.375 In Ns 100ml) 100 mls @ 25 mls/hr IVPB Q8 [facility]; Protocol Last Admin: 08/17/18 05:45 Dose: 25 mls/hr Insulin Human Regular (Humulin R High) 0 units SC ACHS [facility]; Protocol Last Admin: 08/17/18 12:00 Dose: 4 u Insulin Lispro Protam/Lispro Human (Humalog Mix 75/25) 21 units SC BIDWM [facility] Last Admin: 08/17/18 08:28 Dose: 21 unit Non-Formulary Medication (Fluticasone/Vilanterol 200/25 [Breo Ellipta 200-25 Mcg Inh]) 1 puff IH DAILY [facility] Last Admin: 08/17/18 10:35 Dose: Not Given Pantoprazole Sodium (Protonix Ec Tab) 40 mg PO ACB [facility] Last Admin: 08/17/18 08:29 Dose: 40 mg Zolpidem Tartrate (Ambien) 5 mg PO HS [facility] Last Admin: 08/16/18 22:14 Dose: 5 mg - Labs Labs: 08/17/18 06:20 08/17/18 06:20 PT 10.8 SECONDS (9.4-12.5) 08/10/18 14:30 INR 0.95 08/10/18 14:30 APTT 40.8 Seconds (25.1-36.5) H 08/10/18 14:30 - Additional Findings Additional findings: - Constitutional Appears: Non-toxic, No Acute Distress - Head Exam Head Exam: ATRAUMATIC, NORMOCEPHALIC - Eye Exam Eye Exam: EOMI, Normal appearance - ENT Exam ENT Exam: Mucous Membranes Moist, Normal Exam - Neck Exam Neck exam: Positive for: Normal Inspection. Negative for: Lymphadenopathy, Tenderness - Respiratory Exam Respiratory Exam: Clear to Auscultation Bilateral, NORMAL BREATHING PATTERN. absent: Rales, Rhonchi, Wheezes, Respiratory Distress - Cardiovascular Exam Cardiovascular Exam: REGULAR RHYTHM, +S1, +S2 - GI/Abdominal Exam GI & Abdominal Exam: Normal Bowel Sounds, Soft. absent: Tenderness - Extremities Exam Extremities exam: Negative for: pedal edema Additional comments: 6 cm by 4 cm stage 3 wound on plantar surface of LLE. Loose wrapping of surrounding bandage Left 5th ray and 4th digit amputation Erythema surrounding wound No drainage appreciated +2/4 pulses - Neurological Exam Neurological exam: Alert, Oriented x3 - Skin Skin Exam: Normal Color, Warm Assessment and Plan - Assessment and Plan (Free Text) Assessment: Patient is a 52 year old female with past medical history of T2DM, HLD, asthma, migraines presenting with chief complaint of left lower extremity pain due to a chronic wound on the plantar surface of her L foot. Plan: LLE wound - s/p wound debridement - Foot x-ray shows soft tissue defect on plantar surface, no adjacent bony destruction to suggest osteomyelitis - ESR 114, CRP 15.90 - Afebrile, no leukocytosis - Zosyn 3.375 gm IV Q8H , Zyvox 600 mg IV Q12 currently - Percocet 1 tab Q6H PRN - Final wound culture + for E coli and MRSA - Prelim blood cultures neg x2 after 4 days - Podiatry consulted. Patient has ? history of OM diagnosed by MRI which she declined iv antibiotics by refusing sub acute care and out-patient infusion. Last MRI was performed 03/09 that was inconclusive. - ID consulted. Patient will need a minimum of 2 weeks equivalent of IV antibiotic unless Podiatry feels it is osteomyelitis. If not, can change Zyvox to PO formulation along with Keflex 500 mg TID. - PT eval - followup MRI Diarrhea - likely due to antibiotics - followup c.diff, if positive will start flagyl T2DM - Hgba1c 11.7 - Humalog moderate ISS - Increased Humulin 75/25 to 21 units BID due to sugars in 200s. Continue to monitor. Hyperkalemia- resolved - Kayexalate 15 gm given - continue to monitor in AM lab HLD - Continue Lipitor 10 mg PO HS, Lopid 600 mg PO daily Asthma - Continue albuterol DVT ppx - Heparin 5000 units SC q8H Dispo: Patient is essentially homeless. SW input and recs appreciated in light of possible change to PO abx. Patient seen, case reviewed and plan approved by Dr. Gabriel Claros, PGY-1 <Queenie Rios - Last Filed: 08/19/18 08:06> Objective - Vital Signs/Intake and Output Vital Signs (last 24 hours): Temp Pulse Resp BP Pulse Ox 97.9 F 76 18 132/75 98 08/18/18 23:19 08/18/18 23:19 08/18/18 23:19 08/18/18 23:19 08/18/18 23:19 Intake and Output: 08/19/18 08/19/18 06:59 18:59 Intake Total 620 Balance 620 - Medications Medications: Current Medications Albuterol Sulfate (Albuterol 0.083% Inhal Loly (2.5 Mg/3 Ml) Ud) 2.5 mg IH [id number] PRN PRN Reason: Shortness of Breath Alprazolam (Xanax) 0.5 mg PO Q12 [facility]; Protocol Last Admin: 08/18/18 22:07 Dose: 0.5 mg Atorvastatin Calcium (Lipitor) 10 mg PO HS [facility] Last Admin: 08/18/18 22:19 Dose: Not Given Dextrose (Dextrose 50% Inj) 0 ml IV STAT PRN; Protocol PRN Reason: Hypoglycemia Protocol Gemfibrozil (Lopid) 600 mg PO DAILY [facility] Last Admin: 08/18/18 10:52 Dose: 600 mg Heparin Sodium (Porcine) (Heparin) 5,000 units SC Q8 [facility]; Protocol Last Admin: 08/19/18 05:50 Dose: Not Given Dextrose (Dextrose 5% In Water 1000 Ml) 1,000 mls @ 0 mls/hr IV .Q0M PRN; Protocol PRN Reason: Hypoglycemia Protocol Linezolid (Zyvox 600mg/300ml D5w) 600 mg in 300 mls @ 200 mls/hr IVPB Q12 [facility]; Protocol Last Admin: 08/18/18 21:30 Dose: 200 mls/hr Piperacillin Sod/Tazobactam Sod (Zosyn 3.375 In Ns 100ml) 100 mls @ 25 mls/hr IVPB Q8 [facility]; Protocol Last Admin: 08/19/18 05:51 Dose: 25 mls/hr Insulin Human Regular (Humulin R High) 0 units SC ACHS [facility]; Protocol Last Admin: 08/18/18 22:11 Dose: Not Given Insulin Lispro Protam/Lispro Human (Humalog Mix 75/25) 25 units SC BIDWM [facility] Last Admin: 08/18/18 16:55 Dose: 25 units Non-Formulary Medication (Fluticasone/Vilanterol 200/25 [Breo Ellipta 200-25 Mcg Inh]) 1 puff IH DAILY [facility] Last Admin: 08/18/18 10:53 Dose: Not Given Oxycodone/Acetaminophen (Percocet 5/325 Mg Tab) 1 tab PO Q6H PRN PRN Reason: Pain, severe (8-10) Stop: 08/20/18 14:30 Last Admin: 08/18/18 11:01 Dose: 1 tab Pantoprazole Sodium (Protonix Ec Tab) 40 mg PO ACB [facility] Last Admin: 08/18/18 08:53 Dose: 40 mg Zolpidem Tartrate (Ambien) 5 mg PO HS [facility] Last Admin: 08/18/18 22:07 Dose: 5 mg - Labs Labs: 08/19/18 05:40 08/19/18 05:40 PT 10.8 SECONDS (9.4-12.5) 08/10/18 14:30 INR 0.95 08/10/18 14:30 APTT 40.8 Seconds (25.1-36.5) H 08/10/18 14:30 Attending/Attestation - Attestation I have personally seen and examined this patient.: Yes I have fully participated in the care of the patient.: Yes I have reviewed all pertinent clinical information, including history, physical exam and plan: Yes Notes (Text): 08/19/18 08:05 Medical record note made by the resident after discussion with my direction and input after the patient was personally seen and examined by me. I have reviewed the chart and agree that the record accurately reflects by personal performance of the history, physical exam, data review, and medical decision-making, in the course for the patient. I have also personally directed the plan of care. 52 year old female with past medical history of diabetes, chronic osteomyelitis ,hyperlipidemia and noncompliance with medication was admitted with diabetic foot infection of left wound,She was seen by podiatry and is s/p debridement. Wound culture is growing E Coli and MRSA. She is on on zosyn and zyvox (has vancomycin allergy).MRI shows marrow edema at base of 4th metatarsal and distal cuboid suggestive of osteomyelitis . We will get PICC line .Patient will need 4 weeks of IV antibiotics. ID and podiatry are following. Prognosis is guarded. Management plan was discussed in detail with patient. Education was provided.
--- NOTE | 2018-08-17 14:07 | MRI ---
Date of service: 08/16/2018 PROCEDURE: HISTORY: L foot ulcer. R/In or Out OM. COMPARISON: TECHNIQUE: FINDINGS: Status post resection of the 5th digit. A small portion of the 5th metatarsal is present. Marrow edema and cortical irregularity of the base of the 4th metatarsal and the distal aspect of the cuboid is present. Osteomyelitis is considered. Dislocation of the 3rd metatarsophalangeal joint and the proximal phalanx displaced volarly. Hammertoe deformities of the 2nd through 4th toes. Mild osteoarthritis of the talonavicular joint. Moderate severe severity degenerative disease of the 2nd and 4th metatarsophalangeal joints. Mild osteoarthritis of the great toe 1st metatarsophalangeal joint. No evidence of fracture. IMPRESSION: Marrow edema the base of the 4th metatarsal and distal cuboid suspicious for osteomyelitis. Associated soft tissue edema compatible with cellulitis. No drainable abscess.
--- NOTE | 2018-08-17 16:26 | CP.PCM.PN ---
Subjective - Date & Time of Evaluation Date of Evaluation: 08/17/18 Time of Evaluation: 14:15 - Subjective Subjective: Infectious Disease Follow Up: August 17, 2018 52 year old female with past medical history of T2DM, HLD, asthma, migraines presenting with chief complaint of left lower extremity pain due to a wound on the plantar surface of her foot. She states this wound has been present for the past two years and she has chronic pain because of this. However the pain has worsened in severity over the past several months. Patient was in [place] recently for management of this wound and was unable to continue recommended antibiotics on discharge due to lack of insurance coverage. She has been taking ciprofloxacin for 2 days which was prescribed by Dr. Singleton. Pain is constant and described as sharp and stabbing in character. She rates the pain +10/10 in severity. She states keeping the foot wrapped and elevating it helps alleviate the pain. She also admits to chills. Denies fevers, nausea, vomiting, chest pain , shortness of breath, abdominal pain, dysuria. Cultures showing Gram negative rods and gram positive cocci. E. Coli and MRSA in June 2018 cultures. Current cultures growing the same organisms of E. Coli and MRSA. The patient has a Vancomycin allergy. Patient is stating that she is homeless. Clinically she is not stating any pain or distress. She appears comfortable. Spoke to Dr. Singleton yesterday. MRI showing left foot 4th metatarsal osteomyelitis. Objective - Vital Signs/Intake and Output Vital Signs (last 24 hours): Temp Pulse Resp BP Pulse Ox 98.7 F 70 18 136/87 100 08/17/18 14:00 08/17/18 14:00 08/17/18 14:00 08/17/18 14:00 08/17/18 14:00 Intake and Output: 08/17/18 08/17/18 06:59 18:59 Intake Total 780 Balance 780 - Medications Medications: Current Medications Albuterol Sulfate (Albuterol 0.083% Inhal Loly (2.5 Mg/3 Ml) Ud) 2.5 mg IH [id number] PRN PRN Reason: Shortness of Breath Alprazolam (Xanax) 0.5 mg PO Q12 [facility]; Protocol Last Admin: 08/17/18 10:41 Dose: 0.5 mg Atorvastatin Calcium (Lipitor) 10 mg PO HS [facility] Last Admin: 08/16/18 22:14 Dose: 10 mg Dextrose (Dextrose 50% Inj) 0 ml IV STAT PRN; Protocol PRN Reason: Hypoglycemia Protocol Gemfibrozil (Lopid) 600 mg PO DAILY [facility] Last Admin: 08/17/18 10:35 Dose: 600 mg Heparin Sodium (Porcine) (Heparin) 5,000 units SC Q8 [facility]; Protocol Last Admin: 08/17/18 13:14 Dose: 5,000 units Dextrose (Dextrose 5% In Water 1000 Ml) 1,000 mls @ 0 mls/hr IV .Q0M PRN; Protocol PRN Reason: Hypoglycemia Protocol Linezolid (Zyvox 600mg/300ml D5w) 600 mg in 300 mls @ 200 mls/hr IVPB Q12 [facility]; Protocol Last Admin: 08/17/18 10:37 Dose: 200 mls/hr Piperacillin Sod/Tazobactam Sod (Zosyn 3.375 In Ns 100ml) 100 mls @ 25 mls/hr IVPB Q8 [facility]; Protocol Last Admin: 08/17/18 14:17 Dose: 25 mls/hr Insulin Human Regular (Humulin R High) 0 units SC ACHS [facility]; Protocol Last Admin: 08/17/18 12:00 Dose: 4 u Insulin Lispro Protam/Lispro Human (Humalog Mix 75/25) 21 units SC BIDWM [facility] Last Admin: 08/17/18 08:28 Dose: 21 unit Non-Formulary Medication (Fluticasone/Vilanterol 200/25 [Breo Ellipta 200-25 Mcg Inh]) 1 puff IH DAILY [facility] Last Admin: 08/17/18 10:35 Dose: Not Given Oxycodone/Acetaminophen (Percocet 5/325 Mg Tab) 1 tab PO Q6H PRN PRN Reason: Pain, severe (8-10) Stop: 08/20/18 14:30 Last Admin: 08/17/18 14:49 Dose: 1 tab Pantoprazole Sodium (Protonix Ec Tab) 40 mg PO ACB [facility] Last Admin: 08/17/18 08:29 Dose: 40 mg Zolpidem Tartrate (Ambien) 5 mg PO HS [facility] Last Admin: 08/16/18 22:14 Dose: 5 mg - Labs Labs: 08/17/18 06:20 08/17/18 06:20 PT 10.8 SECONDS (9.4-12.5) 08/10/18 14:30 INR 0.95 08/10/18 14:30 APTT 40.8 Seconds (25.1-36.5) H 08/10/18 14:30 - Constitutional Appears: Non-toxic, No Acute Distress, Chronically Ill - Head Exam Head Exam: ATRAUMATIC, NORMOCEPHALIC - Eye Exam Eye Exam: EOMI, PERRL Pupil Exam: NORMAL ACCOMODATION, PERRL - ENT Exam ENT Exam: Mucous Membranes Moist, Normal External Ear Exam, TM's Normal Bilaterally - Neck Exam Neck Exam: Full ROM, Normal Inspection - Respiratory Exam Respiratory Exam: Clear to Ausculation Bilateral, NORMAL BREATHING PATTERN. absent: Rales, Rhonchi, Wheezes - Cardiovascular Exam Cardiovascular Exam: REGULAR RHYTHM, RRR, +S1, +S2 - GI/Abdominal Exam GI & Abdominal Exam: Soft, Normal Bowel Sounds. 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 Assessment and Plan - Assessment and Plan (Free Text) Assessment: 52 yo female with left lower extremity pain on plantar service of her foot. History of E. coli and MRSA. Started on Zosyn and Zyvox due to Vancomycin allergies. Wound care as per Podiatry. Check ESR. Cultures again showing E. coli and MRSA. Patient making no complaint currently. ESR of 111 and now to 88. She will need a minimum of 2 weeks equivalent of IV antibiotic unless Podiatry feels it is osteomyelitis. If podiatry feels the patient has an active osteomyelitis, the patient would need a 6 week equivalent. Supportive care. Podiatry stating that the patient does not fulfull criteria for osteomyelitis. However, there are concerns given an ESR of 111 to start with. While Zyvox has good bioavailability IV or PO and can be given up to 6 weeks for the possibility of osteomyelitis. Oral treatment with Keflex 500mg QID for treatment of the E. coli for proper treatment. Maintain on Zosyn and Zyvox while in hospital. Spoke with Dr. Singleton who feels strongly about osteomyelitis in this patient. MRI showing 4th metatarsal osteomyelitis. Thank you for allowing me to participate in the care of the patient, we will follow with you.
--- NOTE | 2018-08-17 21:25 | CP.PCM.PN ---
Subjective - Date & Time of Evaluation Date of Evaluation: 08/17/18 Time of Evaluation: 21:22 - Subjective Subjective: Podiatry Podiatry Note for Dr. Singleton: 52 y/o female patient seen and evaluated for L plantar ulceration. Patient is seen resting comfortably in bed, NAD, Patient states that she have pressure pain with ambulation at the ulcer site. Patient denies any other pedal complaint at this time. Patient denies any overnight F/N/V/SOB/chills Objective - Vital Signs/Intake and Output Vital Signs (last 24 hours): Temp Pulse Resp BP Pulse Ox 98.7 F 70 18 136/87 100 08/17/18 14:00 08/17/18 14:00 08/17/18 14:00 08/17/18 14:00 08/17/18 14:00 Intake and Output: 08/17/18 08/18/18 18:59 06:59 Intake Total 620 Balance 620 - Medications Medications: Current Medications Albuterol Sulfate (Albuterol 0.083% Inhal Loly (2.5 Mg/3 Ml) Ud) 2.5 mg IH [id number] PRN PRN Reason: Shortness of Breath Alprazolam (Xanax) 0.5 mg PO Q12 [facility]; Protocol Last Admin: 08/17/18 10:41 Dose: 0.5 mg Atorvastatin Calcium (Lipitor) 10 mg PO HS [facility] Last Admin: 08/16/18 22:14 Dose: 10 mg Dextrose (Dextrose 50% Inj) 0 ml IV STAT PRN; Protocol PRN Reason: Hypoglycemia Protocol Gemfibrozil (Lopid) 600 mg PO DAILY [facility] Last Admin: 08/17/18 10:35 Dose: 600 mg Heparin Sodium (Porcine) (Heparin) 5,000 units SC Q8 [facility]; Protocol Last Admin: 08/17/18 13:14 Dose: 5,000 units Dextrose (Dextrose 5% In Water 1000 Ml) 1,000 mls @ 0 mls/hr IV .Q0M PRN; Protocol PRN Reason: Hypoglycemia Protocol Linezolid (Zyvox 600mg/300ml D5w) 600 mg in 300 mls @ 200 mls/hr IVPB Q12 [facility]; Protocol Last Admin: 08/17/18 10:37 Dose: 200 mls/hr Piperacillin Sod/Tazobactam Sod (Zosyn 3.375 In Ns 100ml) 100 mls @ 25 mls/hr IVPB Q8 [facility]; Protocol Last Admin: 08/17/18 14:17 Dose: 25 mls/hr Insulin Human Regular (Humulin R High) 0 units SC ACHS [facility]; Protocol Last Admin: 08/17/18 17:00 Dose: 4 u Insulin Lispro Protam/Lispro Human (Humalog Mix 75/25) 21 units SC BIDWM [facility] Last Admin: 08/17/18 17:00 Dose: 21 unit Non-Formulary Medication (Fluticasone/Vilanterol 200/25 [Breo Ellipta 200-25 Mcg Inh]) 1 puff IH DAILY [facility] Last Admin: 08/17/18 10:35 Dose: Not Given Oxycodone/Acetaminophen (Percocet 5/325 Mg Tab) 1 tab PO Q6H PRN PRN Reason: Pain, severe (8-10) Stop: 08/20/18 14:30 Last Admin: 08/17/18 14:49 Dose: 1 tab Pantoprazole Sodium (Protonix Ec Tab) 40 mg PO ACB [facility] Last Admin: 08/17/18 08:29 Dose: 40 mg Zolpidem Tartrate (Ambien) 5 mg PO HS [facility] Last Admin: 08/16/18 22:14 Dose: 5 mg - Labs Labs: 08/17/18 06:20 08/17/18 06:20 PT 10.8 SECONDS (9.4-12.5) 08/10/18 14:30 INR 0.95 08/10/18 14:30 APTT 40.8 Seconds (25.1-36.5) H 08/10/18 14:30 - Constitutional Appears: Well, Non-toxic, No Acute Distress - Head Exam Head Exam: ATRAUMATIC, NORMOCEPHALIC - Extremities Exam Additional comments: Left Lower Extremity Exam: Vasc: DP/PT pulses 1/4 , capillary refill <3 seconds to all remaining digits, temperature gradient warm to cool, no edema present Neuro: Gross sensation intact, diminished protective sensation Derm: 5 cm x 3 cm x 0.8 cm wound present on the lateral aspect of the left plantar midfoot, no drainage, undermining at the proximal aspect, negative probe to bone, no streaking or periwound erythema present, no malodor. MSK: previous fifth ray and 4th digit amputation on the left foot, no pain upon palpation of the ulcer site - Neurological Exam Neurological Exam: Alert, Awake - Psychiatric Exam Psychiatric exam: Normal Affect, Normal Mood Assessment and Plan - Assessment and Plan (Free Text) Assessment: 52 year old female seen and evaluated in ED for left foot plantar ulceration with chronic osteomyelitis. Plan: Patient seen and evaluated at the Bed side Plan reviewed with attending Dr. Singleton Chart, labs and vitals were reviewed- afebrile, absent leukocytosis ESR- 88 () from 114 upon arrival L foot x-rays taken: Post operative changes. Plantar soft tissue ulcer ID consult: Patient will need a minimum of 2 weeks equivalent of IV antibiotic unless Podiatry feels it is osteomyelitis. If podiatry feels the patient has an active osteomyelitis, the patient would need a 6 week equivalent. Continue IV Abx as per Infectious Disease Wound Culture- Eschrechia Coli and MRSA ROBERTO CARLOS/PVR: WNL MRI: marrow edema the base of the 4th met and distal cuboid, suspicious for osteomyelitis, associated soft tissue edema compatible with cellulitis, no abscess Patient to ambulates all the times in the surgical shoe. Wound dressed with xeroform, DSD Podiatry will continue to follow up the patient while in house
[2018-08-18] MEDS: Piperacillin/Tazobact 3.375 gm 100 ML IVPB SCH ×3 (05:51→23:04)
--- NOTE | 2018-08-18 06:19 | CP.PCM.PN ---
<Valeria Claros L - Last Filed: 08/18/18 16:01> Subjective - Date & Time of Evaluation Date of Evaluation: 08/18/18 Time of Evaluation: 06:19 - Subjective Subjective: Resident Progress Note for Hospitalist Service Patient examined at bedside. No acute events overnight. Patient refuses IV antibiotics, stating that she does not want a picc line. She also states she is refusing subacute rehab, even if subacute rehab is covered by her insurance. Patient is irritable and refuses to answer further questions. Objective - Vital Signs/Intake and Output Vital Signs (last 24 hours): Temp Pulse Resp BP Pulse Ox 98 F 18 L 71 H 126/75 99 08/17/18 23:10 08/17/18 23:10 08/17/18 23:10 08/17/18 23:10 08/17/18 23:10 Intake and Output: 08/17/18 08/18/18 18:59 06:59 Intake Total 620 Balance 620 - Medications Medications: Current Medications Albuterol Sulfate (Albuterol 0.083% Inhal Loly (2.5 Mg/3 Ml) Ud) 2.5 mg IH [id number] PRN PRN Reason: Shortness of Breath Alprazolam (Xanax) 0.5 mg PO Q12 [facility]; Protocol Last Admin: 08/17/18 21:38 Dose: 0.5 mg Atorvastatin Calcium (Lipitor) 10 mg PO HS [facility] Last Admin: 08/17/18 21:38 Dose: Not Given Dextrose (Dextrose 50% Inj) 0 ml IV STAT PRN; Protocol PRN Reason: Hypoglycemia Protocol Gemfibrozil (Lopid) 600 mg PO DAILY [facility] Last Admin: 08/17/18 10:35 Dose: 600 mg Heparin Sodium (Porcine) (Heparin) 5,000 units SC Q8 [facility]; Protocol Last Admin: 08/18/18 05:51 Dose: 5,000 units Dextrose (Dextrose 5% In Water 1000 Ml) 1,000 mls @ 0 mls/hr IV .Q0M PRN; Protocol PRN Reason: Hypoglycemia Protocol Linezolid (Zyvox 600mg/300ml D5w) 600 mg in 300 mls @ 200 mls/hr IVPB Q12 [facility]; Protocol Last Admin: 08/17/18 22:19 Dose: 200 mls/hr Piperacillin Sod/Tazobactam Sod (Zosyn 3.375 In Ns 100ml) 100 mls @ 25 mls/hr IVPB Q8 [facility]; Protocol Last Admin: 08/18/18 05:51 Dose: 25 mls/hr Insulin Human Regular (Humulin R High) 0 units SC ACHS [facility]; Protocol Last Admin: 08/17/18 17:00 Dose: 4 u Insulin Lispro Protam/Lispro Human (Humalog Mix 75/25) 21 units SC BIDWM [facility] Last Admin: 08/17/18 17:00 Dose: 21 unit Non-Formulary Medication (Fluticasone/Vilanterol 200/25 [Breo Ellipta 200-25 Mcg Inh]) 1 puff IH DAILY [facility] Last Admin: 08/17/18 10:35 Dose: Not Given Oxycodone/Acetaminophen (Percocet 5/325 Mg Tab) 1 tab PO Q6H PRN PRN Reason: Pain, severe (8-10) Stop: 08/20/18 14:30 Last Admin: 08/17/18 21:45 Dose: 1 tab Pantoprazole Sodium (Protonix Ec Tab) 40 mg PO ACB [facility] Last Admin: 08/17/18 08:29 Dose: 40 mg Zolpidem Tartrate (Ambien) 5 mg PO HS [facility] Last Admin: 08/17/18 21:38 Dose: 5 mg - Labs Labs: 08/17/18 06:20 08/17/18 06:20 PT 10.8 SECONDS (9.4-12.5) 08/10/18 14:30 INR 0.95 08/10/18 14:30 APTT 40.8 Seconds (25.1-36.5) H 08/10/18 14:30 - Additional Findings Additional findings: - Constitutional Appears: Non-toxic, No Acute Distress - Head Exam Head Exam: ATRAUMATIC, NORMOCEPHALIC - Eye Exam Eye Exam: EOMI, Normal appearance - ENT Exam ENT Exam: Mucous Membranes Moist, Normal Exam - Neck Exam Neck exam: Positive for: Normal Inspection. Negative for: Lymphadenopathy, Tenderness - Respiratory Exam Respiratory Exam: Clear to Auscultation Bilateral, NORMAL BREATHING PATTERN. absent: Rales, Rhonchi, Wheezes, Respiratory Distress - Cardiovascular Exam Cardiovascular Exam: REGULAR RHYTHM, +S1, +S2 - GI/Abdominal Exam GI & Abdominal Exam: Normal Bowel Sounds, Soft. absent: Tenderness - Extremities Exam Extremities exam: Negative for: pedal edema Additional comments: 6 cm by 4 cm stage 3 wound on plantar surface of LLE. Loose wrapping of surrounding bandage Left 5th ray and 4th digit amputation Erythema surrounding wound No drainage appreciated +2/4 pulses - Neurological Exam Neurological exam: Alert, Oriented x3 - Skin Skin Exam: Normal Color, Warm Assessment and Plan - Assessment and Plan (Free Text) Assessment: Patient is a 52 year old female with past medical history of T2DM, HLD, asthma, migraines presenting with chief complaint of left lower extremity pain due to a chronic wound on the plantar surface of her L foot. Plan: LLE wound - s/p wound debridement - ESR 114, CRP 15.90 - Afebrile, no leukocytosis - Zosyn 3.375 gm IV Q8H , Zyvox 600 mg IV Q12 currently - Percocet 1 tab Q6H PRN - Final wound culture + for E coli and MRSA - Prelim blood cultures neg x2 after 4 days - Podiatry consulted. Patient has ? history of OM diagnosed by MRI which she declined iv antibiotics by refusing sub acute care and out-patient infusion. Last MRI was performed 03/09 that was inconclusive. - ID consulted. Patient will need a minimum of 2 weeks equivalent of IV antibiotic unless Podiatry feels it is osteomyelitis. If not, can change Zyvox to PO formulation along with Keflex 500 mg TID. - PT eval - MRI shows marrow edema at base of 4th metatarsal and distal cuboid suspicious for osteomyelitis, soft tissue edema compatible with cellulitis Diarrhea - likely due to antibiotics - followup c.diff, if positive will start flagyl T2DM - Hgba1c 11.7 - Humalog moderate ISS - Increased Humulin 75/25 to 25 units BID due to sugars in 200s. Continue to monitor. Hyperkalemia- resolved - Kayexalate 15 gm given - continue to monitor in AM lab HLD - Continue Lipitor 10 mg PO HS, Lopid 600 mg PO daily Asthma - Continue albuterol DVT ppx - Heparin 5000 units SC q8H Dispo: Patient is essentially homeless. SW input and recs appreciated in light of possible change to PO abx. Patient seen, case reviewed and plan approved by Dr. Gabriel Claros, PGY-1 <Queenie Rios - Last Filed: 08/19/18 08:04> Objective - Vital Signs/Intake and Output Vital Signs (last 24 hours): Temp Pulse Resp BP Pulse Ox 97.9 F 76 18 132/75 98 08/18/18 23:19 08/18/18 23:19 08/18/18 23:19 08/18/18 23:19 08/18/18 23:19 Intake and Output: 08/19/18 08/19/18 06:59 18:59 Intake Total 620 Balance 620 - Medications Medications: Current Medications Albuterol Sulfate (Albuterol 0.083% Inhal Loly (2.5 Mg/3 Ml) Ud) 2.5 mg IH [id number] PRN PRN Reason: Shortness of Breath Alprazolam (Xanax) 0.5 mg PO Q12 [facility]; Protocol Last Admin: 08/18/18 22:07 Dose: 0.5 mg Atorvastatin Calcium (Lipitor) 10 mg PO HS [facility] Last Admin: 08/18/18 22:19 Dose: Not Given Dextrose (Dextrose 50% Inj) 0 ml IV STAT PRN; Protocol PRN Reason: Hypoglycemia Protocol Gemfibrozil (Lopid) 600 mg PO DAILY [facility] Last Admin: 08/18/18 10:52 Dose: 600 mg Heparin Sodium (Porcine) (Heparin) 5,000 units SC Q8 [facility]; Protocol Last Admin: 08/19/18 05:50 Dose: Not Given Dextrose (Dextrose 5% In Water 1000 Ml) 1,000 mls @ 0 mls/hr IV .Q0M PRN; Prot ocol PRN Reason: Hypoglycemia Protocol Linezolid (Zyvox 600mg/300ml D5w) 600 mg in 300 mls @ 200 mls/hr IVPB Q12 [facility]; Protocol Last Admin: 08/18/18 21:30 Dose: 200 mls/hr Piperacillin Sod/Tazobactam Sod (Zosyn 3.375 In Ns 100ml) 100 mls @ 25 mls/hr IVPB Q8 [facility]; Protocol Last Admin: 08/19/18 05:51 Dose: 25 mls/hr Insulin Human Regular (Humulin R High) 0 units SC ACHS [facility]; Protocol Last Admin: 08/18/18 22:11 Dose: Not Given Insulin Lispro Protam/Lispro Human (Humalog Mix 75/25) 25 units SC BIDWM [facility] Last Admin: 08/18/18 16:55 Dose: 25 units Non-Formulary Medication (Fluticasone/Vilanterol 200/25 [Breo Ellipta 200-25 Mcg Inh]) 1 puff IH DAILY [facility] Last Admin: 08/18/18 10:53 Dose: Not Given Oxycodone/Acetaminophen (Percocet 5/325 Mg Tab) 1 tab PO Q6H PRN PRN Reason: Pain, severe (8-10) Stop: 08/20/18 14:30 Last Admin: 08/18/18 11:01 Dose: 1 tab Pantoprazole Sodium (Protonix Ec Tab) 40 mg PO ACB [facility] Last Admin: 08/18/18 08:53 Dose: 40 mg Zolpidem Tartrate (Ambien) 5 mg PO HS [facility] Last Admin: 08/18/18 22:07 Dose: 5 mg - Labs Labs: 08/19/18 05:40 08/19/18 05:40 PT 10.8 SECONDS (9.4-12.5) 08/10/18 14:30 INR 0.95 08/10/18 14:30 APTT 40.8 Seconds (25.1-36.5) H 08/10/18 14:30 Attending/Attestation - Attestation I have personally seen and examined this patient.: Yes I have fully participated in the care of the patient.: Yes I have reviewed all pertinent clinical information, including history, physical exam and plan: Yes Notes (Text): 08/19/18 08:03 Medical record note made by the resident after discussion with my direction and input after the patient was personally seen and examined by me. I have reviewed the chart and agree that the record accurately reflects by personal performance of the history, physical exam, data review, and medical decision-making, in the course for the patient. I have also personally directed the plan of care. 52 year old female with past medical history of diabetes, chronic osteomyelitis ,hyperlipidemia and noncompliance with medication was admitted with diabetic foot infection of left wound,She was seen by podiatry and is s/p debridement. Wound culture is growing E Coli and MRSA. She is on on zosyn and zyvox (has vancomycin allergy).MRI shows marrow edema at base of 4th metatarsal and distal cuboid suggestive of osteomyelitis . ID and podiatry are following. Issue of Piic line and IV antibiotics were discussed with patient.She has refused to go to [facility] for IV antibiotics. She want to discuss with her Senior Librarian .Phone call was made to by medical office asst who is going to discuss with patient .If patient will not agree for IV antibiotics , then unfortunately we will discharge patient on oral antibiotics. She is alert, awake and oriented and understood the risk . Prognosis is guarded. Management plan was discussed in detail with patient. Education was provided.
[2018-08-18] MEDS: Insulin Reg-HIGH-Coverage SC SCH ×5 (06:35→22:11)
[2018-08-18 07:12] LABS: BASO # 0.1 K/mm3 (0.0-2.0); BASO % 1.9 % (0.0-3.0); EOS # 0.3 (0.0-0.7); EOS % 5.6 % (1.5-5.0); GRAN # 2.25 (1.4-6.5); GRAN % 43.4 % (50.0-68.0); HEMOGLOBIN 11.7 g/dL (12.0-16.0); LYMPH # 1.9 (1.2-3.4); LYMPH % 36.6 % (22.0-35.0); MEAN CELL VOLUME 88.9 fl (80.0-105.0); MEAN CORPUSCULAR HEMOGLOBIN 28.3 pg (25.0-35.0); MEAN CORPUSCULAR HGB CONC 31.9 g/dl (31.0-37.0); MONO # 0.7 (0.1-0.6); MONO % 12.5 % (1.0-6.0); RBC 4.13 10^6/uL (3.5-6.1); RED CELL DISTRIBUTION WIDTH 12.8 % (11.5-14.5); WHITE BLOOD COUNT 5.2 10^3/uL (4.5-11.0)
[2018-08-18 07:22] LABS: ALB/GLOB RATIO 1.1 (1.1-1.8); ALT/SGPT 20 U/L (7-56); AST/SGOT 21 U/L (14-36); BLOOD UREA NITROGEN 23 mg/dL (7-21); CALCIUM 9.6 mg/dL (8.4-10.5); GFR NON-AFRICAN AMERICAN 52
[2018-08-18] MEDS: Pantoprazole 40 mg EC Tab PO SCH (08:53)
[2018-08-18] MEDS: Insulin Lispro (humaLOG) MIX 75/25(10 ml) SC SCH ×2 (08:54→16:55)
[2018-08-18] MEDS: Linezolid 600 mg in D5W 300 ml 600 MG/300 ML BAG IVPB SCH ×2 (10:53→21:30)
[2018-08-18] MEDS: [UNRECOGNIZED DRUG - OTHER] IH SCH (10:53)
[2018-08-18] MEDS: Oxycodone/Acetaminophen 5/325 mg Tab PO PRN (11:01)
--- NOTE | 2018-08-18 16:28 | CP.PCM.PN ---
Subjective - Date & Time of Evaluation Date of Evaluation: 08/18/18 Time of Evaluation: 14:15 - Subjective Subjective: Infectious Disease Follow Up: August 18, 2018 52 year old female with past medical history of T2DM, HLD, asthma, migraines presenting with chief complaint of left lower extremity pain due to a wound on the plantar surface of her foot. She states this wound has been present for the past two years and she has chronic pain because of this. However the pain has worsened in severity over the past several months. Patient was in [place] recently for management of this wound and was unable to continue recommended antibiotics on discharge due to lack of insurance coverage. She has been taking ciprofloxacin for 2 days which was prescribed by Dr. Singleton. Pain is constant and described as sharp and stabbing in character. She rates the pain +10/10 in severity. She states keeping the foot wrapped and elevating it helps alleviate the pain. She also admits to chills. Denies fevers, nausea, vomiting, chest pain , shortness of breath, abdominal pain, dysuria. Cultures showing Gram negative rods and gram positive cocci. E. Coli and MRSA in June 2018 cultures. Current cultures growing the same organisms of E. Coli and MRSA. The patient has a Vancomycin allergy. Patient is stating that she is homeless. Clinically she is not stating any pain or distress. She appears comfortable. Spoke to Dr. Singleton over the weekend. MRI showing left foot 4th metatarsal osteomyelitis. Today, the patient is now refusing IV antibiotics and demanding to go home with PO antibiotics. Upon discussion with Dr. Singleton, the patient has a history of noncompliance and has never completed treatment for osteomyelitis. She is refusing REECE as well. She became belligerent once REECE and discharge from the hospital was mentioned to her. Objective - Vital Signs/Intake and Output Vital Signs (last 24 hours): Temp Pulse Resp BP Pulse Ox 98 F 67 20 122/80 100 08/18/18 06:00 08/18/18 06:00 08/18/18 06:00 08/18/18 06:00 08/18/18 06:00 Intake and Output: 08/18/18 08/18/18 06:59 18:59 Intake Total 1240 Balance 1240 - Medications Medications: Current Medications Albuterol Sulfate (Albuterol 0.083% Inhal Loly (2.5 Mg/3 Ml) Ud) 2.5 mg IH [id number] PRN PRN Reason: Shortness of Breath Alprazolam (Xanax) 0.5 mg PO Q12 [facility]; Protocol Last Admin: 08/18/18 10:52 Dose: 0.5 mg Atorvastatin Calcium (Lipitor) 10 mg PO HS [facility] Last Admin: 08/17/18 21:38 Dose: Not Given Dextrose (Dextrose 50% Inj) 0 ml IV STAT PRN; Protocol PRN Reason: Hypoglycemia Protocol Gemfibrozil (Lopid) 600 mg PO DAILY [facility] Last Admin: 08/18/18 10:52 Dose: 600 mg Heparin Sodium (Porcine) (Heparin) 5,000 units SC Q8 [facility]; Protocol Last Admin: 08/18/18 05:51 Dose: 5,000 units Dextrose (Dextrose 5% In Water 1000 Ml) 1,000 mls @ 0 mls/hr IV .Q0M PRN; Protocol PRN Reason: Hypoglycemia Protocol Linezolid (Zyvox 600mg/300ml D5w) 600 mg in 300 mls @ 200 mls/hr IVPB Q12 [facility]; Protocol Last Admin: 08/18/18 10:53 Dose: 200 mls/hr Piperacillin Sod/Tazobactam Sod (Zosyn 3.375 In Ns 100ml) 100 mls @ 25 mls/hr IVPB Q8 [facility]; Protocol Last Admin: 08/18/18 13:44 Dose: 25 mls/hr Insulin Human Regular (Humulin R High) 0 units SC ACHS [facility]; Protocol Last Admin: 08/18/18 12:51 Dose: 7 u Insulin Lispro Protam/Lispro Human (Humalog Mix 75/25) 25 units SC BIDWM [facility] Non-Formulary Medication (Fluticasone/Vilanterol 200/25 [Breo Ellipta 200-25 Mcg Inh]) 1 puff IH DAILY [facility] Last Admin: 08/18/18 10:53 Dose: Not Given Oxycodone/Acetaminophen (Percocet 5/325 Mg Tab) 1 tab PO Q6H PRN PRN Reason: Pain, severe (8-10) Stop: 08/20/18 14:30 Last Admin: 08/18/18 11:01 Dose: 1 tab Pantoprazole Sodium (Protonix Ec Tab) 40 mg PO ACB [facility] Last Admin: 08/18/18 08:53 Dose: 40 mg Zolpidem Tartrate (Ambien) 5 mg PO HS [facility] Last Admin: 08/17/18 21:38 Dose: 5 mg - Labs Labs: 08/18/18 06:30 08/18/18 06:30 PT 10.8 SECONDS (9.4-12.5) 08/10/18 14:30 INR 0.95 08/10/18 14:30 APTT 40.8 Seconds (25.1-36.5) H 08/10/18 14:30 - Constitutional Appears: Non-toxic, No Acute Distress, Chronically Ill - Head Exam Head Exam: ATRAUMATIC, NORMOCEPHALIC - Eye Exam Eye Exam: EOMI, PERRL Pupil Exam: NORMAL ACCOMODATION, PERRL - ENT Exam ENT Exam: Mucous Membranes Moist, Normal External Ear Exam, TM's Normal Bilaterally - Neck Exam Neck Exam: Full ROM, Normal Inspection - Respiratory Exam Respiratory Exam: Clear to Ausculation Bilateral, NORMAL BREATHING PATTERN. absent: Rales, Rhonchi, Wheezes - Cardiovascular Exam Cardiovascular Exam: REGULAR RHYTHM, RRR, +S1, +S2 - GI/Abdominal Exam GI & Abdominal Exam: Soft, Normal Bowel Sounds. absent: Distended, Tenderness - Extremities Exam Additional comments: 6 cm by 4 cm stage 3 wound on plantar surface of LLE Left 5th ray and 4th digit amputation Erythema surrounding wound No drainage +2/4 pulses - Neurological Exam Neurological Exam: Alert, Awake, CN II-XII Intact, Oriented x3 - Psychiatric Exam Psychiatric exam: Normal Affect, Normal Mood - Skin Additional comments: As above Assessment and Plan - Assessment and Plan (Free Text) Assessment: 52 yo female with left lower extremity pain on plantar service of her foot. History of E. coli and MRSA. Started on Zosyn and Zyvox due to Vancomycin allergies. Wound care as per Podiatry. Check ESR. Cultures again showing E. coli and MRSA. Patient making no complaint currently. ESR of 111 and now to 88. She will need a minimum of 2 weeks equivalent of IV antibiotic unless Podiatry feels it is osteomyelitis. If podiatry feels the patient has an active osteomyelitis, the patient would need a 6 week equivalent. Supportive care. Podiatry stating that the patient does not fulfull criteria for osteomyelitis. However, there are concerns given an ESR of 111 to start with. While Zyvox has good bioavailability IV or PO and can be given up to 6 weeks for the possibility of osteomyelitis. Oral treatment with Keflex 500mg QID for treatment of the E. coli for proper treatment. Maintain on Zosyn and Zyvox while in hospital. Spoke with Dr. Singleton who feels strongly about osteomyelitis in this patient. MRI showing 4th metatarsal osteomyelitis. The patient today is now refusing IV antibiotics, REECE. She is belligerent today. Thank you for allowing me to participate in the care of the patient, we will follow with you.
--- NOTE | 2018-08-18 16:35 | CP.PCM.PN ---
Subjective - Date & Time of Evaluation Date of Evaluation: 08/18/18 Time of Evaluation: 16:35 - Subjective Subjective: Podiatry Podiatry Note for Dr. Singleton: 52 y/o female patient seen and evaluated for L plantar ulceration. Patient is seen resting comfortably in bed, NAD, Patient states that she have pressure pain with ambulation at the ulcer site. Patient is denying IV Antibiotics this time as an outpatient. Patient denies any other pedal complaint at this time. Patient denies any overnight F/N/V/SOB/chills Objective - Vital Signs/Intake and Output Vital Signs (last 24 hours): Temp Pulse Resp BP Pulse Ox 98 F 67 20 122/80 100 08/18/18 06:00 08/18/18 06:00 08/18/18 06:00 08/18/18 06:00 08/18/18 06:00 Intake and Output: 08/18/18 08/18/18 06:59 18:59 Intake Total 1240 Balance 1240 - Medications Medications: Current Medications Albuterol Sulfate (Albuterol 0.083% Inhal Loly (2.5 Mg/3 Ml) Ud) 2.5 mg IH [id number] PRN PRN Reason: Shortness of Breath Alprazolam (Xanax) 0.5 mg PO Q12 [facility]; Protocol Last Admin: 08/18/18 10:52 Dose: 0.5 mg Atorvastatin Calcium (Lipitor) 10 mg PO HS [facility] Last Admin: 08/17/18 21:38 Dose: Not Given Dextrose (Dextrose 50% Inj) 0 ml IV STAT PRN; Protocol PRN Reason: Hypoglycemia Protocol Gemfibrozil (Lopid) 600 mg PO DAILY [facility] Last Admin: 08/18/18 10:52 Dose: 600 mg Heparin Sodium (Porcine) (Heparin) 5,000 units SC Q8 [facility]; Protocol Last Admin: 08/18/18 05:51 Dose: 5,000 units Dextrose (Dextrose 5% In Water 1000 Ml) 1,000 mls @ 0 mls/hr IV .Q0M PRN; Protocol PRN Reason: Hypoglycemia Protocol Linezolid (Zyvox 600mg/300ml D5w) 600 mg in 300 mls @ 200 mls/hr IVPB Q12 [facility]; Protocol Last Admin: 08/18/18 10:53 Dose: 200 mls/hr Piperacillin Sod/Tazobactam Sod (Zosyn 3.375 In Ns 100ml) 100 mls @ 25 mls/hr IVPB Q8 [facility]; Protocol Last Admin: 08/18/18 13:44 Dose: 25 mls/hr Insulin Human Regular (Humulin R High) 0 units SC ACHS [facility]; Protocol Last Admin: 08/18/18 12:51 Dose: 7 u Insulin Lispro Protam/Lispro Human (Humalog Mix 75/25) 25 units SC BIDWM [facility] Non-Formulary Medication (Fluticasone/Vilanterol 200/25 [Breo Ellipta 200-25 Mcg Inh]) 1 puff IH DAILY [facility] Last Admin: 08/18/18 10:53 Dose: Not Given Oxycodone/Acetaminophen (Percocet 5/325 Mg Tab) 1 tab PO Q6H PRN PRN Reason: Pain, severe (8-10) Stop: 08/20/18 14:30 Last Admin: 08/18/18 11:01 Dose: 1 tab Pantoprazole Sodium (Protonix Ec Tab) 40 mg PO ACB [facility] Last Admin: 08/18/18 08:53 Dose: 40 mg Zolpidem Tartrate (Ambien) 5 mg PO HS [facility] Last Admin: 08/17/18 21:38 Dose: 5 mg - Labs Labs: 08/18/18 06:30 08/18/18 06:30 PT 10.8 SECONDS (9.4-12.5) 08/10/18 14:30 INR 0.95 08/10/18 14:30 APTT 40.8 Seconds (25.1-36.5) H 08/10/18 14:30 - Constitutional Appears: Well, Non-toxic, No Acute Distress - Head Exam Head Exam: ATRAUMATIC, NORMOCEPHALIC - Extremities Exam Additional comments: Left Lower Extremity Exam: Vasc: DP/PT pulses 1/4 , capillary refill <3 seconds to all remaining digits, temperature gradient warm to cool, no edema present Neuro: Gross sensation intact, diminished protective sensation Derm: 5 cm x 3 cm x 0.8 cm wound present on the lateral aspect of the left plantar midfoot, no drainage, undermining at the proximal aspect, negative probe to bone, no streaking or periwound erythema present, no malodor. MSK: previous fifth ray and 4th digit amputation on the left foot, no pain upon palpation of the ulcer site - Neurological Exam Neurological Exam: Alert, Awake, Oriented x3 - Psychiatric Exam Psychiatric exam: Normal Affect, Normal Mood Assessment and Plan - Assessment and Plan (Free Text) Assessment: 52 y/o female patient seen and evaluated for left foot plantar ulceration Plan: Patient seen and evaluated at the Bed side Plan reviewed with attending Dr. Singleton Chart, labs and vitals were reviewed- afebrile, absent leukocytosis ESR- 88 () from 114 upon arrival L foot x-rays taken: Post operative changes. Plantar soft tissue ulcer Wound Culture- Eschrechia Coli and MRSA ROBERTO CARLOS/PVR: WNL MRI: marrow edema the base of the 4th met and distal cuboid, suspicious for os teomyelitis, associated soft tissue edema compatible with cellulitis, no abscess Patient to ambulates all the times in the surgical shoe. ID consult: Patient will need a minimum of 2 weeks equivalent of IV antibiotic unless Podiatry feels it is osteomyelitis. If podiatry feels the patient has an active osteomyelitis, the patient would need a 6 week equivalent. Continue IV Abx as per Infectious Disease Patient educated on the importance of IV Abx- and all risks, benefits complications Wound dressed with xeroform, DSD Podiatry will continue to follow up the patient while in house
[2018-08-18 23:20] VITALS: RESP 18; TEMP 97.9
[2018-08-19] MEDS: Piperacillin/Tazobact 3.375 gm 100 ML IVPB SCH (05:51)
[2018-08-19 06:48] LABS: ALB/GLOB RATIO 1.1 (1.1-1.8); ALBUMIN 3.9 g/dL (3.0-4.8); ALT/SGPT 22 U/L (7-56); AST/SGOT 26 U/L (14-36); BLOOD UREA NITROGEN 25 mg/dL (7-21); CALCIUM 9.3 mg/dL (8.4-10.5); GFR NON-AFRICAN AMERICAN 52
[2018-08-19 07:10] LABS: BASO # 0.04 K/mm3 (0.0-2.0); BASO % 0.7 % (0.0-3.0); EOS # 0.3 (0.0-0.7); EOS % 5.4 % (1.5-5.0); GRAN # 2.45 (1.4-6.5); GRAN % 45.9 % (50.0-68.0); HEMOGLOBIN 11.7 g/dL (12.0-16.0); LYMPH # 1.9 (1.2-3.4); LYMPH % 35.7 % (22.0-35.0); MEAN CELL VOLUME 89.9 fl (80.0-105.0); MEAN CORPUSCULAR HEMOGLOBIN 28.9 pg (25.0-35.0); MEAN CORPUSCULAR HGB CONC 32.1 g/dl (31.0-37.0); MEAN PLATELET VOLUME 10.1 fl (7.0-11.0); MONO # 0.7 (0.1-0.6); MONO % 12.3 % (1.0-6.0); RBC 4.05 10^6/uL (3.5-6.1); RED CELL DISTRIBUTION WIDTH 12.8 % (11.5-14.5); WHITE BLOOD COUNT 5.4 10^3/uL (4.5-11.0)
[2018-08-19 08:08] VITALS: BP 118/78; PULSE 70; O2SAT 100
[2018-08-19] MEDS: Insulin Lispro (humaLOG) MIX 75/25(10 ml) SC SCH (08:30)
[2018-08-19] MEDS: Insulin Reg-HIGH-Coverage SC SCH ×2 (08:31→12:42)
[2018-08-19] MEDS: Pantoprazole 40 mg EC Tab PO SCH (08:32)
[2018-08-19] MEDS: Oxycodone/Acetaminophen 5/325 mg Tab PO PRN (08:42)
[2018-08-19] MEDS: [UNRECOGNIZED DRUG - OTHER] IH SCH (10:00)
[2018-08-19] MEDS: Linezolid 600 mg in D5W 300 ml 600 MG/300 ML BAG IVPB SCH (10:25)
--- NOTE | 2018-08-19 11:08 | CP.PCM.PN ---
Subjective - Date & Time of Evaluation Date of Evaluation: 08/19/18 Time of Evaluation: 11:06 - Subjective Subjective: Podiatry Progress Note for Dr. Singleton: 52 y/o female patient seen and evaluated for L plantar ulceration. Patient is seen resting comfortably in bed, in NAD. Patient states that she have pressure pain with ambulation at the ulcer site. Patient is still denying IV Antibiotics at this time as an outpatient due to transportation concerns. Patient is also complaining of pain to left foot throughout the night, and diarrhea due to medications. Patient denies any overnight F/N/V/SOB/chills Objective - Vital Signs/Intake and Output Vital Signs (last 24 hours): Temp Pulse Resp BP Pulse Ox 97.9 F 70 18 118/78 100 08/19/18 06:00 08/19/18 06:00 08/19/18 06:00 08/19/18 06:00 08/19/18 06:00 Intake and Output: 08/19/18 08/19/18 06:59 18:59 Intake Total 620 Balance 620 - Medications Medications: Current Medications Albuterol Sulfate (Albuterol 0.083% Inhal Loly (2.5 Mg/3 Ml) Ud) 2.5 mg IH [id number] PRN PRN Reason: Shortness of Breath Alprazolam (Xanax) 0.5 mg PO Q12 [facility]; Protocol Last Admin: 08/19/18 10:25 Dose: 0.5 mg Atorvastatin Calcium (Lipitor) 10 mg PO HS [facility]ERHCO Last Admin: 08/18/18 22:19 Dose: Not Given Dextrose (Dextrose 50% Inj) 0 ml IV STAT PRN; Protocol PRN Reason: Hypoglycemia Protocol Gemfibrozil (Lopid) 600 mg PO DAILY [facility] Last Admin: 08/19/18 10:25 Dose: 600 mg Heparin Sodium (Porcine) (Heparin) 5,000 units SC Q8 [facility]; Protocol Last Admin: 08/19/18 05:50 Dose: Not Given Dextrose (Dextrose 5% In Water 1000 Ml) 1,000 mls @ 0 mls/hr IV .Q0M PRN; Protocol PRN Reason: Hypoglycemia Protocol Linezolid (Zyvox 600mg/300ml D5w) 600 mg in 300 mls @ 200 mls/hr IVPB Q12 [facility]; Protocol Last Admin: 08/19/18 10:25 Dose: 200 mls/hr Piperacillin Sod/Tazobactam Sod (Zosyn 3.375 In Ns 100ml) 100 mls @ 25 mls/hr IVPB Q8 [facility]; Protocol Last Admin: 08/19/18 05:51 Dose: 25 mls/hr Insulin Human Regular (Humulin R High) 0 units SC ACHS [facility]; Protocol Last Admin: 08/19/18 08:31 Dose: 7 u Insulin Lispro Protam/Lispro Human (Humalog Mix 75/25) 25 units SC BIDWM [facility] Last Admin: 08/19/18 08:30 Dose: 25 units Non-Formulary Medication (Fluticasone/Vilanterol 200/25 [Breo Ellipta 200-25 Mcg Inh]) 1 puff IH DAILY [facility] Last Admin: 08/18/18 10:53 Dose: Not Given Oxycodone/Acetaminophen (Percocet 5/325 Mg Tab) 1 tab PO Q6H PRN PRN Reason: Pain, severe (8-10) Stop: 08/20/18 14:30 Last Admin: 08/19/18 08:42 Dose: 1 tab Pantoprazole Sodium (Protonix Ec Tab) 40 mg PO ACB [facility] Last Admin: 08/19/18 08:32 Dose: 40 mg Zolpidem Tartrate (Ambien) 5 mg PO HS [facility] Last Admin: 08/18/18 22:07 Dose: 5 mg - Labs Labs: 08/19/18 05:40 08/19/18 05:40 PT 10.8 SECONDS (9.4-12.5) 08/10/18 14:30 INR 0.95 08/10/18 14:30 APTT 40.8 Seconds (25.1-36.5) H 08/10/18 14:30 - Constitutional Appears: Well, Non-toxic, No Acute Distress - Head Exam Head Exam: ATRAUMATIC, NORMOCEPHALIC - Extremities Exam Additional comments: Left Lower Extremity Exam: Vasc: DP/PT pulses 1/4 , capillary refill <3 seconds to all remaining digits, temperature gradient warm to cool, no edema present Neuro: Gross sensation intact, diminished protective sensation Derm: 5 cm x 3 cm x 0.8 cm wound present on the lateral aspect of the left plantar midfoot, no drainage, undermining at the proximal aspect, negative probe to bone, no streaking or periwound erythema present, no malodor. MSK: previous fifth ray and 4th digit amputation on the left foot, no pain upon palpation of the ulcer site - Neurological Exam Neurological Exam: Alert, Awake, Oriented x3 - Psychiatric Exam Psychiatric exam: Normal Affect, Normal Mood Assessment and Plan - Assessment and Plan (Free Text) Assessment: 52 y/o female patient seen and evaluated for left foot plantar ulceration Plan: Patient seen and evaluated at the Bed side Plan reviewed with attending Dr. Singleton Chart, labs and vitals were reviewed- afebrile, absent leukocytosis ESR- 88 () from 114 upon arrival L foot x-rays taken: Post operative changes. Plantar soft tissue ulcer Wound Culture- Eschrechia Coli and MRSA ROBERTO CARLOS/PVR: WNL MRI: marrow edema the base of the 4th met and distal cuboid, suspicious for osteomyelitis, associated soft tissue edema compatible with cellulitis, no abscess Patient to ambulates all the times in the surgical shoe. ID consult: Patient will need a minimum of 2 weeks equivalent of IV antibiotic unless Podiatry feels it is osteomyelitis. If podiatry feels the patient has an active osteomyelitis, the patient would need a 6 week equivalent. Continue IV Abx as per Infectious Disease Patient educated on the importance of IV Abx- and all risks, benefits complications Patient still refusing IV Abx at this time, patient has agreed to PO Antibiotics Infectious disease recommendations regarding PO Abx are appreciated Wound dressed with xeroform, DSD Podiatry will continue to follow up the patient while in house
--- NOTE | 2018-08-19 12:36 | CP.PCM.DIS ---
<Valeria Claros L - Last Filed: 08/19/18 14:17> Provider - Provider Date of Admission: 08/10/18 16:50 Attending physician: Queenie Rios MD Primary care physician: Tejas Vallejo MD Consults: Dr. Adin Singleton Time Spent in preparation of Discharge (in minutes): 45 Diagnosis - Discharge Diagnosis (1) Acute on chronic osteomyelitis Status: Acute (2) Chronic foot ulcer Status: Chronic Hospital Course - Lab Results Lab Results: Micro Results 08/16/18 18:19 Stool C. difficile Antigen & Toxins A,B - Final 08/10/18 21:52 Blood Blood Culture - Final NO GROWTH AFTER 5 DAYS 08/10/18 21:52 Blood Gram Stain - Final TEST NOT PERFORMED 08/10/18 21:52 Blood Blood Culture - Final NO GROWTH AFTER 5 DAYS 08/10/18 21:52 Blood Gram Stain - Final TEST NOT PERFORMED 08/10/18 14:30 Foot - Left Gram Stain - Final 08/10/18 14:30 Foot - Left Wound Culture - Final Escherichia Coli Methicillin Resistant S Aureus Most Recent Lab Values WBC 5.4 10^3/uL (4.5-11.0) 08/19/18 05:40 RBC 4.05 10^6/uL (3.5-6.1) 08/19/18 05:40 Hgb 11.7 g/dL (12.0-16.0) L 08/19/18 05:40 Hct 36.4 % (36.0-48.0) 08/19/18 05:40 MCV 89.9 fl (80.0-105.0) 08/19/18 05:40 MCH 28.9 pg (25.0-35.0) 08/19/18 05:40 MCHC 32.1 g/dl (31.0-37.0) 08/19/18 05:40 RDW 12.8 % (11.5-14.5) 08/19/18 05:40 Plt Count 320 10^3/uL (120.0-450.0) 08/19/18 05:40 MPV 10.1 fl (7.0-11.0) 08/19/18 05:40 Gran % 45.9 % (50.0-68.0) L 08/19/18 05:40 Lymph % (Auto) 35.7 % (22.0-35.0) H 08/19/18 05:40 Hopkins % (Auto) 12.3 % (1.0-6.0) H 08/19/18 05:40 Eos % (Auto) 5.4 % (1.5-5.0) H 08/19/18 05:40 Baso % (Auto) 0.7 % (0.0-3.0) 08/19/18 05:40 Gran # 2.45 (1.4-6.5) 08/19/18 05:40 Lymph # (Auto) 1.9 (1.2-3.4) 08/19/18 05:40 Hopkins # (Auto) 0.7 (0.1-0.6) H 08/19/18 05:40 Eos # (Auto) 0.3 (0.0-0.7) 08/19/18 05:40 Baso # (Auto) 0.04 K/mm3 (0.0-2.0) 08/19/18 05:40 ESR 88 mm/hr (0.0-20.0) H 08/12/18 06:30 PT 10.8 SECONDS (9.4-12.5) 08/10/18 14:30 INR 0.95 08/10/18 14:30 APTT 40.8 Seconds (25.1-36.5) H 08/10/18 14:30 Sodium 137 mmol/L (132-148) 08/19/18 05:40 Potassium 4.9 mmol/L (3.6-5.0) 08/19/18 05:40 Chloride 104 mmol/L (98-107) 08/19/18 05:40 Carbon Dioxide 26 mmol/L (21-33) 08/19/18 05:40 Anion Gap 13 (10-20) 08/19/18 05:40 BUN 25 mg/dL (7-21) H 08/19/18 05:40 Creatinine 1.1 mg/dl (0.7-1.2) 08/19/18 05:40 Est GFR ( Amer) > 60 08/19/18 05:40 Est GFR (Non-Af Amer) 52 08/19/18 05:40 POC Glucose (mg/dL) 275 mg/dL (65-110) H 08/19/18 06:36 Random Glucose 278 mg/dL (70-110) H 08/19/18 05:40 Hemoglobin A1c 11.7 % (4.2-6.5) H 08/11/18 04:00 Calcium 9.3 mg/dL (8.4-10.5) 08/19/18 05:40 Phosphorus 4.3 mg/dL (2.5-4.5) 08/18/18 06:30 Magnesium 2.1 mg/dL (1.7-2.2) 08/18/18 06:30 Total Bilirubin 0.3 mg/dL (0.2-1.3) 08/19/18 05:40 AST 26 U/L (14-36) 08/19/18 05:40 ALT 22 U/L (7-56) 08/19/18 05:40 Alkaline Phosphatase 123 U/L (38-126) 08/19/18 05:40 C-Reactive Protein 37.50 mg/L (0.0-9.9) H 08/12/18 06:30 Total Protein 7.6 g/dL (5.8-8.3) 08/19/18 05:40 Albumin 3.9 g/dL (3.0-4.8) 08/19/18 05:40 Globulin 3.7 gm/dL 08/19/18 05:40 Albumin/Globulin Ratio 1.1 (1.1-1.8) 08/19/18 05:40 - Hospital Course Hospital Course: On admission: Patient is a 52 year old female with past medical history of T2DM, HLD, asthma, migraines presenting with chief complaint of left lower extremity pain due to a wound on the plantar surface of her foot. She states this wound has been present for the past two years and she has chronic pain because of this. However the pain has worsened in severity over the past several months. Patient was in [place] recently for management of this wound and was unable to continue recommended antibiotics on discharge due to lack of insurance coverage. She has been taking ciprofloxacin for 2 days which was prescribed by Dr. Singleton. Pain is constant and described as sharp and stabbing in character. She rates the pain +10/10 in severity. She states keeping the foot wrapped and elevating it helps alleviate the pain. She also admits to chills. Denies fevers, nausea, vomiting, chest pain, shortness of breath, abdominal pain, dysuria. Hospital course: On presentation patient had foot x-ray done which did not show any adjacent bony destruction to suggest osteomyelitis. ESR was 114, CRP 15.90. Patient was afebrile with no leukocytosis. Due to strong suspicion for osteomyelitis given patient's history, patient was started on Zosyn and Zyvox. Patient received debridement of wound. Wound cultures were positive for E.Coli and MRSA. Blood cultures were negative. MRI showed marrow edema at base of 4th metatarsal and distal cuboid suspicious for osteomyelitis, soft tissue edema compatible with cellulitis. ID was consulted, recommended for a total of 6 weeks of antibiotics. Recommendation was made for patient to continue IV antibiotics and to go to subacute rehab, however patient refused. The risks and benefits of not following recommendations were explained to patient. Patient expressed understanding and reiterated that she did not want IV antibiotics, nor placement of a picc line, nor subacute rehab. Patient requested to be discharged on oral antibiotics, even if they do not have proper penetration of her foot wound. - Date & Time of H&P Date of H&P: 08/10/18 Time of H&P: 16:45 Discharge Exam - Additional Findings Additional findings: - Constitutional Appears: Non-toxic, No Acute Distress - Head Exam Head Exam: ATRAUMATIC, NORMOCEPHALIC - Eye Exam Eye Exam: EOMI, Normal appearance - ENT Exam ENT Exam: Mucous Membranes Moist, Normal Exam - Neck Exam Neck exam: Positive for: Normal Inspection. Negative for: Lymphadenopathy, Tenderness - Respiratory Exam Respiratory Exam: Clear to Auscultation Bilateral, NORMAL BREATHING PATTERN - Cardiovascular Exam Cardiovascular Exam: REGULAR RHYTHM, +S1, +S2 - GI/Abdominal Exam GI & Abdominal Exam: Normal Bowel Sounds, Soft. absent: Tenderness - Extremities Exam Extremities exam: Negative for: pedal edema Additional comments: 6 cm by 4 cm stage 3 wound on plantar surface of LLE. Loose wrapping of surrounding bandage Left 5th ray and 4th digit amputation Erythema surrounding wound No drainage appreciated +2/4 pulses - Neurological Exam Neurological exam: Alert, Oriented x3 - Skin Skin Exam: Normal Color, Warm Discharge Plan - Discharge Medications Prescriptions: Cefdinir [Omnicef] 300 mg PO Q12H #66 cap Insulin NPH Hum/Reg Insulin Hm [Humulin 70/30 Kwikpen] 45 unit SQ BID 30 Days insuln.pen Linezolid [Zyvox] 600 mg PO Q12H 33 Days #66 tab - Follow Up Plan Condition: STABLE Disposition: HOME/ ROUTINE Patient education suggested?: Yes Instructions: Type 2 Diabetes, Diabetic Foot Ulcer (DC), Diabetes in Older Adults Additional Instructions: Please follow up with your primary medical doctor Dr. Vallejo within one week. Also follow up with your assistant professor of life sciences Dr. Singleton within one week. A total of 6 weeks of antibiotics is indicated for your osteomyelitis. You have been prescribed oral antibotics Zyvox and Omnicef. Take these medications as prescribed. Resume your home medications as prescribed. A low carbohydrate diet is recommended for better control of your diabetes. Return to ED if symptoms return or worsen. Referrals: Tejas Vallejo MD [Primary Care Provider] - Dmitriy Singleton DPM [Doctor Podiatric Medicine] - <Queenie Rios - Last Filed: 08/19/18 14:42> Provider - Provider Date of Admission: 08/10/18 16:50 Attending physician: Queenie Rios MD Primary care physician: Tejas Vallejo MD Hospital Course - Lab Results Lab Results: Micro Results 08/16/18 18:19 Stool C. difficile Antigen & Toxins A,B - Final 08/10/18 21:52 Blood Blood Culture - Final NO GROWTH AFTER 5 DAYS 08/10/18 21:52 Blood Gram Stain - Final TEST NOT PERFORMED 08/10/18 21:52 Blood Blood Culture - Final NO GROWTH AFTER 5 DAYS 08/10/18 21:52 Blood Gram Stain - Final TEST NOT PERFORMED 08/10/18 14:30 Foot - Left Gram Stain - Final 08/10/18 14:30 Foot - Left Wound Culture - Final Escherichia Coli Methicillin Resistant S Aureus Most Recent Lab Values WBC 5.4 10^3/uL (4.5-11.0) 08/19/18 05:40 RBC 4.05 10^6/uL (3.5-6.1) 08/19/18 05:40 Hgb 11.7 g/dL (12.0-16.0) L 08/19/18 05:40 Hct 36.4 % (36.0-48.0) 08/19/18 05:40 MCV 89.9 fl (80.0-105.0) 08/19/18 05:40 MCH 28.9 pg (25.0-35.0) 08/19/18 05:40 MCHC 32.1 g/dl (31.0-37.0) 08/19/18 05:40 RDW 12.8 % (11.5-14.5) 08/19/18 05:40 Plt Count 320 10^3/uL (120.0-450.0) 08/19/18 05:40 MPV 10.1 fl (7.0-11.0) 08/19/18 05:40 Gran % 45.9 % (50.0-68.0) L 08/19/18 05:40 Lymph % (Auto) 35.7 % (22.0-35.0) H 08/19/18 05:40 Hopkins % (Auto) 12.3 % (1.0-6.0) H 08/19/18 05:40 Eos % (Auto) 5.4 % (1.5-5.0) H 08/19/18 05:40 Baso % (Auto) 0.7 % (0.0-3.0) 08/19/18 05:40 Gran # 2.45 (1.4-6.5) 08/19/18 05:40 Lymph # (Auto) 1.9 (1.2-3.4) 08/19/18 05:40 Hopkins # (Auto) 0.7 (0.1-0.6) H 08/19/18 05:40 Eos # (Auto) 0.3 (0.0-0.7) 08/19/18 05:40 Baso # (Auto) 0.04 K/mm3 (0.0-2.0) 08/19/18 05:40 ESR 88 mm/hr (0.0-20.0) H 08/12/18 06:30 PT 10.8 SECONDS (9.4-12.5) 08/10/18 14:30 INR 0.95 08/10/18 14:30 APTT 40.8 Seconds (25.1-36.5) H 08/10/18 14:30 Sodium 137 mmol/L (132-148) 08/19/18 05:40 Potassium 4.9 mmol/L (3.6-5.0) 08/19/18 05:40 Chloride 104 mmol/L (98-107) 08/19/18 05:40 Carbon Dioxide 26 mmol/L (21-33) 08/19/18 05:40 Anion Gap 13 (10-20) 08/19/18 05:40 BUN 25 mg/dL (7-21) H 08/19/18 05:40 Creatinine 1.1 mg/dl (0.7-1.2) 08/19/18 05:40 Est GFR ( Amer) > 60 08/19/18 05:40 Est GFR (Non-Af Amer) 52 08/19/18 05:40 POC Glucose (mg/dL) 275 mg/dL (65-110) H 08/19/18 06:36 Random Glucose 278 mg/dL (70-110) H 08/19/18 05:40 Hemoglobin A1c 11.7 % (4.2-6.5) H 08/11/18 04:00 Calcium 9.3 mg/dL (8.4-10.5) 08/19/18 05:40 Phosphorus 4.3 mg/dL (2.5-4.5) 08/18/18 06:30 Magnesium 2.1 mg/dL (1.7-2.2) 08/18/18 06:30 Total Bilirubin 0.3 mg/dL (0.2-1.3) 08/19/18 05:40 AST 26 U/L (14-36) 08/19/18 05:40 ALT 22 U/L (7-56) 08/19/18 05:40 Alkaline Phosphatase 123 U/L (38-126) 08/19/18 05:40 C-Reactive Protein 37.50 mg/L (0.0-9.9) H 08/12/18 06:30 Total Protein 7.6 g/dL (5.8-8.3) 08/19/18 05:40 Albumin 3.9 g/dL (3.0-4.8) 08/19/18 05:40 Globulin 3.7 gm/dL 08/19/18 05:40 Albumin/Globulin Ratio 1.1 (1.1-1.8) 08/19/18 05:40 Attending/Attestation - Attestation I have personally seen and examined this patient.: Yes I have fully participated in the care of the patient.: Yes I have reviewed all pertinent clinical information, including history, physical exam and plan: Yes Notes (Text): 08/19/18 14:39 Medical record note made by the resident after discussion with my direction and input after the patient was personally seen and examined by me. I have reviewed the chart and agree that the record accurately reflects by personal performance of the history, physical exam, data review, and medical decision-making, in the course for the patient. I have also personally directed the plan of care. 52 year old female with past medical history of diabetes, chronic osteomyelitis ,hyperlipidemia and noncompliance with medication was admitted with diabetic foot infection of left wound,She was seen by podiatry and is s/p debridement. Wound culture grew E Coli and MRSA. She was treated with zosyn and zyvox (has vancomycin allergy).MRI showed marrow edema at base of 4th metatarsal and distal cuboid suggestive of osteomyelitis . Issue of Piic line and IV antibiotics was discussed with her again .She has refused to go to [facility] for IV antibiotics. . She is alert, awake and oriented and understood the risk . Patient will be discharged home on oral Zyvox and cefdinir. She will need total 6 weeks of therapy. Patient will need weekly CBC and CMP,CRP while on antibiotics Patient will follow up with PCP and Podiatry. Prognosis is guarded. Management plan was discussed in detail with patient. Education was provided.
--- NOTE | 2018-08-19 16:09 | CP.PCM.PN ---
Subjective - Date & Time of Evaluation Date of Evaluation: 08/19/18 Time of Evaluation: 13:00 - Subjective Subjective: Infectious Disease Follow Up: August 19, 2018 52 year old female with past medical history of T2DM, HLD, asthma, migraines presenting with chief complaint of left lower extremity pain due to a wound on the plantar surface of her foot. She states this wound has been present for the past two years and she has chronic pain because of this. However the pain has worsened in severity over the past several months. Patient was in [place] recently for management of this wound and was unable to continue recommended antibiotics on discharge due to lack of insurance coverage. She has been taking ciprofloxacin for 2 days which was prescribed by Dr. Singleton. Pain is constant and described as sharp and stabbing in character. She rates the pain +10/10 in severity. She states keeping the foot wrapped and elevating it helps alleviate the pain. She also admits to chills. Denies fevers, nausea, vomiting, chest pain , shortness of breath, abdominal pain, dysuria. Cultures showing Gram negative rods and gram positive cocci. E. Coli and MRSA in June 2018 cultures. Current cultures growing the same organisms of E. Coli and MRSA. The patient has a Vancomycin allergy. Patient is stating that she is homeless. Clinically she is not stating any pain or distress. She appears comfortable. Spoke to Dr. Singleton over the weekend. MRI showing left foot 4th metatarsal osteomyelitis. Today, the patient is now refusing IV antibiotics and demanding to go home with PO antibiotics. Upon discussion with Dr. Singleton, the patient has a history of noncompliance and has never completed treatment for osteomyelitis. She is refusing REECE as well. She became belligerent once REECE and discharge from the hospital was mentioned to her. 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 Objective - Vital Signs/Intake and Output Vital Signs (last 24 hours): Temp Pulse Resp BP Pulse Ox 97.9 F 70 18 118/78 100 08/19/18 06:00 08/19/18 06:00 08/19/18 06:00 08/19/18 06:00 08/19/18 06:00 Intake and Output: 08/19/18 08/19/18 06:59 18:59 Intake Total 620 Balance 620 - Labs Labs: 08/19/18 05:40 08/19/18 05:40 PT 10.8 SECONDS (9.4-12.5) 08/10/18 14:30 INR 0.95 08/10/18 14:30 APTT 40.8 Seconds (25.1-36.5) H 08/10/18 14:30 - Constitutional Appears: Non-toxic, No Acute Distress, Chronically Ill - Head Exam Head Exam: ATRAUMATIC, NORMOCEPHALIC - Eye Exam Eye Exam: EOMI, PERRL Pupil Exam: NORMAL ACCOMODATION, PERRL - ENT Exam ENT Exam: Mucous Membranes Moist, Normal External Ear Exam, TM's Normal Bilaterally - Neck Exam Neck Exam: Full ROM, Normal Inspection - Respiratory Exam Respiratory Exam: Clear to Ausculation Bilateral, NORMAL BREATHING PATTERN. absent: Rales, Rhonchi, Wheezes - Cardiovascular Exam Cardiovascular Exam: REGULAR RHYTHM, RRR, +S1, +S2 - GI/Abdominal Exam GI & Abdominal Exam: Soft, Normal Bowel Sounds. 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 Assessment and Plan - Assessment and Plan (Free Text) Assessment: 52 yo female with left lower extremity pain on plantar service of her foot. History of E. coli and MRSA. Started on Zosyn and Zyvox due to Vancomycin allergies. Wound care as per Podiatry. Check ESR. Cultures again showing E. coli and MRSA. Patient making no complaint currently. ESR of 111 and now to 88. She will need a minimum of 2 weeks equivalent of IV antibiotic unless Podiatry feels it is osteomyelitis. If podiatry feels the patient has an active osteomyelitis, the patient would need a 6 week equivalent. Supportive care. Podiatry stating that the patient does not fulfull criteria for osteomyelitis. However, there are concerns given an ESR of 111 to start with. While Zyvox has good bioavailability IV or PO and can be given up to 6 weeks for the possibility of osteomyelitis. Oral treatment with Keflex 500mg QID for treatment of the E. coli for proper treatment. MRI showed otherwise. Maintain on Zosyn and Zyvox while in hospital. Spoke with Dr. Singleton who feels strongly about osteomyelitis in this patient. MRI showing 4th metatarsal osteomyelitis. The patient today is now refusing IV antibiotics, REECE. She is belligerent today. 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 Patient informed that due to E. coli and MRSA being in her wounds on multiple occassions with the previous findings of osteomyelitis on MRI in [facility], IV antibiotics would provide the best chance to cure the osteomyelitis of the left foot. Oral antibiotics could be used but provided a significantly less chance of clearing the infection and osteomyelitis. It was extremely likely that after oral antibiotics, the osteomyelitis would still be present in the left foot. Patient reiterated that she wanted ONLY oral antibiotics. She again reiterated that she refused PICC or Midline placement and refused further IV antibiotics. Thank you for allowing me to participate in the care of the patient, we will follow with you.
--- NOTE | 2018-08-24 16:12 | PQF ---
PROVIDER RESPONSE TEXT: Hyperkeratotic lesion debrided to the level subcutaneous tissue wound base. REVIEWER QUERY TEXT: Debridement Type Debridement is documented in the Medical Record. Please specify the type and extent of debridement to include the method and instruments used. Depth of tissue removed: Such as: -- Skin -- Subcutaneous tissue -- Fascia -- Muscle -- Bone -- Other, please specify The patient's Clinical Indicators include: Debridement was done on 08/11, please clarify the depth of debridement. Query created by: Maricarmen Turner on 08/20/2018 8:19 AM Electronically signed by: Dionicio John 08/24/2018 4:09 PM
== END 2018-08-19 13:37 | disposition home or self-care (01) | DRG 287 ==
LOC: ED 12:36 → ERH 16:50 → 5RNO 21:06
PROVIDERS: ADMIT Internal Medicine; ATTEND Internal Medicine
PROC: 3E03328 Introduction of Oxazolidinones into Peripheral Vein, Percutaneous Approach (ICD-10-PCS; 2018-08-10)
PROC: 0JBR0ZZ Excision of Left Foot Subcutaneous Tissue and Fascia, Open Approach (ICD-10-PCS; principal; 2018-08-11)
DX: E11.69 Type 2 diabetes mellitus with other specified complication (principal); L97.529 Non-pressure chronic ulcer of other part of left foot with unspecified severity; J44.9 Chronic obstructive pulmonary disease, unspecified; M86.672 Other chronic osteomyelitis, left ankle and foot; E11.621 Type 2 diabetes mellitus with foot ulcer; E11.649 Type 2 diabetes mellitus with hypoglycemia without coma; B96.20 Unspecified Escherichia coli [E. coli] as the cause of diseases classified elsewhere; B95.62 Methicillin resistant Staphylococcus aureus infection as the cause of diseases classified elsewhere; G89.29 Other chronic pain; E78.5 Hyperlipidemia, unspecified; F17.210 Nicotine dependence, cigarettes, uncomplicated; K21.9 Gastro-esophageal reflux disease without esophagitis; Z59.0 Homelessness; Z91.14 Patient's other noncompliance with medication regimen; Z91.19 Patient's noncompliance with other medical treatment and regimen; Z79.4 Long term (current) use of insulin; Z98.891 History of uterine scar from previous surgery; Z88.1 Allergy status to other antibiotic agents